=== PATIENT | male | born 2000 | race Hispanic/Latino ===

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

== ENCOUNTER 2021-09-04 09:39 | Emergency (ER) | payer SELFPAY ==
[2021-09-04] MEDS ORDERED: NA CHLORIDE 0.9% 1,000 ML ONE (10:16)
[2021-09-04] MEDS ORDERED: METOCLOPRAMIDE 10 MG/2mL INJ ONE (10:16)
[2021-09-04] MEDS ORDERED: DIPHENHYDRAMINE 50 MG/ML VIAL ONE (10:16)
[2021-09-04] MEDS ORDERED: dexAMETHasone 10 MG/ML VIAL ONE (10:16)
[2021-09-04 10:35] LABS: Absolute Lymphocytes (CBC) 3.5 K/uL (0.7-4.9); Lymphocytes % 37.9 % (15.3-44.8); MCV 95.2 fL (80-100); MPV 8.4 fL (7.6-11.3); RBC Red Blood Cell Count 5.25 M/uL (4.33-5.43)
[2021-09-04 10:40] LABS: Protime INR 0.99
--- NOTE | 2021-09-04 10:51 | RAD REPORT ---
EXAM DESCRIPTION: CT - Head Brain Wo Cont - 09/04/2021 10:30 am CLINICAL HISTORY: Headache COMPARISON: 2015 TECHNIQUE: Computed axial tomography of the head was obtained. IV contrast was not requested. All CT scans are performed using dose optimization technique as appropriate and may include automated exposure control or mA/KV adjustment according to patient size. FINDINGS: An intracranial bleed is not seen . The ventricles are normal in caliber. No significant hypodense areas within the brain visualized No extra-axial fluid collection is noted. Fluid within the sinuses/ mastoids is not seen. IMPRESSION: No acute intracranial abnormality is seen. If patient's symptoms persist MRI of the bra in would be recommended.
[2021-09-04 10:56] LABS: Albumin 3.9 g/dL (3.4-5.0); Bilirubin Total 0.3 mg/dL (0.2-1.0); Protein, Total 7.9 g/dL (6.4-8.2)
--- NOTE | 2021-09-04 12:03 | ER ---
Nurse's Notes [facility] Name: Triston Ballard Age: 21 yrs Sex: Male : 2000 Arrival Date: 09/04/2021 Time: 09:41 Bed 14 Private MD: Diagnosis: Unspecified otitis externa, right ear;Headache Presentation: 09/04 09:55 Chief complaint: Patient states: I have been having this headache to the right temporal jg9 area for 3 days and today when I woke up I was very unsteady on my feet and my vision was blurry in the right eye. I normally have headache on both temporal sides but his one is different in that it has lasted longer and is only on one side. Coronavirus screen: Vaccine status: Patient reports receiving the 2nd dose of the covid vaccine. Ebola Screen: Patient negative for fever greater than or equal to 101.5 degrees Fahrenheit, and additional compatible Ebola Virus Disease symptoms Patient denies exposure to infectious person. Patient denies travel to an Ebola-affected area in the 21 days before illness onset. Initial Sepsis Screen: Does the patient meet any 2 criteria? No. Patient's initial sepsis screen is negative. Does the patient have a suspected source of infection? No. Patient's initial sepsis screen is negative. Risk Assessment: Do you want to hurt yourself or someone else? Patient reports no desire to harm self or others. Onset of symptoms is unknown. 09:55 [place] [facility] [place] Acuity: JULIANNE 3 g9 Triage Assessment: 09:55 Headache History: The patient has had previous headaches and this one is different than jg9 previous episodes. General: Appears uncomfortable, Behavior is calm, cooperative. Pain: Complains of pain in right buddhism Pain currently is 9 out of 10 on a pain scale. Pain began 2-3 days ago. Also complains of blurred vision. Neuro: Reports headache in right that is the "worst ever", since 3 days. Cardiovascular: No deficits noted. Respiratory: No deficits noted. GI: No deficits noted. : No deficits noted. Derm: No deficits noted. Musculoskeletal: No deficits noted. Historical: - Allergies: 10:02 NKA; jg9 - PMHx: 10:02 headaches; blood clot in r leg; jg9 - Immunization history:: Client reports receiving the 2nd dose of the Covid vaccine, Pneumococcal vaccine is not up to date, Flu vaccine is up to date. - Social history:: Smoking status: Patient reports the use of cigarette tobacco products, denies chronic smoking, but will smoke occasionally. Screenin:05 Abuse screen: Denies threats or abuse. Denies injuries from another. Nutritional jg9 screening: No deficits noted. Tuberculosis screening: No symptoms or risk factors identified. Fall Risk None identified. Assessment: 10:05 General: Appears in no apparent distress. uncomfortable, Behavior is calm, cooperative. vg1 Pain: Complains of pain in head Pain currently is 9 out of 10 on a pain scale. Pain began 2-3 days ago. Noted to be grimacing. Neuro: Level of Consciousness is awake, alert, obeys commands, Oriented to person, place, time, situation. Cardiovascular: Patient's skin is warm and dry. Respiratory: Airway is patent Respiratory effort is even, unlabored. GI: Abdomen is round non-distended, Patient currently denies pain, vomiting. : No signs and/or symptoms were reported regarding the genitourinary system. EENT: No signs and/or symptoms were reported regarding the EENT system. Derm: Skin is intact, is healthy with good turgor. Musculoskeletal: Circulation, motion, and sensation intact. 11:23 Reassessment: Patient appears in no apparent distress at this time. Patient and/or vg1 family updated on plan of care and expected duration. Pain level reassessed. Patient is alert, oriented x 3, equal unlabored respirations, skin warm/dry/pink. Patient states feeling better. 12:26 Reassessment: Patient appears in no apparent distress at this time. No changes from vg1 previously documented assessment. Patient and/or family updated on plan of care and expected duration. Pain level reassessed. Patient is alert, oriented x 3, equal unlabored respirations, skin warm/dry/pink. Vital Signs: 09:55 BP 127 / 78; Pulse 58; Resp 16 S; Temp 96.6(TE); Pulse Ox 100% on R/A; Weight 97.52 kg jg9 (R); Height 5 ft. 7 in. (170.18 cm) (R); Pain 9/10; 10:15 BP 126 / 77; Pulse 59; Resp 16; Pulse Ox 100% on R/A; vg1 11:21 BP 110 / 72; Pulse 60; Resp 14; Pulse Ox 98% on R/A; vg1 09:55 Body Mass Index 33.67 (97.52 kg, 170.18 cm) jg9 ED Course: 09:41 Patient arrived in ED. am2 09:44 Dick Ma, JOHNSON is PHCP. pm1 09:44 Jason Cifuentes MD is Attending Physician. pm1 10:02 Triage completed. jg9 10:05 Mona Hackett, RN is Primary Nurse. vg1 10:05 Arm band placed on right wrist. jg9 10:05 Patient has correct armband on for positive identification. Bed in low position. Call jg9 light in reach. Side rails up X 1. 10:05 Door closed. Noise minimized. Lights dimmed. jg9 10:14 Initial lab(s) drawn, by il, sent to lab. Inserted saline lock: 20 gauge in right vg1 antecubital area, using aseptic technique. Blood collected. 10:32 CT Head Brain wo Cont In Process Unspecified. EDMS 12:26 No provider procedures requiring assistance completed. IV discontinued, intact, vg1 bleeding controlled, No redness/swelling at site. Pressure dressing applied. Administered Medications: 10:16 Drug: Decadron - Dexamethasone 10 mg Route: IVP; Site: left antecubital; vg1 12:25 Follow up: Response: No adverse reaction vg1 10:18 Drug: Benadryl (diphenhydrAMINE) 12.5 mg Route: IVP; Site: right antecubital; vg1 12:25 Follow up: Response: No adverse reaction vg1 10:20 Drug: Reglan (metoCLOPramide) 10 mg Route: IVP; Site: right antecubital; vg1 12:25 Follow up: Response: No adverse reaction; Marked relief of symptoms vg1 10:20 Drug: NS 0.9% 1000 ml Route: IV; Rate: 1000 ml; Site: right antecubital; vg1 12:25 Follow up: IV Status: Completed infusion; IV Intake: 1000ml vg1 Medication: 10:05 VIS not applicable for this client. vg1 Intake: 12:25 IV: 1000ml; Total: 1000ml. vg1 Outcome: 12:03 Discharge ordered by . pm1 12:25 Discharged to home ambulatory. vg1 12: Condition: good 12:25 Discharge instructions given to patient, Instructed on discharge instructions, follow up and referral plans. medication usage, Demonstrated understanding of instructions, follow-up care, medications, Prescriptions given X 3. 12:27 Patient left the ED. vg1 Signatures: Dispatcher [employer] EDWA Dick Ma NP RETIREMENT ADMINISTRATOR pm1 Genie Angel am2 Mona Hackett, RN RN vg1 Maya Bacon RN RN jg9
--- NOTE | 2021-09-04 12:03 | EDPHYS ---
Physician Documentation [facility] Name: Triston Ballard Age: 21 yrs Sex: Male : 2000 Arrival Date: 09/04/2021 Time: 09:41 Bed 14 Private MD: ED Physician Jason Cifuentes HPI: 09/04 09:57 This 21 yrs old Male presents to ER via Ambulatory with complaints of pm1 Headache, Worst Ever. 09:57 The patient complains of pain to the periauricular with radiation to forehead, cheek pm1 and jaw. The patient describes the headache as aching. Onset: The symptoms/episode began/occurred 4 day(s) ago, Reports pain after having water in his ear and saw his PCP. Instructed to use [id number] medications to remove water. . Associated signs and symptoms: Pertinent negatives: fever, nausea, vision changes, vomiting. Severity of symptoms: in the emergency department the pain is actually worse. The symptoms are alleviated by Darkened room, the symptoms are aggravated by moving his jaw, palpation. The patient has not experienced similar symptoms in the past. The patient has not recently seen a physician. Historical: - Allergies: 10:02 NKA; jg9 - PMHx: 10:02 headaches; blood clot in r leg; jg9 - Immunization history:: Client reports receiving the 2nd dose of the Covid vaccine, Pneumococcal vaccine is not up to date, Flu vaccine is up to date. - Social history:: Smoking status: Patient reports the use of cigarette tobacco products, denies chronic smoking, but will smoke occasionally. ROS: 10:06 Constitutional: Negative for fever, chills, and weight loss. pm1 10:06 Eyes: Negative for injury, pain, redness, and discharge. 10:06 Neck: Negative for injury, pain, and swelling, Cardiovascular: Negative for chest pain, palpitations, and edema, Respiratory: Negative for shortness of breath, cough, wheezing, and pleuritic chest pain, Abdomen/GI: Negative for abdominal pain, nausea, vomiting, diarrhea, and constipation, Skin: Negative for injury, rash, and discoloration. 10:06 ENT: Positive for ear pain, Negative for sore throat. 10:06 Neuro: Positive for headache. 10:06 All other systems are negative. pm1 Exam: 10:06 Constitutional: This is a well developed, well nourished patient who is awake, alert, pm1 and in no acute distress. 10:06 Skin: Warm, dry with normal turgor. Normal color with no rashes, no lesions, and no evidence of cellulitis. MS/ Extremity: Pulses equal, no cyanosis. Neurovascular intact. Full, normal range of motion. 10:06 Head/face: Noted is no obvious of injury or deformity except tenderness, of the right side of forehead, right ear and right lutheran. 10:06 ENT: Ear canal(s): erythema, of the right canal, swelling, of the right canal, TM's: no acute changes, Dental exam: no acute changes. 10:06 Cardiovascular: Exam negative for acute changes, Rate: normal, Rhythm: regular, Pulses: no pulse deficits are appreciated. 10:06 Respiratory: Exam negative for acute changes, respiratory distress, shortness of breath. 10:06 Neuro: Exam negative for acute changes, Orientation: is normal, Mentation: is normal, Motor: is normal, moves all fours. Vital Signs: 09:55 BP 127 / 78; Pulse 58; Resp 16 S; Temp 96.6(TE); Pulse Ox 100% on R/A; Weight 97.52 kg jg9 (R); Height 5 ft. 7 in. (170.18 cm) (R); Pain 9/10; 10:15 BP 126 / 77; Pulse 59; Resp 16; Pulse Ox 100% on R/A; vg1 11:21 BP 110 / 72; Pulse 60; Resp 14; Pulse Ox 98% on R/A; vg1 09:55 Body Mass Index 33.67 (97.52 kg, 170.18 cm) jg9 MDM: 09:46 Patient medically screened. pm1 09:57 Differential diagnosis: cluster headache, migraine, otitis, subarachnoid bleed, pm1 subdural hematoma, temporal arteritis, tension headache, trigeminal neuralgia. 11:58 ED course: Patient reports significant improvement in pain, currently 3/10. pm1 11:58 Data reviewed: vital signs. Data interpreted: Pulse oximetry: on room air is 98 %. pm1 Interpretation: normal. Counseling: I had a detailed discussion with the patient and/or guardian regarding: the historical points, exam findings, and any diagnostic results supporting the discharge/admit diagnosis, the need for outpatient follow up, a family practitioner, a neurologist, to return to the emergency department if symptoms worsen or persist or if there are any questions or concerns that arise at home. 09/04 09:56 Order name: CBC with Diff; Complete Time: 10:48 pm1 09/04 09:56 Order name: CMP; Complete Time: 11:02 pm1 07 09:56 Order name: CT Head Brain wo Cont; Complete Time: 11:02 pm1 09/04 09:56 Order name: Ptt, Activated; Complete Time: 10:48 pm1 09/04 09:56 Order name: PT-INR; Complete Time: 10:48 pm1 09/04 09:56 Order name: IV Saline Lock; Complete Time: 10:25 pm1 Administered Medications: 10:16 Drug: Decadron - Dexamethasone 10 mg Route: IVP; Site: left antecubital; vg1 12:25 Follow up: Response: No adverse reaction vg1 10:18 Drug: Benadryl (diphenhydrAMINE) 12.5 mg Route: IVP; Site: right antecubital; vg1 12:25 Follow up: Response: No adverse reaction vg1 10:20 Drug: Reglan (metoCLOPramide) 10 mg Route: IVP; Site: right antecubital; vg1 12:25 Follow up: Response: No adverse reaction; Marked relief of symptoms vg1 10:20 Drug: NS 0.9% 1000 ml Route: IV; Rate: 1000 ml; Site: right antecubital; vg1 12:25 Follow up: IV Status: Completed infusion; IV Intake: 1000ml vg1 Disposition: 13:17 Co-signature as Attending Physician, Jason Cifuentes MD. rn Disposition Summary: 09/04/21 12:03 Discharge Ordered Location: Home pm1 Problem: new pm1 Symptoms: have improved pm1 Condition: Stable pm1 Diagnosis - Unspecified otitis externa, right ear pm1 - Headache pm1 Followup: pm1 - With: Emergency Department - When: As needed - Reason: Worsening of condition Followup: pm1 - With: Private Physician - When: 2 - 3 days - Reason: Recheck today's complaints, Continuance of care, Re-evaluation by your physician Discharge Instructions: - Discharge Summary Sheet pm1 - Otitis Externa pm1 - General Headache Without Cause pm1 Forms: - Medication Reconciliation Form pm1 - Thank You Letter pm1 - Antibiotic Education pm1 - Prescription Opioid Use pm1 Prescriptions: - Hydrocortisone/neomycin/polymyxin otic suspension 10 mg (1%) / 3.5 mg (0.35%)/10,000 units / 10 mL - instill 4 drop by OTIC route every 6 hours for 10 days; 10 milliliter; Refills: pm1 0, Product Selection Permitted - Medrol (Eric) 4 mg Oral Tablets, Dose Pack - take 1 tablet by ORAL route as directed - follow package instructions; 1 pm1 packet; Refills: 0, Product Selection Permitted - Tylenol-Codeine #3 300 mg-30 mg Oral - take 2 tablet by ORAL route every 6 hours As needed; 20 tablet; Refills: 0, pm1 Product Selection Permitted Signatures: Dispatcher [employer] EDJason Erwin MD MD rn Marinas, Patrick, NP SURGICAL TECHNOLOGY INSTRUCTOR pm1 Mona Hackett RN RN vg1 Maya Bacon RN RN jg9
[2021-09-04 12:47] VITALS: TEMP 96.6
[2021-09-04 12:52] VITALS: BP 110/72; O2SAT 98
== END 2021-09-04 12:27 | disposition home or self-care (01) ==
LOC: ER 09:39
DX: H60.91 Unspecified otitis externa, right ear (principal); F17.210 Nicotine dependence, cigarettes, uncomplicated
CPT/HCPCS: 36415; 70450; 80053; 85025; 85610; 85730; 99284; J1100; J1200; J2765; J7030

== ENCOUNTER 2022-03-06 17:35 | Emergency (ER) | payer SELFPAY ==
--- OUTSIDE RECORDS SUMMARY | 2022-03-06 17:38 | XMS REPORT | Continuity of Care Document ---
:2000 Author Organization [facility] t Address [address] [place] [address] Care Team Providers Name Role Phone PCP, PATIENT DOES NOT HAVE A Primary Care Physician UnavailVIANEY Garg Attending Clinician Unavailable Vianey Suggs Attending Clinician Laura Sanders RN Attending Clinician Unavailable Ana Maria Zhang Attending Clinician Doctor Unassigned, [employer] Attending Clinician Unavailable IRMA DSOUZA Attending Clinician Unavailable Katja Gutierrez Attending Clinician Irma Dsouza MD Attending Clinician IRMA DSOUZA Admitting Clinician Unavailable Irma Dsouza MD Admitting Clinician Problems Condition Condition Condition Status Onset Resolution Last Treating Co mments Source Name Details Category Date Date Treatment Clinician Date DVT (deep DVT (deep Disease Active 2017-02 Uni vers venous venous 2-09 [place]y of [place] ) [address] [place] [address] Obesity Obesity Disease Active 2017-02 Univers (BMI (BMI 2-09 ity of 30-39.9) 30-39.9) 00:00: [address] Allergies, Adverse Reactions, Alerts Allergy Allergy Status Severity Reaction(s) Onset Inactive Treating Comm ents Source Name Type Date Date Clinician NO KNOWN Drug Active Univers ALLERGIE Class ity of S [facility] Social History Social Habit Start Date Stop Date Quantity Comments Source History SDOH University o f Alcohol Frequency [place] [facility] History SDOH University o f Alcohol Std [place] [facility] Drinks Branch History SDOH University o f Alcohol Binge [place] [facility] Exposure to Not sure University of SARS-CoV-2 [facility] (event) Branch History of Cigar Smoker University o f tobacco use [facility] Tobacco use and 2019-08-02 2019-08-02 Never used Universit y of exposure 00:00:00 00:00:00 [facility] Alcohol intake 2019-08-02 2019-08-02 Current drinker Unive rsity of 00:00:00 00:00:00 of alcohol [place] [facility] (finding) Branch Tobacco Comment 2018-02-04 2018-02-04 1 cigar a week Unive rsity of 00:00:00 00:00:00 for the past 1.5 [place] [facility] dical years [place] Alcohol Comment 2017-05-12 2017-05-12 socially Universit y of 00:00:00 00:00:00 [facility] Sex Assigned At [birth year] Universit y of 00:00:00 00:00:00 [facility] Smoking Status Start Date Stop Date Source Former smoker 2019-08-02 00:00:00 2019-08-02 00:00:00 Universi ty of [facility] Current some 2019-01-07 00:00:00 [facility] Medications Ordered Filled Start Stop Current Ordering Indication Dosage Frequency Signature Comments Components Source Medication Medication Date Date Medication? Clinician (SIG) Name Name HYDROcodone 2021- No 1{tbl} 1 tablet, Univers -acetaminop -09 27-08 Oral, ity of hen (NORCO 08:30: 07:29 ONCE, 1 [place] 5) 5-325 mg 00 :00 dose, On Medi cindi tablet 1 03/06/21 Branc h tablet at 0230, KEMI colchicine Yes [id number] Take 2 U nivers 0.6 mg 1-08 pills by ity of tablet 00:00: mouth [place] 00 followed Medical by 1 pill Branch one hour after acetaminoph Yes [id number] 1{tbl} Take 1 Un shantel en-codeine 1-08 tablet by ity of 300-30 mg 00:00: mouth [place] tablet 00 every 4 Medical (four) Branch hours as needed for Pain (scale 7-10). Indication s: acute pain apixaban 5 2020-0 Yes [id number] 5mg Take 1 Unive rs mg tablet 6-29 tablet by ity o f 00:00: mouth 2 (two) Medical times Branch daily. Indication s: Treatment to Prevent Recurrence of a Clot in a Deep Vein apixaban 5 2020-0 Yes [id number] 5mg Take 1 Unive rs mg tablet 6-29 tablet by ity o f 00:00: mouth 2 (two) Medical times Branch daily. Indication s: Treatment to Prevent Recurrence of a Clot in a Deep Vein apixaban 5 2020-0 Yes [id number] 5mg Take 1 Unive rs mg tablet 6-29 tablet by ity o f 00:00: mouth 2 (two) Medical times Branch daily. Indication s: Treatment to Prevent Recurrence of a Clot in a Deep Vein apixaban 5 2020-0 Yes [id number] 5mg Take 1 Unive rs mg tablet 6-29 tablet by ity o f 00:00: mouth 2 (two) Medical times Branch daily. Indication s: Treatment to Prevent Recurrence of a Clot in a Deep Vein apixaban 5 2020-0 Yes [id number] 5mg Take 1 Unive rs mg tablet 6-29 tablet by ity o f 00:00: mouth (two) Medical times Branch daily. Indication s: Treatment to Prevent Recurrence of a Clot in a Deep Vein apixaban 5 2020-0 2020- No 4675 5mg Take 1 Univ ers mg tablet 6-15 06-08 tablet by ity of 00:00: 00:00 mouth 2 00 : (two) Medical times Branch daily for 30 days. Indication s: Treatment to Prevent Recurrence of a Clot in a Deep Vein apixaban 5 2020-0 2020- No 4675 5mg Take 1 Univ ers mg tablet 6-15 06-08 tablet by ity of 00:00: 00:00 mouth 2 00 : (two) Medical times Branch daily. Indication s: Treatment to Prevent Recurrence of a Clot in a Deep Vein docusate 2020-0 Yes 100mg 100 mg, Unive rs (COLACE) 6-08 Oral, ity of capsule 100 14:00: DAILY, [place] mg 00 First dose Medical on Mon Branch 08/05/19 at 0900, Until Discontinu ed, Routine Polyethylen 2020-0 2020- No 17g 17 g, Univ ers e Glycol 08-04- Oral, ity of 3350 03:27: 05:15 ONCE, 1 [place] (MIRALAX) 00 :00 dose, Sun Medic al powder 17 g 08/04/19 at [facility] 2230, Routine melatonin 2019-0 2020- No 6mg 6 mg, Univer s (MELATIN) 08-04- Oral, ity of tablet 6 mg 02:41: 03:16 ONCE, 1 [place] :[place] dose, [place] Medical 08/04/19 at Branch 2145, Routine acetaminoph 2020-0 Yes [id number] 1{tbl} Take 1 Univers en-codeine 6- 9107 tablet by ity of 300-30 mg 00:00: mouth [place] tablet 00 every 4 Medical (four) Branch hours as needed (foot pain). acetaminoph 2019-0 Yes [id number] 1{tbl} Take 1 Univers en-codeine 6- 9107 tablet by ity of 300-30 mg 00:00: mouth [place] tablet 00 every 4 Medical (four) Branch hours as needed (foot pain). acetaminoph 2019-0 Yes [id number] 1{tbl} Take 1 Univers en-codeine 6- 9107 tablet by ity of 300-30 mg 00:00: mouth [place] tablet 00 every 4 Medical (four) Branch hours as needed (foot pain). acetaminoph 2020-0 Yes [id number] 1{tbl} Take 1 Univers en-codeine 6-08 9107 tablet by ity of 300-30 mg 00:00: mouth [place] tablet 00 every 4 Medical (four) Branch hours as needed (foot pain). acetaminoph 2020-0 2021- No [id number] 1{tbl} Take 1 Univers en-codeine 6-08 -08 9107 tablet by ity of 300-30 mg 00:00: 00:00 mouth [place] tablet 00 :00 every 4 Medical (four) Branch hours as needed (foot pain). rivaroxaban 2019-0 2020- No [id number] 15mg Take 1 Uni vers (XARELTO) 08-04-30 tablet by ity of 15 mg 00:00: 04:59 mouth 2 [place] tablet 00 :00 (two) Medical times Branch daily for 21 days. Indication s: Treatment to Prevent Recurrence of a Clot in a Deep Vein rivaroxaban 2019-2019- No 4675 15mg Take 1 Uni vers (XARELTO) 08-04 tablet by ity of 15 mg 00:00: 04:59 mouth 2 [place] tablet 00 :00 (two) Medical times Branch daily for 21 days. Indication s: Treatment to Prevent Recurrence of a Clot in a Deep Vein rivaroxaban 2019-2019- No 4675 15mg Take 1 Uni vers (XARELTO) 08-0430 tablet by ity of 15 mg 00:00: 04:59 mouth 2 [place] tablet 00 :00 (two) Medical times Branch daily for 21 days. Indication s: Treatment to Prevent Recurrence of a Clot in a Deep Vein apixaban 5 2019- No 4675 10mg Take 2 Univ ers mg tablet 08-04 tablets by ity of 00:00: 00:00 mouth 2 [place] 00 :00 (two) Medical times Branch daily for 7 days. Indication s: Treatment to Prevent Recurrence of a Clot in a Deep Vein HYDROcodone Yes 1{tbl} 1 tablet, Univers -acetaminop 08-03 Oral, ity of hen (NORCO) 23:45: Q6HPRN, Cj as 10-325 mg 14 Starting Medica l tablet 1 08/04/19 Branc h tablet at 1845, Until Discontinu ed, Routine, Pain (scale 4-6) melatonin 2019- No 6mg 6 mg, Univer s (MELATIN) 08-03 Oral, ity of tablet 6 mg 08:06: 08:16 ONCE, 1 [place] :[place] dose, Sun Medical 08/04/19 at Branch 0315, Routine lidocaine 2019- No 1{patch 1 Patch, Univers (LIDODERM) 08-03 } Topical, ity of 5 % (700 07:45: 18:39 Administer [place] mg/patch) 00 :00 over 12 Medical patch 1 Hours, Branch Patch ONCE, 1 dose, 08/04/19 at 0245, Routine acetaminoph 2019- No 1{tbl} 1 tablet, Univers en-codeine 08-02 Oral, ity of (TYLENOL 20:14: 23:45 Q4HPRN, [place] #3) 300-30 30 :01 Starting Medic al mg tablet 1 08/03/19 Br anch tablet at 1514, Until 08/04/19 at 1845, Routine, Pain (scale 4-6) morpHINE 2019-0 Yes 2mg 2 mg, Slow Uni vers injection 2 08-02 IV Push, ity of mg 05:57: [facility] [place] [facility] Starting Medical 08/03/19 Branch at 0057, Until Discontinu ed, Routine, Pain (scale 7-10) enoxaparin 2019-0 2020- No 1mg/kg 100 mg Un shantel (LOVENOX) 08-02- (rounded ity o f injection 01:45: 00:54 [place] 104.3 [place] 100 mg 00 :42 mg = 1 Medical mg/kg Branch ?104.3 kg), [facility], ONCE, 1 dose, Mon08/02/19 at 204, KEMI traMADol 2019- No 50mg 50 mg, Univer s (ULTRAM) 08-02 Oral, ity of tablet 50 01:18: 20:14 Q8HPRN, [place] mg 13 :50 Starting Medical 08/02/19 Branch at 2018, Until 08/03/19 at 1514, Routine, Pain (scale 4-6) enoxaparin 2019-0 Yes 1mg/kg 100 mg Uni vers (LOVENOX) 08-02 (rounded ity of injection 01:00: [place] 104.3 [place] 100 mg 00 mg = 1 Medical mg/kg Branch ?104.3 kg), [facility], Q12H, First dose on Mon08/02/19 at 2000, Until Discontinu ed, Routine iohexol 2019- 2020- No 120mL 120 mL, Unive rs (OMNIPAQUE 08-01 Intravenou it y of 350 23:16: 23:17 s, ONCE, 1 [place] BULK-150 00 :00 dose, Fri Medica l mL) 08/02/19 at Branch injection 1830, 120 mL Routine traMADol 50 2018-0 Yes [id number] 50mg Take 1 Univers mg tablet 10-08 [id number] tablet by ity of 00:00: mouth [place] 00 every 6 Medical (six) Branch hours as needed for Pain (scale 4-6). traMADol 50 2018- Yes [id number] 50mg Take 1 Univers mg tablet 8-12 [id number] tablet by ity of 00:00: mouth [place] 00 every 6 Medical (six) Branch hours as needed for Pain (scale 4-6). traMADol 50 2018- 2020- No [id number] 50mg Take 1 Univers mg tablet 8-12 06-08 [id number] tablet by it y of 00:00: 00:00 mouth [place] 00 :00 every 6 Medical (six) Branch hours as needed for Pain (scale 4-6). acetaminoph Yes [id number] 1{tbl} Take 1 Univers en-codeine 7-04 9107 tablet by ity of 300-30 mg 00:00: mouth [place] tablet 00 every 4 Medical (four) Branch hours as needed (foot pain). acetaminoph Yes [id number] 1{tbl} Take 1 Univers en-codeine 7-04 9107 tablet by ity of 300-30 mg 00:00: mouth [place] tablet 00 every 4 Medical (four) Branch hours as needed (foot pain). acetaminoph Yes [id number] 1{tbl} Take 1 Univers en-codeine 7-04 9107 tablet by ity of 300-30 mg 00:00: mouth [place] tablet 00 every 4 Medical (four) Branch hours as needed (foot pain). acetaminoph 2020- No [id number] 1{tbl} Take 1 Univers en-codeine 7-04 06-08 9107 tablet by ity of 300-30 mg 00:00: 00:00 mouth [place] tablet 00 :00 every 4 Medical (four) Branch hours as needed (foot pain). cyclobenzap Yes [id number] 10mg Take 1 Univers rine 10 mg 6-17 tablet by ity of tablet 00:00: mouth 3 [place] 00 (three) Medical times Branch daily. cyclobenzap 2019- No [id number] 10mg Take 1 Univers rine 10 mg 6-17 08-12 tablet by ity of tablet 00:00: 00:00 mouth 3 [place] 00 :00 (three) Medical times Branch daily. traMADOL 2018-0 Yes [id number] 50mg Take 1 Univers (ULTRAM) 50 3-24 9109 tablet by ity of mg tablet 00:00: mouth [place] 00 every 6 Medical (six) Branch hours as needed for Pain (scale 4-6). traMADOL 2019- No [id number] 50mg Take 1 Univers (ULTRAM) 50 3-24 08-12 9109 tablet by it y of mg tablet 00:00: 00:00 mouth [place] 00 :00 every 6 Medical (six) Branch hours as needed for Pain (scale 4-6). apixaban 5 2017-02 Yes 5mg Take 1 Unive rs mg tablet 2-18 tablet by ity o f 00:00: mouth 2 [place] 00 (two) Medical times Branch daily. cephALEXin 2017-02 Yes 500mg Take 1 Univ ers (KEFLEX) 2-18 capsule by ity o f 500 mg 00:00: mouth 4 [place] capsule 00 (four) Medical times Branch daily. apixaban 5 2017-02 Yes 5mg Take 1 Unive rs mg tablet 2-18 tablet by ity o f 00:00: mouth 2 [place] 00 (two) Medical times Branch daily. cephALEXin 2017-02 Yes 500mg Take 1 Univ ers (KEFLEX) 2-18 capsule by ity o f 500 mg 00:00: mouth 4 [place] capsule 00 (four) Medical times Branch daily. apixaban 2017-02 Yes 5mg Take 1 Unive rs mg tablet 2-18 tablet by ity o f 00:00: mouth 2 [place] 00 (two) Medical times Branch daily. cephALEXin 2017-02 Yes 500mg Take 1 Univ ers (KEFLEX) 2-18 capsule by ity o f 500 mg 00:00: mouth 4 [place] capsule 00 (four) Medical times Branch daily. apixaban 5 2017-02- No 5mg Take 1 Univ ers mg tablet 2-18 06-08 tablet by ity of 00:00: 00:00 mouth 2 [place] 00 :00 (two) Medical times Branch daily. cephALEXin 2017-02- No 500mg Take 1 Uni vers (KEFLEX) 2-18 06-08 capsule by ity of 500 mg 00:00: 00:00 mouth 4 [place] capsule 00 :00 (four) Medical times Branch daily. apixaban 5 2017-02 Yes 10mg Take 2 Unive rs mg tablet 2-11 tablets by ity of 00:00: mouth 2 [place] 00 (two) Medical times Branch daily. apixaban 5 2017-02 Yes 10mg Take 2 Unive rs mg tablet 2-11 tablets by ity of 00:00: mouth 2 [place] 00 (two) Medical times Branch daily. apixaban 5 2017-02 Yes 10mg Take 2 Unive rs mg tablet 2-11 tablets by ity of 00:00: mouth 2 [place] 00 (two) Medical times Branch daily. apixaban 5 2017-02 2020- No 10mg Take 2 Univ ers mg tablet 2-11 06-08 tablets by ity of 00:00: 00:00 mouth 2 [place] 00 :00 (two) Medical times Branch daily. Immunizations Ordered Filled Immunization Date Status Comments [facility] e Immunization Name Name Influenza Virus 2017-05-12 Completed Universit y of Vaccine Quad IM 3+ 00:00:00 [facility] Influenza Virus 2017-05-12 Completed Universit y of Vaccine Quad IM 3+ 00:00:00 [facility] Influenza Virus 2017-05-12 Completed Universit y of Vaccine Quad IM 3+ 00:00:00 [facility] Influenza Virus 2017-05-12 Completed Universit y of Vaccine Quad IM 3+ 00:00:00 [facility] Influenza Virus 2017-05-12 Completed Universit y of Vaccine Quad IM 3+ 00:00:00 [facility] Influenza Virus 2017-05-12 Completed Universit y of Vaccine Quad IM 3+ 00:00:00 [facility] Influenza Virus 2017-05-12 Completed Universit y of Vaccine Quad IM 3+ 00:00:00 [facility] Influenza Virus 2017-05-12 Completed Universit y of Vaccine Quad IM 3+ 00:00:00 [facility] Vital Signs Vital Name Observation Time Observation Value Comments Source Systolic blood 2021-03-06 07:31:00 132 mm[Hg] Univer sity of pressure [facility] Diastolic blood 2021-03-06 07:31:00 89 mm[Hg] Unive rsity of pressure [facility] Heart rate 2021-03-06 07:31:00 105 /min [facility] Body temperature 2021-03-06 06:03:00 37.67 Jennie [facility] Respiratory rate 2021-03-06 06:03:00 18 /min Univ ersity of [place] [facility] Body height 2021-03-06 06:03:00 170.2 cm Universi ty of [place] [facility] Body weight 2021-03-06 06:03:00 102.513 kg Universi ty of [place] [facility] BMI 2021-03-06 06:03:00 35.40 kg/m2 Universi ty of [place] [facility] Oxygen saturation in 2021-03-06 06:03:00 97 /min University of Arterial blood by [place] [facility] cindi Pulse oximetry Branch Heart rate 2019-08-05 15:50:00 108 /min Universi ty of [place] [facility] Body temperature 2019-08-05 15:50:00 36.17 Jennie Univ ersity of [place] [facility] Respiratory rate 2019-08-05 15:50:00 18 /min Univ ersity of [place] [facility] Oxygen saturation in 2019-08-05 15:50:00 94 /min University of Arterial blood by [place] [facility]i cindi Pulse oximetry Branch Systolic blood 2019-08-05 15:50:00 124 mm[Hg] Univer sity of pressure [place] [facility] Diastolic blood 2019-08-05 15:50:00 80 mm[Hg] Unive rsity of pressure [place] [facility] Body weight 2019-08-05 09:13:00 102.468 kg Universi ty of [place] [facility] BMI 2019-08-05 09:13:00 38.78 kg/m2 Universi ty of [place] [facility] Body height 2019-08-02 20:57:00 162.6 cm Universi ty of [place] [facility] Systolic blood 2018-10-08 19:00:00 128 mm[Hg] Univer sity of pressure [place] [facility] Diastolic blood 2018-10-08 19:00:00 78 mm[Hg] Unive rsity of pressure [place] [facility] Heart rate 2018-10-08 19:00:00 109 /min Universi ty of [place] [facility] Respiratory rate 2018-10-08 19:00:00 20 /min Univ ersity of [place] [facility] Oxygen saturation in 2018-10-08 19:00:00 97 /min University of Arterial blood by [facility] cindi Pulse oximetry Branch Body temperature 2018-10-08 17:30:00 37.5 Jennie Univ ersity of [place] [facility] Body height 2018-10-08 17:30:00 165.1 cm Universi ty of [place] [facility] Body weight 2018-10-08 17:30:00 97.523 kg [facility] Medical [place] BMI 2018-10-08 17:30:00 35.78 kg/m2 [facility] Medical [place] Procedures Procedure Date / Time Performing Clinician Source Performed NOTICE OF PRIVACY 2021-03-06 05:54:45 Doctor Elly, [facility] PRACTICES [employer] Medical [place] CONSENT/REFUSAL FOR 2021-03-06 05:54:27 Doctor Elly [facility] DIAGNOSIS AND TREATMENT [employer] [facility] MEDICATION CORRESPONDENCE 2019-08-06 05:01:00 Doctor Elly, [facility] [employer] [facility] UNILATERAL VENOUS DUPLEX 2019-08-05 15:42:25 Donaldo Smith [facility] UPPER BY VASCULAR LAB Medical Br anch XR ELBOW <3 VW RIGHT 2019-08-04 15:40:55 Donaldo Smith [facility] BASIC METABOLIC PANEL 2019-08-03 08:41:00 Irma Dsouza [facility] (NA, K, CL, CO2, GLUCOSE, Medica l Branch BUN, CREATININE, CA) COVID-19 (ID NOW RAPID 2019-08-03 00:53:00 Kataj Saez [facility] TESTING) Medical Branch EKG-12 LEAD 2019-08-03 00:39:18 Korin Yen [facility] CT CHEST PULMONARY 2019-08-02 23:25:53 Katja Saez [facility] ANGIOGRAM Medical Branch UNILATERAL VENOUS DUPLEX 2019-08-02 21:43:52 Katja Saez [facility] LOWER EXTREMITY BY Medical [facility] h VASCULAR LAB COMP. METABOLIC PANEL 2019-08-02 21:41:00 Katja Saez [facility] ([id number]) Medical Branch CBC WITH DIFFERENTIAL 2019-08-02 21:41:00 Katja Saez [facility] Medical [place] EKG-12 LEAD 2019-08-02 21:33:27 Katja Saez [employer] [facility] [place] [facility] NOTICE OF PRIVACY 2019-08-02 21:24:25 Doctor Elly, [facility] PRACTICES [employer] Medical [place] CONSENT/REFUSAL FOR 2019-08-02 20:53:33 Doctor Ana Sanabria [facility] DIAGNOSIS AND TREATMENT [employer] [facility] XR ELBOW <3 VW RIGHT 2018-10-08 18:45:13 [facility]ey [facility]ers [facility] VW RIGHT 2018-10-08 18:45:13 Vianey Meyers [facility] CONSENT/REFUSAL FOR 2018-10-08 17:13:21 Doctor Ana Sanabria [facility] DIAGNOSIS AND TREATMENT [employer] [facility] Encounters Start End Encounter Admission Attending Care Care Encounter Source Date/Time Date/Time Type Type Clinicians Facility Department ID 2021-03-06 2021-03-06 Emergency X FELICIANO [facility] ERT [id number] Univers 00:29:00 01:37:00 [facility] 2021-03-06 2021-03-06 [facility] [id number] Univers 00:29:00 01:37:00 Vianey ROLLINS [id number] i ty of [place] 4[place]2.[place] [id number] [facility] 084 Branch 2020-08-29 2020-08-29 Nurse Laura Sanders [id number] Univers 00:00:00 00:00:00 Triage SEVEN [id number] it y of HOSPITAL 4.2.7.2.686 Cj as [id number] [facility] 019 Branch 2019-08-07 2019-08-07 Transition Haydee Zhnag [id number] Univers 00:00:00 00:00:00 of Care Ana Maria Dinero [id number] ity of [place] 4[place].2.686 [place] [id number] [facility] 403 Branch 2019-08-06 2019-08-06 Orders Doctor REYES [id number] Univers 00:00:00 00:00:00 Only Unassigned, SEVEN 350.1.13.10 ity of [employer] [facility] 4.2.7.2.686 Cj as [id number] [facility] 009 Branch 2019-08-02 2019-08-05 Inpatient X LIANNA [facility] [id number] Univers 15:59:29 13:35:00 SHEBEY ity of [facility] 2019-08-02 2019-08-05 [facility] Katja Saez [facility] [id number] Univers 15:59:29 13:35:00 Encounter Irma Dsouza 350.1.13.10 ity of [place] 4.2.7.2.686 [facility] [id number] [place] [id number] Branch 2019-08-02 2019-08-02 Orders Doctor AMY [id number] Univers 00:00:00 00:00:00 Only Unassigned, SEVEN 350.1.13.10 ity of [employer] HOSPITAL 4.2.7.2.686 Cj as [id number] [place] [address] Branch 2018-10-08 2018-10-08 Emergency [facility] [id number] Univers 12:31:39 14:41:00 Vianey Rollins 350.1.13.10 i ty of [place] 4.2.7.2.686 [facility] [id number] [place] 756474 Branch 2018-10-08 2018-10-08 Orders Doctor AMY [id number] Univers 00:00:00 00:00:00 Only Unassigned, SEVEN 350.1.13.10 ity of [employer] HOSPITAL 4.2.7.2.686 Cj as [phone] [address] Results Test Description Test Time Test Comments Results Result Sour e Comments XR ELBOW <3 VW Questionable Univers ity of RIGHT 7 epitrochlear [place] Medica l 18:27:55 lymphadenopathy. No Branc h acute bony abnormality. Mild swelling. EXAM: XR ELBOW <3 VW RIGHT HISTORY: pain COMPARISON: September 2018 FINDINGS: Imaging of the elbow demonstrates a traction enthesophyte versus remoteavulsion extending from the sublime tubercle. An IV catheter is seen overthe anterior lateral elbow joint line on the frontal projection only.Rounded soft tissue fullness is seen within the epitrochlear tissues. Noeffusion is present. Mild swelling is seen at the olecranon. [facility], Radiant Results Inft User - 08/04/2019 1:29 PM CDTEXAM:XR ELBOW <3 VW RIGHTHISTORY:pain COMPARISON:September 2018FINDINGS: Imaging of the elbow demonstrates a traction enthesophyte versus remoteavulsion extending from the sublime tubercle. An IV catheter is seen overthe anterior lateral elbow joint line on the frontal projection only.Rounded soft tissue fullness is seen within the epitrochlear tissues. Noeffusion is present. Mild swelling is seen at the olecranon.IMPRESSIO NQuestionable epitrochlear lymphadenopathy.No acute bony abnormality.Mild swelling. Basic Metabolic Panel (NA, K, CL, CO2, GLUCOSE, BUN, 2019-07 10:59:00 CREATININE, CA) Test Item Value Reference Range Interpretation Comme nts NA (test code = 1241896137) 136 mmol/L 135-145 K (test code = 1348234286) 3.9 mmol/L 3.5-5 CL (test code = 1495147609) 104 mmol/L 98-108 CO2 TOTAL (test code = 8458761228) 26 mmol/L 23-31 AGAP (test code = 6242789401) 2-16 BUN (test code = 2747888371) 9 mg/dL 7-23 GLUCOSE (test code = 3404947511) 119 mg/dL 70-110 H CREATININE (test code = 0.66 mg/dL 0.6-1.25 6364808915) CALCIUM (test code = 5548151604) 9.8 mg/dL 8.6-10.6 eGFR Calculation (Non- mL/min/1.73m2 Chinese) (test code = 5556288981) eGFR Calculation ( mL/min/1.73m2 Chinese) (test code = 9648625652) SARAH (test code = SARAH) Association of Glomerular Filtration Rate (GFR) and Staging of Kidney Disease* + +-------- + ------+| GFR (mL/min/1.73 m2) ?| With Kidney Damage ?| ?Without Kidney Damage+ +-- + +| ?>90 ?| ?Stage one ?| ? Normal ?+ +------- + -------+| ?60-89 ?| ?Stage two ?| ? Decreased GFR ? + +-------- + ------+| ?30-59 ?| ?Stage three ?| ? Stage three ? + +-------- + ------+| ?15-29 ?| ?Stage four ? | ? Stage four ?+ +------- + -------+| ?<15 (or dialysis) ? ?| ?Stage five ? | ? Stage five ?+ +------- + -------+ *Each stage assumes the associated GFR level has been in effect for at least three months. ?Stages 1 to 5, with or without kidney disease, indicate chronic kidney disease. Notes: Determination of stages one and two (with eGFR >59mL/min/1.73 m2) requires estimation of kidney damage for at least three months as defined by structural or functional abnormalities of the kidney, manifested by either:Pathological abnormalities or Markers of kidney damage (including abnormalities in the composition of the blood or urine or abnormalities in imaging tests). Lab Interpretation (test code = Abnormal 48043-1) [facility])2019-08-03 01:47:00 Test Item Value Reference Range Interpretation Comments SARS-CoV-2 Rapid ID NOW Not Detected Not Detected (test code = 39829-1) SARAH (test code = SARAH) ID NOW COVID-19 Assay is an isothermal nucleic acid amplification test intended for the qualitative detection of nucleic acid from SARS-CoV-2 viral RNA in nasopharyngeal ([employer]P) specimens. It is used under Emergency Use Authorization (EUA) by FDA. The limit of detection (LOD) of the assay is 125 Genome Equivalents/mL. A positive result is indicative of the presence of SARS-CoV-2 RNA. ?Clinical correlation with patient history and other diagnostic information is necessary to determine patient infection status. A negative (Not Detected) result does not preclude SARS-CoV-2 infection. In patients with clinical symptoms and other tests that are consistent with SARS-CoV-2 infection, negative results should be treated as presumptive negative and a new specimen should be tested with alternative PCR molecular test. Invalid: Please collect a new specimen for repeat patient testing if clinically indicated. Lab Interpretation Normal (test code = 45601-7) [facility] P[facility]MONARY [id number] 23:52:46 1. ?No acute pulmonary embolism. 2. ?Minimal nonspecific air is seen in bilateral glenohumeral articulations(4:32 and 51). Preliminary Report Dictated by Resident: Kaity Lopez ?MD. Purnima, have reviewed this study and agree with theabove report.PROCEDURE: CT ANGIO CHEST WITH CONTRAST - PE PROTOCOL CLINICAL INDICATION: 19 years Male PE suspected, high pretest prob COMPARISON: CT chest with contrast 02/13/2018. TECHNIQUE: ?Helical CT was performed and reconstructed at 1.25 mm slicethickness from lung apices to bases using 100 mL Omnipaque intravenouscontrast, without complication. ? Axial MIPs were generated and reviewed tofurther define anatomy and possible pathology. ? (DFOV =40 cm) FINDINGS: PULMONARY ARTERIES: Enhancement is appropriate for evaluation. No acute pulmonary embolism isidentified. CHEST: Lower neck/thyroid: Unremarkable. Lungs: Normal. Central airway: Unremarkable. Pleura: No pleural effusion, thickening or pneumothorax. Thoracic aorta and great vessels: ?Normal in diameter. Heart and pericardium: No detectable coronary arterial calcification.Unremarkable cardiac morphology and pericardium. Lymph nodes: No enlarged thoracic lymph nodes. Mediastinum: Unremarkable. Thoracic spine and chest wall: Minimal nonspecific air is seen in bilateralglenohumeral articu lations (4:32 and 51). Other Lines/Tubes/Devices/Hardware: None Visualized upper abdomen: Unremarkable. [facility], Radiant Results Inft User - 08/02/2019 6:53 PM CDTPROCEDURE: CT ANGIO CHEST WITH CONTRAST - PE PROTOCOLCLINICAL INDICATION: 19 years Male PE suspected, high pretest prob COMPARISON: CT chest with contrast 02/13/2018.TECHNIQUE: Helical CT was performed and reconstructed at 1.25 mm slicethickness from lung apices to bases using 100 mL Omnipaque intravenouscontrast, without complication. Axial MIPs were generated and reviewed tofurther define anatomy and possible pathology. (DFOV = 40 cm)FINDINGS:PULMONARY ARTERIES: Enhancement is appropriate for evaluation. Noacute pulmonary embolism isidentified.CHEST:Lower neck/thyroid: Unremarkable.Lungs: Normal.Central airway: Unremarkable.Pleura: No pleural effusion, thickening or pneumothorax.Thoracic aorta and great vessels: Normal in diameter.Heart and pericardium: No detectable coronary arterial calcification.Unremarkable cardiac morphology and pericardium.Lymph nodes: No enlarged thoracic lymph nodes.Mediastinum: Unremarkable.Thoracic spine and chest wall: Minimal nonspecific air is seen in bilateralglenohumeral articulations (4:32 and 51).Other Lines/Tubes/Devices/Hardware: NoneVisualized upper abdomen: Unremarkable. IMPRESSION1. No acute pulmonary embolism.2. Minimal nonspecific air is seen in bilateral glenohumeral articulations(4:32 and 51).Preliminary Report Dictated by Resident: Kaity Horowitz MD., have reviewed this study and agree with theabove report.[facility]. METABOLIC PANEL (95631) 2019-08-02 22:39:00 Test Item Value Reference Range Interpretation Comments NA (test code = 138 mmol/L 135-145 4480628730) K (test code = 4.5 mmol/L 3.5-5 7072653153) CL (test code = 101 mmol/L 98-108 7489817573) CO2 TOTAL (test code = 29 mmol/L 23-31 7913198538) AGAP (test code = 2-16 6864148931) BUN (test code = 10 mg/dL 7-23 4318686577) GLUCOSE (test code = 103 mg/dL 70-110 7100630529) CREATININE (test code = 0.61 mg/dL 0.6-1.25 1185602180) TOTAL BILI (test code = 0.9 mg/dL 0.1-1.6 6711348297) CALCIUM (test code = 10.4 mg/dL 8.6-10.6 9803361064) T PROTEIN (test code = 8.9 g/dL 6.3-8.2 H 6008179870) ALBUMIN (test code = 5.0 g/dL 3.5-5 9456763872) ALK PHOS (test code = 84 U/L 34-122 4852739147) ALTv (test code = 185 U/L 5-50 H 1742-6) AST(SGOT) (test code = 71 U/L 13-40 H 7207163309) eGFR Calculation mL/min/1.73m2 (Non-) (test code = 5288659332) eGFR Calculation mL/min/1.73m2 () (test code = 6680109281) SARAH (test code = SARAH) Association of Glomerular Filtration Rate (GFR) and Staging of Kidney Disease* + --+ --+ ------+| GFR (mL/min/1.73 m2) ?| With Kidney Damage ?| ?Without Kidney Damage+ --------+ --------+ +| ?>90 ?| ?Stage one ?| ? Normal ?+ ---+ ---+ -------+| ?60-89 ?| ?Stage two ?| ? Decreased GFR ? + --+ --+ ------+| ?30-59 ?| ?Stage three ?| ? Stage three ? + --+ --+ ------+| ?15-29 ?| ?Stage four ? | ? Stage four ?+ ---+ ---+ -------+| ?<15 (or dialysis) ? ?| ?Stage five ? | ? Stage five ?+ ---+ ---+ -------+ *Each stage assumes the associated GFR level has been in effect for at least three months. ?Stages 1 to 5, with or without kidney disease, indicate chronic kidney disease. Notes: Determination of stages one and two (with eGFR >59mL/min/1.73 m2) requires estimation of kidney damage for at least three months as defined by structural or functional abnormalities of the kidney, manifested by either:Pathological abnormalities or Markers of kidney damage (including abnormalities in the composition of the blood or urine or abnormalities in imaging tests). Lab Interpretation Abnormal (test code = 44357-4) [facility] WITH [id number] 21:53:00 Test Item Value Reference Range Interpretation Comments WBC (test code = See_Comment H [Automated 4236-2) message] The sy stem which generated this result transmitted reference range : 4.20 - 10.70 10*3/?L. The reference range was not used to interpret this result as normal/abnormal . RBC (test code = See_Comment [Automated 279-8) message] The sy stem which generated this result transmitted reference range : 4.26 - 5.52 10*6/?L. The reference range was not used to interpret this result as normal/abnormal . HGB (test code = 16.0 g/dL 12.2-16.4 718-7) HCT (test code = 45.3 % 38.4-49.3 4544-3) MCV (test code = 95.0 fL 81.7-95.6 787-2) MCH (test code = 33.5 pg 26.1-32.7 H 785-6) MCHC (test code = 35.3 g/dL 31.2-35 H 786-4) RDW-SD (test code = 41.3 fL 38.5-51.6 25196-1) RDW-CV (test code = 11.8 % 12.1-15.4 L 788-0) PLT (test code = See_Comment [Automated 777-3) message] The sy stem which generated this result transmitted reference range : 150 - 328 10*3/ ?L. The reference r lynn was not used to interpret this result as normal/abnormal . MPV (test code = 10.3 fL 9.8-13 34179-0) NRBC/100 WBC (test See_Comment [Automat ed code = 3438728069) message] The system which generated this result transmitted reference range : 0.0 - 10.0 /100 WBCs. The refer ence range was not u sed to interpret th is result as normal/abnormal . NRBC x10^3 (test code <0.01 See_Comment [Auto mated = 4462185804) message] The s ystem which generated this result transmitted reference range : 10*3/?L. The reference range was not used to interpret this result as normal/abnormal . GRAN MAT (NEUT) % 57.3 % (test code = 770-8) IMM GRAN % (test code 0.40 % = 7506767314) LYMPH % (test code = 30.2 % 736-9) MONO % (test code = 8.9 % 5905-5) EOS % (test code = 2.6 % 713-8) BASO % (test code = 0.6 % 706-2) GRAN MAT x10^3(ANC) 6.53 10*3/uL 1.99-6.95 (test code = 6724633028) IMM GRAN x10^3 (test 0.05 10*3/uL 0-0.06 code = 5455083500) LYMPH x10^3 (test code 3.45 10*3/uL 1.09-3.23 H = 731-0) MONO x10^3 (test code 1.02 10*3/uL 0.36-1.02 = 742-7) EOS x10^3 (test code = 0.30 10*3/uL 0.06-0.53 711-2) BASO x10^3 (test code 0.07 10*3/uL 0.01-0.09 = 704-7) Lab Interpretation Abnormal (test code = 49121-3) [facility] VW [id number] 18:50:46 No acute osseous abnormality. EXAM: XR ELBOW <3 VW RIGHT, XR SHOULDER 2+ VW RIGHT HISTORY: 18 years-old Male right elbow pain COMPARISON: None. FINDINGS: Radiographs of the right shoulder demonstrate no acute fracture ordislocation. The joint spaces are maintained. No soft tissue abnormality isseen. Radiographs of the right elbow demonstrate no acute fracture ordislocation. The joint spaces are maintained. Osteophytosis is noted at theulnotrochlear joint. No soft tissue abnormality is seen. [facility], Radiant Results Inft User - 10/08/2018 1:52 PM CDTEXAM: XR ELBOW <3 VW RIGHT, XR SHOULDER 2+ VW RIGHTHISTORY: 18 years-old Male right elbow pain COMPARISON: None.FINDINGS:Radiographs of the right sh oulder demonstrate no acute fracture ordislocation. The joint spaces are maintained. No soft tissue abnormality isseen.Radiographs of the right elbow demonstrate no acute fracture ordislocation. The joint spaces are maintained. Osteophytosis is noted at theulnotrochlear joint. No soft tissue abnormality is seen.IMPRESSIONNo acute osseous abnormality.[facility] VW [id number] 18:50:46 No acute osseous abnormality. EXAM: XR ELBOW <3 VW RIGHT, XR SHOULDER 2+ VW RIGHT HISTORY: 18 years-old Male right elbow pain COMPARISON: None. FINDINGS: Radiographs of the right shoulder demonstrate no acute fracture ordislocation. The joint spaces are maintained. No soft tissue abnormality isseen. Radiographs of the right elbow demonstrate no acute fracture ordislocation. The joint spaces are maintained. Osteophytosis is noted at theulnotrochlear joint. No soft tissue abnormality is seen. [facility], Radiant Results Inft User - 10/08/2018 1:52 PM CDTEXAM: XR ELBOW <3 VW RIGHT, XR SHOULDER 2+ VW RIGHTHISTORY: 18 years-old Male right elbow pain COMPARISON: None.FINDINGS:Radiographs of the right shoulder demonstrate no acute fracture ordislocation. The joint spaces are maintained. No soft tissue abnormality isseen.Radiographs of the right elbow demonstrate no acute fracture ordislocation. The joint spaces are maintained. Osteophytosis is noted at theulnotrochlear joint. No soft tissue abnormality is seen.IMPRESSIONNo acute osseous abnormality.[facility]"
[2022-03-06] MEDS ORDERED: dexAMETHasone 10 MG/ML VIAL ONE (18:27)
[2022-03-06] MEDS ORDERED: KETOROLAC 30 MG/ML INJ ONE (18:27)
--- NOTE | 2022-03-06 19:39 | ER ---
Nurse's Notes [facility] Name: Triston Ballard Age: 21 yrs Sex: Male : 2000 Arrival Date: 03/06/2022 Time: 17:37 Bed 16 Private MD: Diagnosis: Gout, unspecified Presentation: 03/06 17:42 Chief complaint: Right foot pain x 4 days. Hx of gout. Coronavirus screen: At this hb time, the client does not indicate any symptoms associated with coronavirus-19. Ebola Screen: No symptoms or risks identified at this time. Initial Sepsis Screen: Does the patient meet any 2 criteria? No. Patient's initial sepsis screen is negative. Does the patient have a suspected source of infection? No. Patient's initial sepsis screen is negative. Risk Assessment: Do you want to hurt yourself or someone else? Patient reports no desire to harm self or others. Onset of symptoms was March 02, 2022. 17:42 Method Of Arrival: Ambulatory hb 17:42 Acuity: JULIANNE 4 hb Triage Assessment: 18:00 General: Appears uncomfortable, Behavior is calm, cooperative, appropriate for age. bp Pain: Complains of pain in right foot. EENT: No deficits noted. Neuro: No deficits noted. Cardiovascular: No deficits noted. Respiratory: No deficits noted. GI: No signs and/or symptoms were reported involving the gastrointestinal system. : No signs and/or symptoms were reported regarding the genitourinary system. Derm: No deficits noted. Musculoskeletal: Reports pain in right foot. Historical: - Allergies: 17:43 NKA; hb - PMHx: 17:43 blood clot in R leg; Headaches; Gout; hb - Immunization history:: Adult Immunizations up to date. - Social history:: Smoking status: Patient denies any tobacco usage or history of. Screenin:53 [facility] ED Fall Risk Assessment (Adult) History of falling in the last 3 months, bp including since admission No falls in past 3 months (0 pts). Abuse screen: Denies threats or abuse. Denies injuries from another. Nutritional screening: No deficits noted. Tuberculosis screening: No symptoms or risk factors identified. Assessment: 18:53 General: SEE TRIAGE NOTE. bp 19:00 General: Appears in no apparent distress. comfortable, well groomed, well developed, pf1 Behavior is calm, cooperative, appropriate for age, quiet. 19:00 Pain: Complains of pain in right foot Pain currently is 4 out of 10 on a pain scale. pf1 Neuro: No deficits noted. Level of Consciousness is awake, alert, obeys commands, Oriented to person, place, time, situation. Cardiovascular: No deficits noted. Respiratory: No deficits noted. Airway is patent Trachea midline Respiratory effort is even, unlabored, Respiratory pattern is regular, symmetrical. GI: No deficits noted. No signs and/or symptoms were reported involving the gastrointestinal system. : No deficits noted. No signs and/or symptoms were reported regarding the genitourinary system. EENT: No deficits noted. No signs and/or symptoms were reported regarding the EENT system. Derm: No deficits noted. No signs and/or symptoms reported regarding the dermatologic system. Musculoskeletal: Reports pain in right foot Pain is 4 out of 10 on a pain scale. Vital Signs: 17:42 BP 130 / 74; Pulse 89; Resp 16; Temp 98.2; Pulse Ox 98% on R/A; Weight 99.79 kg; Height hb 5 ft. 9 in. (175.26 cm); Pain 9/10; 18:52 BP 110 / 61; Pulse 69; Resp 16; Pulse Ox 97% ; bp 17:42 Body Mass Index 32.49 (99.79 kg, 175.26 cm) hb ED Course: 17:37 Patient arrived in ED. as 17:38 Rajiv Link PA is PHCP. [facility] 17:38 Jason Cifuentes MD is Attending Physician. [facility] 17:39 Curtis Aguilera, RN is Primary Nurse. bp 17:43 Triage completed. hb 17:43 Arm band placed on. hb 18:53 Patient has correct armband on for positive identification. Bed in low position. Call bp light in reach. Side rails up X2. 19:38 Curtis Estrada DPM is Referral Physician. [facility] 19:49 No provider procedures requiring assistance completed. Patient did not have IV access pf1 during this emergency room visit. Administered Medications: 18:15 Drug: Ketorolac 30 mg Route: IM; Site: left gluteus; bp 19:00 Follow up: Response: No adverse reaction; Marked relief of symptoms; Pain is decreased; pf1 RASS: Alert and Calm (0) 18:15 Drug: Decadron (dexamethasone) 10 mg Route: IM; Site: left gluteus; bp 19:00 Follow up: Response: No adverse reaction; Marked relief of symptoms; Pain is decreased; pf1 RASS: Alert and Calm (0) Medication: 18:53 VIS not applicable for this client. bp Outcome: 19:38 Discharge ordered by . manasa 19:49 Discharged to home ambulatory. pf1 19:49 Condition: improved 19:49 Discharge instructions given to patient, Instructed on discharge instructions, follow up and referral plans. Demonstrated understanding of instructions, follow-up care, medications, Prescriptions given X 2. 19:49 Patient left the ED. pf1 Signatures: Rajiv Link PA PA jmm Martinez, Amelia as Baxter, Heather, ALEX RN Curtis Aguilera, ALEX RN bp Janette ott, ALEX RN pf1
--- NOTE | 2022-03-06 19:39 | EDPHYS ---
Physician Documentation [facility] Name: Triston Ballard Age: 21 yrs Sex: Male : 2000 Arrival Date: 03/06/2022 Time: 17:37 Bed 16 Private MD: ED Physician Jason Cifuentes HPI: 03/06 17:48 This 21 yrs old Male presents to ER via Ambulatory with complaints of Foot jmm Pain. 17:48 The patient presents with pain. Onset: The symptoms/episode began/occurred gradually. jmm This is a 21-year-old male that presents emerged part with complaints of right foot pain which she attributes to a gout flare. Symptoms have worsened over the past 4 days. Patient states he is still taking allopurinol. Denies any fever or chills. Denies calf or upper leg swelling. Denies shortness of breath. Historical: - Allergies: 17:43 NKA; hb - PMHx: 17:43 blood clot in R leg; Headaches; Gout; hb - Immunization history:: Adult Immunizations up to date. - Social history:: Smoking status: Patient denies any tobacco usage or history of. ROS: 17:48 Constitutional: Negative for fever, chills, and weight loss, Cardiovascular: Negative jm for chest pain, palpitations, and edema, Respiratory: Negative for shortness of breath, cough, wheezing, and pleuritic chest pain. 17:48 MS/extremity: Positive for pain. 17:48 All other systems are negative. Exam: 17:48 Constitutional: This is a well developed, well nourished patient who is awake, alert, jmm and in no acute distress. Head/Face: atraumatic. Eyes: EOMI, no conjunctival erythema appreciated ENT: Moist Mucus Membranes Neck: Trachea midline, Supple Chest/axilla: Normal chest wall appearance and motion. Cardiovascular: Regular rate and rhythm. No edema appreciated Respiratory: Normal respirations, no respiratory distress appreciated Abdomen/GI: Non distended Back: Normal ROM Skin: General appearance color normal 17:48 Musculoskeletal/extremity: Pain patient on palpation of the right foot, full dorsalis pedis pulse, compartments are soft, neurovascular intact. 17:48 Skin: Appearance: Color: normal in color. 17:48 Neuro: Orientation: is normal, Mentation: is normal, Memory: is normal. 17:48 Psych: Behavior/mood is pleasant, cooperative. Vital Signs: 17:42 BP 130 / 74; Pulse 89; Resp 16; Temp 98.2; Pulse Ox 98% on R/A; Weight 99.79 kg; Height hb 5 ft. 9 in. (175.26 cm); Pain 9/10; 18:52 BP 110 / 61; Pulse 69; Resp 16; Pulse Ox 97% ; bp 17:42 Body Mass Index 32.49 (99.79 kg, 175.26 cm) hb MDM: 17:48 Patient medically screened. [facility] 19:22 Data reviewed: vital signs, nurses notes. Counseling: I had a detailed discussion with manasa the patient and/or guardian regarding: the historical points, exam findings, and any diagnostic results supporting the discharge/admit diagnosis, the need for outpatient follow up, to return to the emergency department if symptoms worsen or persist or if there are any questions or concerns that arise at home. 19:37 ED course: Patient is alert nontoxic in appearance in the ED. I do not currently navya suspect cellulitis. Patient will be put on a course of anti-inflammatories and steroids for further care. Advised to discontinue allopurinol.. Administered Medications: 18:15 Drug: Ketorolac 30 mg Route: IM; Site: left gluteus; bp 19:00 Follow up: Response: No adverse reaction; Marked relief of symptoms; Pain is decreased; pf1 RASS: Alert and Calm (0) 18:15 Drug: Decadron (dexamethasone) 10 mg Route: IM; Site: left gluteus; bp 19:00 Follow up: Response: No adverse reaction; Marked relief of symptoms; Pain is decreased; pf1 RASS: Alert and Calm (0) Disposition Summary: 03/06/22 19:38 Discharge Ordered Location: Home [facility] Condition: Stable [facility] Diagnosis - Gout, unspecified [facility] Followup: navya - With: Curtis Estrada DPM - When: 2 - 3 days - Reason: Recheck today's complaints, Continuance of care, Re-evaluation by your physician Discharge Instructions: - Discharge Summary Sheet [facility] - Gout [facility] - Low-Purine Eating Plan [facility] - Form - Excuse from Work, School, or Physical Activity pf1 Forms: - Medication Reconciliation Form jmm - Thank You Letter jmm - Antibiotic Education jmm - Prescription Opioid Use jmm - Family Work Release pf1 - Work release form vc1 Prescriptions: - Diclofenac Sodium 75 mg Oral Tablet Sustained Release - take 1 tablet by ORAL route 2 times per day; 30 tablet; Refills: 0, Product jmm Selection Permitted - Medrol (Eric) 4 mg Oral Tablets, Dose Pack - take 1 tablet by ORAL route as directed - follow package instructions; 1 jmm packet; Refills: 0, Product Selection Permitted Addendum: 03/09/2022 19:53 Co-signature as Attending Physician, Jason Cifuentes MD I reviewed the patient's care r n provided by the Advanced Practice Provider and agree with the diagnosis and treatment plan. Signatures: Rajiv Link PA PA jmm Nieto, Roman, MD MD rn Baxter, Heather, RN RN Curtis Beltran RN RN Janette alejo RN pf1 Corrections: (The following items were deleted from the chart) 03/06 19:35 17:48 This is a 21-year-old male that presents emerged part with complaints of right jmm foot pain which she attributes to a gout flare. Symptoms have worsened over the past week. Patient states he is still taking allopurinol. Denies any fever or chills. Denies calf or upper leg swelling. Denies shortness of breath. jmm
[2022-03-06 19:58] VITALS: TEMP 98.2
[2022-03-06 19:59] VITALS: BP 110/61; O2SAT 97
== END 2022-03-06 19:49 | disposition home or self-care (01) ==
LOC: ER 17:35
DX: M10.9 Gout, unspecified (principal)
CPT/HCPCS: 96372; 99283; J1100

== ENCOUNTER 2022-08-27 23:28 | Emergency (ER) | payer SELFPAY ==
--- OUTSIDE RECORDS SUMMARY | 2022-08-27 23:32 | XMS REPORT | Continuity of Care Document ---
:2000 Author Organization [facility] t Address [address] [place] [address] Care Team Providers Name Role Phone PCP, PATIENT DOES NOT HAVE A Primary Care Physician UnavailVIANEY Garg Attending Clinician Unavailable Vianey Suggs Attending Clinician Laura Sanders RN Attending Clinician Unavailable Ana Maria Zhang Attending Clinician Doctor Unassigned, [place] Attending Clinician Unavailable IRMA DSOUZA Attending Clinician [...] thrombosis thrombosis [place] [address] [place] [address] Obesity Obesity Disease Active 2017-02 Univers (BMI (BMI 2-09 ity of 30-39.9) 30-39.9) 00:00: [address] Allergies, Adverse Reactions, Alerts Allergy Allergy Status Severity Reaction(s) Onset Inactive Treating Comm ents Source Name Type Date Date Clinician NO KNOWN Drug Active Univers ALLERGIE Class ity of S [facility] Social History Social Habit Start Date Stop Date Quantity Comments Source History SDOH University o f Alcohol Frequency [place] [facility] History SDOH University o f Alcohol Std [place] [facility] Drinks [facility] History SDOH University o f Alcohol Binge [place] [facility] Exposure to Not sure University of SARS-CoV-2 [facility] (event) Branch History of Cigar Smoker University o f tobacco use [facility] Tobacco use and 2019-08-02 2019-08-02 Never used Universit y of exposure 00:00:00 00:00:00 [facility] Alcohol intake 2019-08-02 2019-08-02 Current drinker Unive rsity of 00:00:00 00:00:00 of alcohol [place] [facility] (finding) Branch Tobacco Comment 2018-02-04 2018-02-04 1 cigar a week Unive rsity of 00:00:00 00:00:00 for the past 1.5 [place] [facility] dical years [place] Alcohol Comment 2017-05-12 2017-05-12 socially Universit y of 00:00:00 00:00:00 [facility] Sex Assigned At [birth year] Universit y of 00:00:00 00:00:00 [facility] Smoking Status Start Date Stop Date Source Former smoker 2019-08-02 00:00:00 2019-08-02 00:00:00 Universi ty of [facility] Current some 2019-01-07 00:00:00 [facility] Medications Ordered Filled Start Stop Current Ordering [...] h tablet at 0230, KEMI colchicine Yes [id number] Take 2 U nivers 0.6 mg 1-08 [...] Medic al powder 17 g 08/04/19 at [facility] 2230, Routine melatonin 2019-0 2020- No 6mg 6 mg, Univer s (MELATIN) 08-04- Oral, ity of tablet 6 mg 02:41: 03:16 [place]CE[place] 1 [place] dose, [facility] 08/04/19 at Branch 2145, Routine acetaminoph 2020-0 Yes [id number] 1{tbl} Take 1 Univers en-codeine 6- 9107 tablet by ity of 300-30 mg 00:00: mouth [place] tablet 00 every 4 Medical (four) Branch hours as needed (foot pain). acetaminoph 2019-0 Yes [id number] 1{tbl} Take 1 Univers en-codeine 6- 9107 tablet by ity of 300-30 mg 00:00: mouth [place] tablet 00 every 4 Medical (four) Branch hours as needed (foot pain). acetaminoph 2019-0 Yes [id number] 1{tbl} Take 1 Univers en-codeine 6- 9107 tablet by ity of 300-30 mg 00:00: mouth [place] tablet 00 every 4 Medical (four) Branch hours as needed (foot pain). acetaminoph 2020-0 Yes [id number] 1{tbl} Take 1 Univers en-codeine 6-08 9107 tablet by ity of 300-30 mg 00:00: mouth [place] tablet 00 every 4 Medical (four) Branch hours as needed (foot pain). acetaminoph 2020-0 2021- No [id number] 1{tbl} Take 1 Univers en-codeine 6-08 -08 [...] Oral, ity of (TYLENOL 20:14: 23:45 Q4HPRN, [place] #3) 300-30 30 :01 Starting Medic al mg tablet 1 08/03/19 Br anch tablet at 1514, Until 08/04/19 at 1845, Routine, Pain (scale 4-6) morpHINE 2019-0 Yes 2mg 2 mg, Slow Uni vers injection 2 08-02 IV Push, ity of mg 05:57: [facility] [place] [facility] Starting Medical 08/03/19 Branch at 0057, Until Discontinu ed, Routine, Pain (scale 7-10) enoxaparin 2019-0 2020- No 1mg/kg 100 mg Un shantel (LOVENOX) 08-02- (rounded ity o f injection 01:45: 00:54 [place] 104.3 [place] 100 mg 00 :42 mg = 1 Medical mg/kg Branch ?104.3 kg), [facility], 1 dose, Mon08/02/19 at 204, [...] = 1 Medical mg/kg Branch ?104.3 kg), [facility], Q[facility], First dose on Mon08/02/19 at 2000, Until Discontinu ed, Routine iohexol 2019- 2020- No 120mL 120 mL, Unive rs (OMNIPAQUE 08-01 Intravenou it y of 350 23:16: 23:17 s, ONCE, 1 [place] BULK-150 00 :00 dose, Fri Medica l mL) 08/02/19 at Branch injection 1830, 120 mL Routine traMADol 50 2018-0 Yes [id number] 50mg Take 1 Univers mg tablet 10-08 [id number] tablet by ity of 00:00: mouth [place] 00 every 6 Medical (six) Branch hours as needed for Pain (scale 4-6). traMADol 50 2018- Yes [id number] 50mg Take 1 Univers mg tablet 8-12 [id number] tablet by ity of 00:00: mouth [place] 00 every 6 Medical (six) Branch hours as needed for Pain (scale 4-6). traMADol 50 2018- 2020- No [id number] 50mg Take 1 Univers mg tablet 8-12 06-08 [id number] tablet by it y of 00:00: 00:00 mouth [place] 00 :00 every 6 Medical (six) Branch hours as needed for Pain (scale 4-6). acetaminoph Yes [id number] 1{tbl} Take 1 Univers en-codeine 7-04 9107 tablet by ity of 300-30 mg 00:00: mouth [place] tablet 00 every 4 Medical (four) Branch hours as needed (foot pain). acetaminoph Yes [id number] 1{tbl} Take 1 Univers en-codeine 7-04 9107 tablet by ity of 300-30 mg 00:00: mouth [place] tablet 00 every 4 Medical (four) Branch hours as needed (foot pain). acetaminoph Yes [id number] 1{tbl} Take 1 Univers en-codeine 7-04 9107 tablet by ity of 300-30 mg 00:00: mouth [place] tablet 00 every 4 Medical (four) Branch hours as needed (foot pain). acetaminoph 2020- No [id number] 1{tbl} Take 1 Univers en-codeine 7-04 06-08 9107 tablet by ity of 300-30 mg 00:00: 00:00 mouth [place] tablet 00 :00 every 4 Medical (four) Branch hours as needed (foot pain). cyclobenzap Yes [id number] 10mg Take 1 Univers rine 10 mg 6-17 tablet by ity of tablet 00:00: mouth 3 [place] 00 (three) Medical times Branch daily. cyclobenzap 2019- No [id number] 10mg Take 1 Univers rine 10 mg 6-17 08-12 tablet by ity of tablet 00:00: 00:00 mouth 3 [place] 00 :00 (three) Medical times Branch daily. traMADOL 2018-0 Yes [id number] 50mg Take 1 Univers (ULTRAM) 50 3-24 9109 tablet by ity of mg tablet 00:00: mouth [place] 00 every 6 Medical (six) Branch hours as needed for Pain (scale 4-6). traMADOL 2019- No [id number] 50mg Take 1 Univers (ULTRAM) 50 3-24 [...] Immunizations Ordered Filled Immunization Date Status Comments [facility] Immunization Name Name Influenza Virus 2017-05-12 Completed Universit y of Vaccine [place] [facility] 3+ 00:00:00 [facility] Influenza Virus 2017-05-12 Completed Universit y of Vaccine [place] IM 3+ 00:00:00 [facility] Influenza Virus 2017-05-12 Completed Universit y of Vaccine [place] IM 3+ 00:00:00 [facility] Influenza Virus 2017-05-12 Completed Universit y of Vaccine [place] IM 3+ 00:00:00 [facility] Influenza Virus 2017-05-12 Completed Universit y of Vaccine [place] IM 3+ 00:00:00 [facility] Influenza Virus 2017-05-12 Completed Universit y of Vaccine [place] IM 3+ 00:00:00 [facility] Influenza Virus 2017-05-12 Completed Universit y of Vaccine [place] IM 3+ 00:00:00 [facility] Influenza Virus 2017-05-12 Completed Universit y of Vaccine [place] IM 3+ 00:00:00 [facility] Vital Signs Vital Name Observation Time Observation Value Comments Source Systolic blood 2021-03-06 07:31:00 132 mm[Hg] Univer sity of pressure [facility] Diastolic blood 2021-03-06 07:31:00 89 mm[Hg] Unive rsity of pressure [facility] Heart rate 2021-03-06 07:31:00 105 /min [facility] [place] [facility] Body temperature 2021-03-06 06:03:00 37.67 Jennie [facility] [place] [facility] Respiratory rate 2021-03-06 06:03:00 18 /min Univ ersity of [place] [facility] Body height 2021-03-06 06:03:00 170.2 cm Universi ty of [place] [facility] Body weight 2021-03-06 06:03:00 102.513 kg Universi ty of [place] [facility] BMI 2021-03-06 06:03:00 35.40 kg/m2 Universi ty of [place] [facility] Oxygen saturation in 2021-03-06 06:03:00 97 /min University of Arterial blood by [place] [facility]i cindi Pulse oximetry Branch Heart rate 2019-08-05 15:50:00 108 /min Universi ty of [place] [facility] Body temperature 2019-08-05 15:50:00 36.17 Jennie Univ ersity of [place] [facility] Respiratory rate 2019-08-05 15:50:00 18 /min Univ ersity of [place] [facility] Oxygen saturation in 2019-08-05 15:50:00 94 /min University of Arterial blood by [place] [facility]i cindi Pulse oximetry Branch Systolic blood 2019-08-05 15:50:00 124 mm[Hg] Univer sity of pressure [place] [facility] Diastolic blood 2019-08-05 15:50:00 80 mm[Hg] Unive rsity of pressure [place] [facility] Body weight 2019-08-05 09:13:00 102.468 kg Universi ty of [place] [facility] BMI 2019-08-05 09:13:00 38.78 kg/m2 Universi ty of [place] [facility] Body height 2019-08-02 20:57:00 162.6 cm Universi ty of [place] [facility] Systolic blood 2018-10-08 19:00:00 128 mm[Hg] Univer sity of pressure [place] [facility] Diastolic blood 2018-10-08 19:00:00 78 mm[Hg] Unive rsity of pressure [place] [facility] Heart rate 2018-10-08 19:00:00 109 /min Universi ty of [place] [facility] Respiratory rate 2018-10-08 19:00:00 20 /min Univ ersity of [place] [facility] Oxygen saturation in 2018-10-08 19:00:00 97 /min University of Arterial blood by [facility] cindi Pulse oximetry Branch Body temperature 2018-10-08 17:30:00 37.5 Jennie Univ ersity of [place] [facility] Body height 2018-10-08 17:30:00 165.1 cm Universi ty of [place] [facility] Body weight 2018-10-08 17:30:00 97.523 kg [facility] Medical [place] BMI 2018-10-08 17:30:00 35.78 kg/m2 [facility] Medical [place] Procedures Procedure Date / Time Performing Clinician Source Performed NOTICE OF PRIVACY 2021-03-06 05:54:45 Doctor Elly, [facility] PRACTICES [place] [facility] [place] CONSENT/REFUSAL FOR 2021-03-06 05:54:27 Doctor Elly [facility] DIAGNOSIS AND TREATMENT [place] [facility] MEDICATION CORRESPONDENCE 2019-08-06 05:01:00 Doctor Elly, [facility] [place] [facility] UNILATERAL VENOUS DUPLEX 2019-08-05 15:42:25 Donaldo Smith [facility] UPPER BY VASCULAR LAB Medical Br anch XR ELBOW <3 VW RIGHT 2019-08-04 15:40:55 Donaldo Smith [facility] BASIC METABOLIC PANEL 2019-08-03 08:41:00 Irma Dsouza [facility] (NA, K, CL, CO2, GLUCOSE, Medica l Branch BUN, CREATININE, CA) COVID-19 (ID NOW RAPID 2019-08-03 00:53:00 Katja Saez [facility] TESTING) Medical Branch EKG-12 LEAD 2019-08-03 00:39:18 Korin Yen [facility] CHEST PULMONARY 2019-08-02 23:25:53 Katja Saez [facility] ANGIOGRAM Medical Branch UNILATERAL VENOUS DUPLEX 2019-08-02 21:43:52 Katja Saez [facility] LOWER EXTREMITY BY Medical [facility] h VASCULAR LAB COMP. METABOLIC PANEL 2019-08-02 21:41:00 Katja Saez [facility] ([id number]) Medical Branch CBC WITH DIFFERENTIAL 2019-08-02 21:41:00 Katja Saez [facility] Medical [place] EKG-12 LEAD 2019-08-02 21:33:27 Katja Saez [place] o f [place] [facility] NOTICE OF PRIVACY 2019-08-02 21:24:25 Doctor Elly, [facility] PRACTICES [place] [facility] [place] CONSENT/REFUSAL FOR 2019-08-02 20:53:33 Doctor Ana Sanabria [facility] DIAGNOSIS AND TREATMENT [place] [facility] XR ELBOW <3 VW RIGHT 2018-10-08 18:45:13 Vianey Meyers [facility] [place] [facility] SHOULDER 2+ VW RIGHT 2018-10-08 18:45:13 Vianey Meyers [facility] [place] [facility] CONSENT/REFUSAL FOR 2018-10-08 17:13:21 Doctor Ana Sanabria [facility] DIAGNOSIS AND TREATMENT [place] [facility] Encounters Start End Encounter Admission Attending Care Care Encounter Source Date/Time Date/Time Type Type Clinicians Facility Department ID 2021-03-06 2021-03-06 Emergency X FELICIANO [facility] ERT [id number] Univers 00:29:00 01:37:00 [facility] 2021-03-06 2021-03-06 [facility] [id number] Univers 00:29:00 01:37:00 Vianey ROLLINS 350.1.13.10 i ty [place] [id number] [facility] 084 Branch 2020-08-29 2020-08-29 Nurse Laura Sanders [id number] Univers 00:00:00 00:00:00 Triage SEVEN 350.1.13.10 it y of HOSPITAL 4.2.7.2.686 Cj as [id number] [facility] 019 Branch 2019-08-07 2019-08-07 Transition Haydee Zhang 1.2.840.114 [id number] Univers 00:00:00 00:00:00 of Care Ana Maria Dinero 350.1.13.10 ity of [place] [id number] [facility] 403 Branch 2019-08-06 2019-08-06 Orders Doctor REYES [id number] Univers 00:00:00 00:00:00 Only Unassigned, SEVEN 350.1.13.10 ity of [place] [facility] 4.2.7.2.686 Cj as [id number] [facility] 009 Branch 2019-08-02 2019-08-05 Inpatient X LIANNA [facility] [id number] Univers 15:59:29 13:35:00 SHEBEY ity of [facility] 2019-08-02 2019-08-05 [facility] Katja Saez [facility] 1.2.840.1 [id number] Univers 15:59:29 13:35:00 Encounter Irma Dsouza 350.1.13.10 ity of [place] 4.2.7.2.686 [facility] [id number] [place] [address]851 Branch 2019-08-02 2019-08-02 Orders Doctor AMY 1.2.840.114 [id number] Univers 00:00:00 00:00:00 Only Unassigned, SEVEN 350.1.13.10 ity of [place] [facility] 4.2.7.2.686 Cj as [id number] [place] [address] Branch 2018-10-08 2018-10-08 Emergency [facility] [id number] Univers 12:31:39 14:41:00 Vianey Rollins 350.1.13.10 i ty of [place] 4.2.7.2.686 [facility] [id number] [place] [address]854 Branch 2018-10-08 2018-10-08 Orders Doctor AMY 1.2.840.114 [id number] Univers 00:00:00 00:00:00 Only Unassigned, SEVEN 350.1.13.10 ity of [place] H[facility]PITAL 4.2.7.2.686 Cj as [id number] [address] Results Test Description Test Time Test [...] Mild swelling is seen at the olecranon. [facility], Radiant Results Inft User - 08/04/2019 1:29 [...] Interpretation Comme nts NA (test code = 7452531804) 136 mmol/L 135-145 K (test code = 4942207499) 3.9 mmol/L 3.5-5 CL (test code = 1543937005) 104 mmol/L 98-108 CO2 TOTAL (test code = 0856631266) 26 mmol/L 23-31 AGAP (test code = 5474791755) 2-16 BUN (test code = 8658522623) 9 mg/dL 7-23 GLUCOSE (test code = 3537614948) 119 mg/dL 70-110 H CREATININE (test code = 0.66 mg/dL 0.6-1.25 1266378223) CALCIUM (test code = 7509059877) 9.8 mg/dL 8.6-10.6 eGFR Calculation (Non- mL/min/1.73m2 Malagasy) (test code = 7870008619) eGFR Calculation ( mL/min/1.73m2 [place]ag[place]) (test code = 0126913881) SARAH (test code = SARAH) Association of [...] tests). Lab Interpretation (test code = Abnormal 29549-5) [facility] NOW RAPID TESTING)2019-08-03 01:47:00 Test Item Value Reference Range Interpretation Comments SARS-CoV-2 Rapid ID NOW Not Detected Not Detected (test code = 60311-9) SARAH (test code = SARAH) ID NOW COVID-19 Assay is an isothermal nucleic acid amplification test intended for the qualitative detection of nucleic acid from SARS-CoV-2 viral RNA in nasopharyngeal (SHEET METAL WORK FURNACE INSTALLER) specimens. It is used under Emergency Use [...] indicated. Lab Interpretation Normal (test code = 32342-6) [facility]MONARY [id number] 23:52:46 1. ?No acute pulmonary embolism. 2. [...] reviewed this study and agree with theabove report.[facility]. METABOLIC PANEL (67542) 2019-08-02 22:39:00 Test Item Value Reference Range Interpretation Comments NA (test code = 138 mmol/L 135-145 6906142616) K (test code = 4.5 mmol/L 3.5-5 6657561255) CL (test code = 101 mmol/L 98-108 7211036824) CO2 TOTAL (test code = 29 mmol/L 23-31 8142036239) AGAP (test code = 2-16 9214745989) BUN (test code = 10 mg/dL 7-23 3818937706) GLUCOSE (test code = 103 mg/dL 70-110 5884931279) CREATININE (test code = 0.61 mg/dL 0.6-1.25 3788880093) TOTAL BILI (test code = 0.9 mg/dL 0.1-1.0 3589448627) CALCIUM (test code = 10.4 mg/dL 8.6-10.6 2676593778) T PROTEIN (test code = 8.9 g/dL 6.3-8.2 H 6682293743) ALBUMIN (test code = 5.0 g/dL 3.5-5 8858317534) ALK PHOS (test code = 84 U/L 34-122 2652049889) ALTv (test code = 185 U/L 5-50 H 1742-6) AST(SGOT) (test code = 71 U/L 13-40 H 8135004138) eGFR Calculation mL/min/1.73m2 (Non-) (test code = 7045702431) eGFR Calculation mL/min/1.73m2 () (test code = 0112876941) SARAH (test code = SARAH) Association of [...] tests). Lab Interpretation Abnormal (test code = 34362-2) [facility] WITH [id number] 21:53:00 Test Item Value Reference Range Interpretation Comments WBC (test code = See_Comment H [Automated 4917-2) message] The sy stem which generated this result transmitted reference range : 4.20 - 10.70 10*3/?L. The reference range was not used to interpret this result as normal/abnormal . RBC (test code = See_Comment [Automated 339-8) message] The sy stem which generated this [...] RDW-SD (test code = 41.3 fL 38.5-51.6 90400-0) RDW-CV (test code = 11.8 % 12.1-15.4 L 788-0) PLT (test code = See_Comment [Automated 777-3) message] The sy stem which generated this result transmitted reference range : 150 - 328 10*3/ ?L. The reference r lynn was not used to interpret this result as normal/abnormal . MPV (test code = 10.3 fL 9.8-13 38394-4) NRBC/100 WBC (test See_Comment [Automat ed code = 5064750459) message] The system which generated this result transmitted reference range : 0.0 - 10.0 /100 WBCs. The refer ence range was not u sed to interpret th is result as normal/abnormal . NRBC x10^3 (test code <0.01 See_Comment [Auto mated = 8166804464) message] The s ystem which generated this result transmitted reference range : 10*3/?L. The reference range was not used to interpret this result as normal/abnormal . GRAN MAT (NEUT) % 57.3 % (test code = 770-8) IMM GRAN % (test code 0.40 % = 1448379978) LYMPH % (test code = 30.2 % 736-9) MONO % (test code = 8.9 % 5905-5) EOS % (test code = 2.6 % 713-8) BASO % (test code = 0.6 % 706-2) GRAN MAT x10^3(ANC) 6.53 10*3/uL 1.99-6.95 (test code = 1693645765) IMM GRAN x10^3 (test 0.05 10*3/uL 0-0.06 code = 0999302479) LYMPH x10^3 (test code 3.45 10*3/uL 1.09-3.23 H = 731-0) MONO x10^3 (test code 1.02 10*3/uL 0.36-1.02 = 742-7) EOS x10^3 (test code = 0.30 10*3/uL 0.06-0.53 711-2) BASO x10^3 (test code 0.07 10*3/uL 0.01-0.09 = 704-7) Lab Interpretation Abnormal (test code = 18236-6) [facility]+ VW [id number] 18:50:46 No acute osseous abnormality. EXAM: XR [...] joint. No soft tissue abnormality is seen. [facility] Results Inft User - 10/08/2018 1:52 [...] soft tissue abnormality is seen.IMPRESSIONNo acute osseous abnormality.[facility] EL[facility]OW <3 VW [id number] 18:50:46 No acute osseous abnormality. EXAM: XR [...] joint. No soft tissue abnormality is seen. [facility] Results Inft User - 10/08/2018 1:52 [...] soft tissue abnormality is seen.IMPRESSIONNo acute osseous abnormality.[facility]"
[2022-08-28] MEDS ORDERED: CYCLOBENZAPRINE 10 MG TAB ONE (00:15)
[2022-08-28] MEDS ORDERED: PROMETHAZINE 25 MG TABLET ONE (00:15)
[2022-08-28] MEDS ORDERED: predniSONE 20 MG TAB ONE (00:16)
[2022-08-28] MEDS ORDERED: HYDROCODONE/APAP 10/325 TAB ONE (00:16)
[2022-08-28] MEDS ORDERED: IBUPROFEN 400 MG TAB ONE (00:16)
--- NOTE | 2022-08-28 01:37 | EDPHYS ---
Physician Documentation [facility] Name: Triston Ballard Age: 22 yrs Sex: Male : 2000 Arrival Date: 08/27/2022 Time: 23:28 Bed 10 Private MD: ED Physician Jorge Palacio HPI: 08/27 23:41 This 22 yrs old Male presents to ER via Unassigned with complaints of Wrist sp4 Pain. 08/28 01:30 22-year-old male presents with worsening right hand right wrist pain secondary to acute sp4 gouty arthritis.. 01:30 Patient's pain in the right wrist and the right hand has started yesterday on August 27, sp4 patient states he is out of his gout medications. Patient denied any medical allergies, patient reports history of right lower extremity DVT and headaches, denied any history of diabetes. Patient states there is moderate to severe pain right hand second and third metacarpophalangeal joints, right radiocarpal joint and also right fifth metacarpal phalangeal joint. . Historical: - Allergies: 08/27 23:50 NKA; as6 - PMHx: 23:50 blood clot in R leg; Gout; Headaches; as6 - PSHx: 23:50 None; as6 - Immunization history:: Client reports receiving the 2nd dose of the Covid vaccine. - Social history:: Smoking status: Patient reports the use of cigarette tobacco products, denies chronic smoking, but will smoke occasionally. - Family history:: not pertinent. ROS: 08/28 01:30 Constitutional: Negative for fever, chills, and weight loss, Eyes: Negative for injury, sp4 pain, redness, and discharge, ENT: Negative for injury, pain, and discharge, Neck: Negative for injury, pain, and swelling, Cardiovascular: Negative for chest pain, palpitations, and edema, Respiratory: Negative for shortness of breath, cough, wheezing, and pleuritic chest pain, Abdomen/GI: Negative for abdominal pain, nausea, vomiting, diarrhea, and constipation, Back: Negative for injury and pain, : Negative for injury, bleeding, discharge, and swelling, MS/Extremity: Positive for right hand and right wrist pain and swelling associated with acute gouty arthritis. Otherwise negative MS review of systems Skin: Negative for injury, rash, and discoloration, Neuro: Negative for headache, weakness, numbness, tingling, and seizure, Psych: Negative for depression, anxiety, Allergy/Immunology: Negative for hives, rash, and allergies Endocrine: Negative for neck swelling, polydipsia, polyuria, polyphagia, and weight changes Hematologic/Lymphatic: Negative for swollen nodes, abnormal bleeding, and unusual bruising Exam: 01:30 Constitutional: This is a well developed, well nourished patient who is awake, alert, sp4 and in no acute distress. Head/Face: Normocephalic, atraumatic. Eyes: Pupils equal round and reactive to light, extra-ocular motions intact. Lids and lashes normal. Conjunctiva and sclera are not injected. Cornea within normal limits. Periorbital areas with no swelling, redness, or edema. ENT: Nares patent. No nasal discharge, no septal abnormalities noted. Tympanic membranes are normal and external auditory canals are clear. Oropharynx with no redness, swelling, or masses, exudates, or evidence of obstruction, uvula midline. Mucous membranes moist. Neck: Trachea midline, no thyromegaly or masses palpated, and no cervical lymphadenopathy. Supple, full range of motion without nuchal rigidity, or vertebral point tenderness. Chest/axilla: Normal chest wall appearance and motion. Nontender with no deformity. No lesions are appreciated. Cardiovascular: Regular rate and rhythm with a normal S1 and S2. No gallops, murmurs, or rubs. Normal PMI, no JVD. No pulse deficits. Respiratory: Lungs have equal breath sounds bilaterally, clear to auscultation and percussion. No rales, rhonchi or wheezes noted. No increased work of breathing, no retractions or nasal flaring. Abdomen/GI: Soft, non-tender, with normal bowel sounds. No distension or tympany. No guarding or rebound. No evidence of tenderness throughout. Back: No spinal tenderness. No costovertebral tenderness. Skin: Warm, dry with normal turgor. Normal color with no rashes, no lesions, and no evidence of cellulitis. MS/ Extremity: Pulses equal, no cyanosis. Neurovascular intact. Right hand second and third metacarpophalangeal joint swelling pain tenderness and heat, right radiocarpal joint swelling tenderness and heat, consistent with acute inflammatory arthropathy. There is also right fifth metacarpophalangeal joint heat redness tenderness decreased range of motion. Neurovascular status of the extremity is intact. Neuro: Awake and alert, GCS 15, oriented to person, place, time, and situation. Cranial nerves II-XII grossly intact. Motor strength 5/5 in all extremities. Sensory grossly intact. Psych: Awake, alert, with orientation to person, place and time. Behavior, mood, and affect are within normal limits Vital Signs: 08/27 23:46 BP 128 / 94; Pulse 113; Resp 18 S; Temp 100.8(O); Pulse Ox 98% on R/A; Weight 89.81 kg as6 (R); Height 5 ft. 6 in. (R); Pain 10/10; 08/28 01:11 BP 133 / 70; Pulse 88; Resp 18 S; Pulse Ox 98% on R/A; Pain 5/10; as6 01:43 Temp 98.9(O); as6 08/27 23:46 Body Mass Index 31.96 (89.81 kg, 167.64 cm) as6 08/27 23:46 Pain Scale: Adult as6 08/28 01:11 Pain Scale: Adult as6 MDM: 08/27 23:54 Patient medically screened. sp4 08/28 01:30 Differential diagnosis: dislocation, closed fracture, contusion, abrasion, tendonitis. sp4 Data reviewed: vital signs, nurses notes, lab test result(s), finger stick glucose. Consideration of Admission/Observation Escalation of care including admission/observation considered. ED course: Pain has improved after p.o. medications and ER patient stable for discharge home. With prednisone 20 mg 2 tabs once a day for 5 days also some symptomatic medications.. 08/28 00:35 Order name: Glucose, Ancillary Testing; Complete Time: 01:19 EDMS 08/27 23:59 Order name: Accucheck Blood Glucose; Complete Time: 00:24 sp4 Administered Medications: 00:24 Drug: predniSONE PO 60 mg Route: PO; :44 Follow up: Response: No adverse reaction as 00:24 Drug: Ibuprofen PO 800 mg Route: PO; :44 Follow up: Response: No adverse reaction 00:24 Drug: [place] PO 10 mg-325 mg 1 tabs Route: PO; :44 Follow up: Response: No adverse reaction as6 00:24 Drug: Promethazine PO 25 mg Route: PO; 01:44 Follow up: Response: No adverse reaction as 00:24 Drug: Cyclobenzaprine PO 10 mg Route: PO; :44 Follow up: Response: No adverse reaction as6 Point of Care Testing: Blood Glucose: 00:24 Blood Glucose: 155 mg/dL; as6 Ranges: Critical Glucose Levels:Adult <50 mg/dl or >400 mg/dl <40 mg/dl or >180 mg/dl Disposition Summary: 08/28/22 01:36 Discharge Ordered Location: Home sp4 Problem: new sp4 Symptoms: have improved sp4 Condition: Stable sp4 Diagnosis - Gout, unspecified sp4 - Right hand and wrist gouty arthritis, acute gout flare sp4 Followup: sp4 - With: Private Physician - When: 5 - 6 days - Reason: Recheck today's complaints Discharge Instructions: - Discharge Summary Sheet sp4 - Gout, [id number] sp4 Forms: - [email or web address] sp4 Prescriptions: - Ibuprofen 800 mg Oral Tablet - take 1 tablet by ORAL route every 6 hours As needed take with food, PRN pain; sp4 30 tablet; Refills: 0, Product Selection Permitted - Tramadol 50 mg Oral Tablet - take 1 tablet by ORAL route every 8 hours as needed; 20 tablet; Refills: 0, sp4 Product Selection Permitted - Prednisone 20 mg Oral Tablet - take 2 tablets by ORAL route once daily for 5 days; 10 tablet; Refills: 0, sp4 Product Selection Permitted - promethazine 25 mg Oral Tablet - take 1 tablet by ORAL route every 6 hours As needed; 20 tablet; Refills: 0, sp4 Product Selection Permitted Signatures: Josue Olmos RN RN as6 Jorge Palacio MD MD sp4
--- NOTE | 2022-08-28 01:37 | ER ---
Nurse's Notes [facility] Name: Triston Ballard Age: 22 yrs Sex: Male : 2000 Arrival Date: 08/27/2022 Time: 23:28 Bed 10 Private MD: Diagnosis: Gout, unspecified;Right hand and wrist gouty arthritis, acute gout flare Presentation: 08/27 23:46 Chief complaint: Patient states: "I have gout and I think I'm having a flair up". as6 Coronavirus screen: At this time, the client does not indicate any symptoms associated with coronavirus-19. Ebola Screen: No symptoms or risks identified at this time. Initial Sepsis Screen: Does the patient meet any 2 criteria? No. Patient's initial sepsis screen is negative. Does the patient have a suspected source of infection? No. Patient's initial sepsis screen is negative. Risk Assessment: Do you want to hurt yourself or someone else? Patient reports no desire to harm self or others. Onset of symptoms was August 27, 2022. 23:46 Method Of Arrival: Ambulatory as6 23:46 Acuity: JULIANNE 3 as6 Triage Assessment: 08/28 00:00 General: Appears uncomfortable, Behavior is calm, cooperative. Pain: Complains of pain as6 in right hand. EENT: No deficits noted. No signs and/or symptoms were reported regarding the EENT system. Neuro: No deficits noted. Cardiovascular: No deficits noted. Respiratory: No deficits noted. GI: No deficits noted. No signs and/or symptoms were reported involving the gastrointestinal system. : No deficits noted. No signs and/or symptoms were reported regarding the genitourinary system. Derm: No deficits noted. No signs and/or symptoms reported regarding the dermatologic system. Musculoskeletal: Swelling present in right hand. Historical: - Allergies: 08/27 23:50 NKA; as6 - PMHx: 23:50 blood clot in R leg; Gout; Headaches; as6 - PSHx: 23:50 None; as6 - Immunization history:: Client reports receiving the 2nd dose of the Covid vaccine. - Social history:: Smoking status: Patient reports the use of cigarette tobacco products, denies chronic smoking, but will smoke occasionally. - Family history:: not pertinent. Screenin/02 00:58 [facility] ED Fall Risk Assessment (Adult) Score/Fall Risk Level 0 - 2 = Low Risk. Abuse as6 screen: Denies threats or abuse. Denies injuries from another. Nutritional screening: No deficits noted. Tuberculosis screening: No symptoms or risk factors identified. Assessment: 01:11 Reassessment: Patient appears in no apparent distress at this time. Patient and/or as6 family updated on plan of care and expected duration. Pain level reassessed. Patient is alert, oriented x 3, equal unlabored respirations, skin warm/dry/pink. Vital Signs: 08/27 23:46 BP 128 / 94; Pulse 113; Resp 18 S; Temp 100.8(O); Pulse Ox 98% on R/A; Weight 89.81 kg as6 (R); Height 5 ft. 6 in. (R); Pain 10/10; 08/28 01:11 BP 133 / 70; Pulse 88; Resp 18 S; Pulse Ox 98% on R/A; Pain 5/10; as6 01:43 Temp 98.9(O); as6 08/27 23:46 Body Mass Index 31.96 (89.81 kg, 167.64 cm) as6 08/27 23:46 Pain Scale: Adult as6 08/28 01:11 Pain Scale: Adult as6 ED Course: 08/27 23:33 Patient arrived in ED. ja2 23:41 Jorge Palacio MD is Attending Physician. sp4 23:50 Triage completed. as6 23:50 Arm band placed on. as6 08/28 00:02 Josue Olmos, ALEX is Primary Nurse. as6 00:59 Bed in low position. Call light in reach. as6 00:59 No provider procedures requiring assistance completed. as6 01:44 Patient did not have IV access during this emergency room visit. as6 Administered Medications: 00:24 Drug: predniSONE PO 60 mg Route: PO; :44 Follow up: Response: No adverse reaction as6 00:24 Drug: Ibuprofen PO 800 mg Route: PO; :44 Follow up: Response: No adverse reaction as6 00:24 Drug: [place] PO 10 mg-325 mg 1 tabs Route: PO; :44 Follow up: Response: No adverse reaction as6 00:24 Drug: Promethazine PO 25 mg Route: PO; as6 01:44 Follow up: Response: No adverse reaction as6 00:24 Drug: Cyclobenzaprine PO 10 mg Route: PO; as6 01:44 Follow up: Response: No adverse reaction as6 Medication: 00:59 VIS not applicable for this client. as6 Point of Care Testing: Blood Glucose: 00:24 Blood Glucose: 155 mg/dL; as6 Ranges: Outcome: 01:36 Discharge ordered by . sp4 01:43 Discharged to home ambulatory. as6 01:43 Condition: stable 01:43 Discharge instructions given to patient, Instructed on discharge instructions, follow up and referral plans. medication usage, Demonstrated understanding of instructions, follow-up care, medications, Prescriptions given X 4. 01:44 Patient left the ED. as6 Signatures: Giovana Villasenor Ashby, RN RN as6 Jorge Palacio MD MD sp4
[2022-08-28 01:49] VITALS: O2SAT 98
[2022-08-28 01:51] VITALS: BP 133/70; TEMP 98.9
== END 2022-08-28 01:44 | disposition home or self-care (01) ==
LOC: ER 23:28
DX: M10.9 Gout, unspecified (principal)
CPT/HCPCS: 82947; 99283; J7512; Q0169

== ENCOUNTER 2022-12-29 21:56 | Emergency (ER) | payer SELFPAY ==
--- OUTSIDE RECORDS SUMMARY | 2022-12-29 21:59 | XMS REPORT | Continuity of Care Document ---
:2000 Author Organization [facility] t Address [address] [facility] [address] [place] [address] Care Team Providers Name Role Phone PCP, PATIENT DOES NOT HAVE A Primary Care Physician UnavailVIANEY Garg Attending Clinician Unavailable Vianey Suggs Attending Clinician Laura Sanders RN Attending Clinician Unavailable Ana Maria Zhang Attending Clinician Doctor Unassigned, [place] Attending Clinician Unavailable IRMA DSOUZA Attending Clinician [...] thrombosis thrombosis [place] ) [address] [place] [address] Obesity Obesity Disease Active 2017-02 Univers (BMI (BMI 2-09 ity of 30-39.9) 30-39.9) 00:00: [address] Allergies, Adverse Reactions, Alerts Allergy Allergy Status Severity Reaction(s) Onset Inactive Treating Comm ents Source Name Type Date Date Clinician NO KNOWN Drug Active Univers ALLERGIE Class ity of S [facility] Social History Social Habit Start Date Stop Date Quantity Comments Source History SDOH University o f Alcohol Frequency [place] [facility] History SDOH University o f Alcohol Std [place] [facility] Drinks Branch History SDOH University o f Alcohol Binge [place] [facility] Exposure to Not sure University of SARS-CoV-2 [facility] (event) Branch History of Cigar Smoker University o f tobacco use [facility] Tobacco use and 2019-08-02 2019-08-02 Never used Universit y of exposure 00:00:00 00:00:00 [facility] Alcohol intake 2019-08-02 2019-08-02 Current drinker Unive rsity of 00:00:00 00:00:00 of alcohol [place] [facility] (finding) Branch Tobacco Comment 2018-02-04 2018-02-04 1 cigar a week Unive rsity of 00:00:00 00:00:00 for the past 1.5 [place] Me dical years [place] Alcohol Comment 2017-05-12 2017-05-12 socially Universit y of 00:00:00 00:00:00 [facility] Sex Assigned At [birth year] Universit y of 00:00:00 00:00:00 [facility] Smoking Status Start Date Stop Date Source Former smoker 2019-08-02 00:00:00 2019-08-02 00:00:00 Universi ty of [facility] Current some 2019-01-07 00:00:00 [facility] Medications Ordered Filled Start Stop Current [...] h tablet at 0230, KEMI colchicine Yes [id number] Take 2 U nivers 0.6 mg 1-08 [...] Medic al powder 17 g 08/04/19 at [facility] 2230, Routine melatonin 2019-0 2020- No 6mg 6 mg, Univer s (MELATIN) 08-04- Oral, ity of tablet 6 mg 02:41: 03:16 [place]CE[place] 1 [place] dose, [facility] 08/04/19 at Branch 2145, Routine acetaminoph 2020-0 Yes [id number] 1{tbl} Take 1 Univers en-codeine 6- 9107 tablet by ity of 300-30 mg 00:00: mouth [place] tablet 00 every 4 Medical (four) Branch hours as needed (foot pain). acetaminoph 2019-0 Yes [id number] 1{tbl} Take 1 Univers en-codeine 6- 9107 tablet by ity of 300-30 mg 00:00: mouth [place] tablet 00 every 4 Medical (four) Branch hours as needed (foot pain). acetaminoph 2019-0 Yes [id number] 1{tbl} Take 1 Univers en-codeine 6- 9107 tablet by ity of 300-30 mg 00:00: mouth [place] tablet 00 every 4 Medical (four) Branch hours as needed (foot pain). acetaminoph 2020-0 Yes [id number] 1{tbl} Take 1 Univers en-codeine 6-08 9107 tablet by ity of 300-30 mg 00:00: mouth [place] tablet 00 every 4 Medical (four) Branch hours as needed (foot pain). acetaminoph 2020-0 2021- No [id number] 1{tbl} Take 1 Univers en-codeine 6-08 -08 [...] Oral, ity of (TYLENOL 20:14: 23:45 Q4HPRN, [place] #3) 300-30 30 :01 Starting Medic al mg tablet 1 08/03/19 Br anch tablet at 1514, Until 08/04/19 at 1845, Routine, Pain (scale 4-6) morpHINE 2019-0 Yes 2mg 2 mg, Slow Uni vers injection 2 08-02 IV Push, ity of mg 05:57: [facility] [place] [facility] Starting Medical 08/03/19 Branch at 0057, Until Discontinu ed, Routine, Pain (scale 7-10) enoxaparin 2019-0 2020- No 1mg/kg 100 mg Un shantel (LOVENOX) 08-02- (rounded ity o f injection 01:45: 00:54 [place] 104.3 [place] 100 mg 00 :42 mg = 1 Medical mg/kg Branch ?104.3 kg), [facility], 1 dose, Mon08/02/19 at 204, [...] = 1 Medical mg/kg Branch ?104.3 kg), [facility], Q12H, First dose on Mon08/02/19 at 2000, Until Discontinu ed, Routine iohexol 2019- 2020- No 120mL 120 mL, Unive rs (OMNIPAQUE 08-01 Intravenou it y of 350 23:16: 23:17 s, ONCE, 1 [place] BULK-150 00 :00 dose, Fri Medica l mL) 08/02/19 at Branch injection 1830, 120 mL Routine traMADol 50 2018-0 Yes [id number] 50mg Take 1 Univers mg tablet 10-08 [id number] tablet by ity of 00:00: mouth [place] 00 every 6 Medical (six) Branch hours as needed for Pain (scale 4-6). traMADol 50 2018- Yes [id number] 50mg Take 1 Univers mg tablet 8-12 [id number] tablet by ity of 00:00: mouth [place] 00 every 6 Medical (six) Branch hours as needed for Pain (scale 4-6). traMADol 50 2018- 2020- No [id number] 50mg Take 1 Univers mg tablet 8-12 06-08 [id number] tablet by it y of 00:00: 00:00 mouth [place] 00 :00 every 6 Medical (six) Branch hours as needed for Pain (scale 4-6). acetaminoph Yes [id number] 1{tbl} Take 1 Univers en-codeine 7-04 9107 tablet by ity of 300-30 mg 00:00: mouth [place] tablet 00 every 4 Medical (four) Branch hours as needed (foot pain). acetaminoph Yes [id number] 1{tbl} Take 1 Univers en-codeine 7-04 9107 tablet by ity of 300-30 mg 00:00: mouth [place] tablet 00 every 4 Medical (four) Branch hours as needed (foot pain). acetaminoph Yes [id number] 1{tbl} Take 1 Univers en-codeine 7-04 9107 tablet by ity of 300-30 mg 00:00: mouth [place] tablet 00 every 4 Medical (four) Branch hours as needed (foot pain). acetaminoph 2020- No [id number] 1{tbl} Take 1 Univers en-codeine 7-04 06-08 9107 tablet by ity of 300-30 mg 00:00: 00:00 mouth [place] tablet 00 :00 every 4 Medical (four) Branch hours as needed (foot pain). cyclobenzap Yes [id number] 10mg Take 1 Univers rine 10 mg 6-17 tablet by ity of tablet 00:00: mouth 3 [place] 00 (three) Medical times Branch daily. cyclobenzap 2019- No [id number] 10mg Take 1 Univers rine 10 mg 6-17 08-12 tablet by ity of tablet 00:00: 00:00 mouth 3 [place] 00 :00 (three) Medical times Branch daily. traMADOL 2018-0 Yes [id number] 50mg Take 1 Univers (ULTRAM) 50 3-24 9109 tablet by ity of mg tablet 00:00: mouth [place] 00 every 6 Medical (six) Branch hours as needed for Pain (scale 4-6). traMADOL 2019- No [id number] 50mg Take 1 Univers (ULTRAM) 50 3-24 [...] 00 (two) Medical times Branch daily. apixaban 2017-02 Yes 10mg Take 2 Unive rs mg tablet 2-11 tablets by ity of 00:00: mouth 2 [place] 00 (two) Medical times Branch daily. apixaban 2017-02 Yes 10mg Take 2 Unive rs mg tablet 2-11 tablets by ity of 00:00: mouth 2 [place] 00 (two) Medical times Branch daily. apixaban 2017-02 2020- No 10mg Take 2 Univ ers mg tablet 2-11 06-08 tablets by ity of 00:00: 00:00 mouth 2 [place] 00 :00 (two) Medical times Branch daily. Vital Signs Vital Name Observation Time Observation Value Comments Source Systolic blood 2021-03-06 07:31:00 132 mm[Hg] Univer sity of pressure [facility] Diastolic blood 2021-03-06 07:31:00 89 mm[Hg] Unive [facility] [place] Heart rate 2021-03-06 07:31:00 105 /min [facility] Body temperature 2021-03-06 06:03:00 37.67 Jennie [facility] Res[facility] rate 2021-03-06 06:03:00 18 /min [facility] Body height 2021-03-06 06:03:00 170.2 cm [facility] Body weight 2021-03-06 06:03:00 102.513 kg [facility] BMI 2021-03-06 06:03:00 35.40 kg/m2 [facility] Oxygen saturation in 2021-03-06 06:03:00 97 /min University of Arterial blood by [facility] Pulse oximetry Branch Heart rate 2019-08-05 15:50:00 108 /min [facility] Body temperature 2019-08-05 15:50:00 36.17 Jennie [facility] ersity [facility] Respiratory rate 2019-08-05 15:50:00 18 /min [facility] Oxygen saturation in 2019-08-05 15:50:00 94 /min University of Arterial blood by [facility] Pulse oximetry Branch Systolic blood 2019-08-05 15:50:00 124 mm[Hg] Univer sity of [facility] Diastolic blood 2019-08-05 15:50:00 80 mm[Hg] Unive rsity [facility] Body weight 2019-08-05 09:13:00 102.468 kg [facility] [place] [facility] BMI 2019-08-05 09:13:00 38.78 kg/m2 [facility] Body height 2019-08-02 20:57:00 162.6 cm [facility] Systolic blood 2018-10-08 19:00:00 128 mm[Hg] Univer sity of [facility] Diastolic blood 2018-10-08 19:00:00 78 mm[facility]Hg] [facility] rate 2018-10-08 19:00:00 109 /min [facility] Respiratory rate 2018-10-08 19:00:00 20 /min [facility] Oxygen saturation in 2018-10-08 19:00:00 97 /min [facility] Arterial blood by [facility] Pulse oximetry Branch Body temperature 2018-10-08 17:30:00 37.5 Jennie [facility] Body height 2018-10-08 17:30:00 165.1 cm [facility] Body weight 2018-10-08 17:30:00 97.523 kg [facility] BMI 2018-10-08 17:30:00 35.78 kg/m2 [facility] Procedures Procedure Date / Time Performing Clinician Source Performed NOTICE OF PRIVACY 2021-03-06 05:54:45 Doctor Unassigned, [facility] PRACTICES [place] [facility] CONSENT/REFUSAL FOR 2021-03-06 05:54:27 Doctor Unassigned, [facility] DIAGNOSIS AND TREATMENT [place] [facility] [place] MEDICATION CORRESPONDENCE 2019-08-06 05:01:00 Doctor Elly, [facility] [place] [facility] UNILATERAL VENOUS DUPLEX 2019-08-05 15:42:25 Donaldo Smith [facility] UPPER BY VASCULAR LAB Medical Br anch XR ELBOW <3 VW RIGHT 2019-08-04 15:40:55 Donaldo Smith [facility] BASIC METABOLIC PANEL 2019-08-03 08:41:00 Irma Dsouza [facility] (NA, K, CL, CO2, GLUCOSE, Medica l Branch BUN, CREATININE, CA) COVID-19 (ID NOW RAPID 2019-08-03 00:53:00 Katja Saez [facility] TESTING) Medical Branch EKG-12 LEAD 2019-08-03 00:39:18 Korin Yen [facility] CHEST PULMONARY 2019-08-02 23:25:53 Katja Saez [facility] ANGIOGRAM Medical Branch UNILATERAL VENOUS DUPLEX 2019-08-02 21:43:52 Katja Saez [facility] LOWER EXTREMITY BY Medical [facility] h VASCULAR LAB COMP. METABOLIC PANEL 2019-08-02 21:41:00 Katja Saez [facility] ([id number]) [facility] CBC WITH DIFFERENTIAL 2019-08-02 21:41:00 Katja Saez [facility] EKG-12 LEAD 2019-08-02 21:33:27 Katja Saez [facility] NOTICE OF PRIVACY 2019-08-02 21:24:25 Doctor Elly, [facility] PRACTICES [place] [facility] CONSENT/REFUSAL FOR 2019-08-02 20:53:33 Doctor Elly [facility] DIAGNOSIS AND TREATMENT [place] [facility] XR ELBOW <3 VW RIGHT 2018-10-08 18:45:13 Vianey Wiggins [facility] XR SHOULDER 2+ VW RIGHT 2018-10-08 18:45:13 Vianey Wiggins [facility] CONSENT/REFUSAL FOR 2018-10-08 17:13:21 Doctor [facility] DIAGNOSIS AND TREATMENT [place] [facility] [place] Encounters Start End Encounter Admission Attending Care Care Encounter Source Date/Time Date/Time Type Type Clinicians Facility Department ID 2021-03-06 2021-03-06 Emergency X ZEKE WIGGINS ERT [id number] Univers 00:29:00 01:37:00 [facility] 2021-03-06 2021-03-06 Emergency ZEKE Wiggins [id number] Univers 00:29:00 01:37:00 Vianey ROLLINS 350.1.13.10 i [place] [id number] [facility] 084 Branch 2020-08-29 2020-08-29 Nurse Laura Sanders [id number] Univers 00:00:00 00:00:00 Triage SEVEN 350.1.13.10 it y of HOSPITAL 4.2.7.2.686 Cj as [id number] [facility] 019 Branch 2019-08-07 2019-08-07 Transition Haydee Zhang [id number] Univers 00:00:00 00:00:00 of Care Ana Maria Dinero 350.1.13.10 ity of [place] 4[place]7.2.686 [place] [id number] [facility] 403 Branch 2019-08-06 2019-08-06 Orders Doctor REYES [id number] Univers 00:00:00 00:00:00 Only Unassigned, SEVEN 350.1.13.10 ity of [place] [facility] 4.2.7.2.686 Cj as [id number] [facility] 009 Branch 2019-08-02 2019-08-05 Inpatient X LIANNA [facility] KASANDRA [id number] Univers 15:59:29 13:35:00 SHEBEY ity of [facility] 2019-08-02 2019-08-05 [facility] Katja Saez [facility] 1.2.840.1 [id number] Univers 15:59:29 13:35:00 Encounter Irma Dsouza 350.1.13.10 ity of [place] [id number] [facility] 081 Branch 2019-08-02 2019-08-02 Orders Doctor REYES [id number] Univers 00:00:00 00:00:00 Only Unassigned, SEVEN 350.1.13.10 ity of [place] [facility] 4.2.7.2.686 Cj as [id number] [facility] 009 Branch 2018-10-08 2018-10-08 Emergency Luigi [facility] [id number] Univers 12:31:39 14:41:00 Vianey Rollins 350.1.13.10 i ty [place]2.[place] [id number] [facility] 084 Branch 2018-10-08 2018-10-08 Orders Doctor AMY 1.2.840.114 [id number] Univers 00:00:00 00:00:00 Only Unassigned, SEVEN 350.1.13.10 ity of [place] [facility] 4.2.7.2.686 Cj [id number] [facility] 009 Branch Results Test Description Test Time Test Comments Results Result Sourc e Comments XR ELBOW <3 VW Questionable Univers ity of RIGHT [facility]55 lymphadenopathy. No Branc h acute bony [...] Mild swelling is seen at the olecranon. [facility], Radiant Results Inft User - 08/04/2019 1:29 [...] Interpretation Comme nts NA (test code = 4390616066) 136 mmol/L 135-145 K (test code = 9761814869) 3.9 mmol/L 3.5-5 CL (test code = 6853153349) 104 mmol/L 98-108 CO2 TOTAL (test code = 0953955054) 26 mmol/L 23-31 AGAP (test code = 7200746927) 2-16 BUN (test code = 3540308112) 9 mg/dL 7-23 GLUCOSE (test code = 4263052548) 119 mg/dL 70-110 H CREATININE (test code = 0.66 mg/dL 0.6-1.25 8544521200) CALCIUM (test code = 9289983683) 9.8 mg/dL 8.6-10.6 eGFR Calculation (Non- mL/min/1.73m2 [place]) (test code = 2954273955) eGFR Calculation ( mL/min/1.73m2 [place]) (test code = 8658550041) SARAH (test code = SARAH) Association of [...] tests). Lab Interpretation (test code = Abnormal 59842-5) [facility] NOW [facility]APID TESTING)2019-08-03 01:47:00 Test Item Value Reference Range Interpretation Comments SARS-CoV-2 Rapid ID NOW Not Detected Not Detected (test code = 27445-3) SARAH (test code = SARAH) ID NOW COVID-19 Assay is an isothermal nucleic acid amplification test intended for the qualitative detection of nucleic acid from SARS-CoV-2 viral RNA in nasopharyngeal (MACHINE OVERHAULER) specimens. It is used under Emergency Use [...] indicated. Lab Interpretation Normal (test code = 89911-8) [facility] CHEST PULMONARY [id number] 23:52:46 1. ?No acute pulmonary embolism. 2. [...] reviewed this study and agree with theabove report.[facility]. METABOLIC PANEL (12332) 2019-08-02 22:39:00 Test Item Value Reference Range Interpretation Comments NA (test code = 138 mmol/L 135-145 3603525264) K (test code = 4.5 mmol/L 3.5-5 0344125986) CL (test code = 101 mmol/L 98-108 8151845014) CO2 TOTAL (test code = 29 mmol/L 23-31 0790337730) AGAP (test code = 2-16 4932431109) BUN (test code = 10 mg/dL 7-23 9426781359) GLUCOSE (test code = 103 mg/dL 70-110 1834764362) CREATININE (test code = 0.61 mg/dL 0.6-1.25 5431790728) TOTAL BILI (test code = 0.9 mg/dL 0.1-1.8 0854640784) CALCIUM (test code = 10.4 mg/dL 8.6-10.6 7909764861) T PROTEIN (test code = 8.9 g/dL 6.3-8.2 H 4135688594) ALBUMIN (test code = 5.0 g/dL 3.5-5 8527261561) ALK PHOS (test code = 84 U/L 34-122 5060782157) ALTv (test code = 185 U/L 5-50 H 1742-6) AST(SGOT) (test code = 71 U/L 13-40 H 1703602213) eGFR Calculation mL/min/1.73m2 (Non-) (test code = 3954872076) eGFR Calculation mL/min/1.73m2 () (test code = 4596595290) SARAH (test code = SARAH) Association of [...] tests). Lab Interpretation Abnormal (test code = 74293-7) [facility] WITH [id number] 21:53:00 Test Item Value Reference Range Interpretation Comments WBC (test code = See_Comment H [Automated 0690-2) message] The sy stem which generated this result transmitted reference range : 4.20 - 10.70 10*3/?L. The reference range was not used to interpret this result as normal/abnormal . RBC (test code = See_Comment [Automated 789-8) message] The sy stem which generated this [...] RDW-SD (test code = 41.3 fL 38.5-51.6 49411-0) RDW-CV (test code = 11.8 % 12.1-15.4 L 788-0) PLT (test code = See_Comment [Automated 777-3) message] The sy stem which generated this result transmitted reference range : 150 - 328 10*3/ ?L. The reference r lynn was not used to interpret this result as normal/abnormal . MPV (test code = 10.3 fL 9.8-13 66864-6) NRBC/100 WBC (test See_Comment [Automat ed code = 5908783703) message] The system which generated this result transmitted reference range : 0.0 - 10.0 /100 WBCs. The refer ence range was not u sed to interpret th is result as normal/abnormal . NRBC x10^3 (test code <0.01 See_Comment [Auto mated = 3747881272) message] The s ystem which generated this result transmitted reference range : 10*3/?L. The reference range was not used to interpret this result as normal/abnormal . GRAN MAT (NEUT) % 57.3 % (test code = 770-8) IMM GRAN % (test code 0.40 % = 0307603215) LYMPH % (test code = 30.2 % 736-9) MONO % (test code = 8.9 % 5905-5) EOS % (test code = 2.6 % 713-8) BASO % (test code = 0.6 % 706-2) GRAN MAT x10^3(ANC) 6.53 10*3/uL 1.99-6.95 (test code = 1429528687) IMM GRAN x10^3 (test 0.05 10*3/uL 0-0.06 code = 8206865475) LYMPH x10^3 (test code 3.45 10*3/uL 1.09-3.23 H = 731-0) MONO x10^3 (test code 1.02 10*3/uL 0.36-1.02 = 742-7) EOS x10^3 (test code = 0.30 10*3/uL 0.06-0.53 711-2) BASO x10^3 (test code 0.07 10*3/uL 0.01-0.09 = 704-7) Lab Interpretation Abnormal (test code = 76367-9) [facility]+ VW [id number] 18:50:46 No acute osseous abnormality. EXAM: XR [...] joint. No soft tissue abnormality is seen. [facility] [[email or web address]], Radiant Results Inft User - 10/08/2018 1:52 [...] soft tissue abnormality is seen.IMPRESSIONNo acute osseous abnormality.[facility] ELBOW <3 VW [id number] 18:50:46 No acute osseous abnormality. EXAM: XR [...] joint. No soft tissue abnormality is seen. [facility] [[email or web address]], [facility] - 10/08/2018 1:52 PM CDTEXAM: XR [...] soft tissue abnormality is seen.IMPRESSIONNo acute osseous abnormality.[facility]"
[2022-12-29] MEDS ORDERED: NA CHLORIDE 0.9% 1,000 ML ONE (22:57)
[2022-12-29] MEDS ORDERED: dexAMETHasone 10 MG/ML VIAL ONE (22:57)
[2022-12-29] MEDS ORDERED: ONDANSETRON 4 MG/2 ML VIAL ONE (22:57)
[2022-12-29] MEDS ORDERED: MORPHINE 4 MG/ML SYR ONE (22:57)
[2022-12-29] MEDS ORDERED: KETOROLAC 30 MG/ML INJ ONE (22:57)
[2022-12-29] MEDS ORDERED: COLCHICINE 0.6 MG TAB ONE ×2 (22:58→23:56)
[2022-12-29 23:22] LABS: Absolute Lymphocytes (CBC) 3.1 K/uL (0.7-4.9); Hematocrit 44.8 % (39.6-49.0); Lymphocytes % 25.4 % (15.3-44.8); MCV 94.2 fL (80-100); Platelets 240 thou/uL (152-406); RBC Red Blood Cell Count 4.76 M/uL (4.33-5.43)
[2022-12-29 23:45] LABS: Albumin 3.6 g/dL (3.4-5.0); Bilirubin Total 0.5 mg/dL (0.2-1.0); Potassium 3.9 mEq/L (3.5-5.1); Protein, Total 7.7 g/dL (6.4-8.2); Uric Acid 9.7 mg/dL (3.5-7.2)
--- NOTE | 2022-12-30 00:13 | ER ---
Nurse's Notes [facility] Name: Triston Ballard Age: 22 yrs Sex: Male : 2000 Arrival Date: 12/29/2022 Time: 21:56 Bed 14 Private MD: Diagnosis: Gout, unspecified;Pain in right hand Presentation: 12/29 22:08 Chief complaint: Patient states: "I'm pretty sure my gout is flaring up. I'm out of the as6 medication I usually take that makes it feel better". Coronavirus screen: At this time, the client does not indicate any symptoms associated with coronavirus-19. Ebola Screen: No symptoms or risks identified at this time. Initial Sepsis Screen: Does the patient meet any 2 criteria? No. Patient's initial sepsis screen is negative. Does the patient have a suspected source of infection? No. Patient's initial sepsis screen is negative. Risk Assessment: Do you want to hurt yourself or someone else? Patient reports no desire to harm self or others. Onset of symptoms was December 27, 2022. 22:08 Acuity: JULIANNE 4 as6 22:08 Method Of Arrival: Ambulatory as6 Triage Assessment: 22:30 General: Appears in no apparent distress. uncomfortable, Behavior is calm, cooperative, jw7 appropriate for age. Pain: Complains of pain in left hand Pain does not radiate. Pain currently is 8 out of 10 on a pain scale. Quality of pain is described as crampy, sharp, shooting, throbbing, Pain began 1 day ago. Is intermittent, Alleviated by medications, rest, Aggravated by increased activity, Noted to be quiet/stoic, resistant to movement. EENT: No deficits noted. No signs and/or symptoms were reported regarding the EENT system. Neuro: Olivera Agitation-Sedation Scale (RASS): 0 - Alert and Calm Level of Consciousness is awake, alert, obeys commands, Oriented to person, place, time, situation. Cardiovascular: No deficits noted. Respiratory: No deficits noted. GI: No deficits noted. : No deficits noted. Derm: Skin is intact, is healthy with good turgor, Skin is dry, Skin is normal, Skin temperature is warm redness and edema to left hand Reports pain. Musculoskeletal: Circulation, motion, and sensation intact. Range of motion: intact in all extremities. Historical: - Allergies: 22:08 NKA; as6 - PMHx: 22:08 blood clot in R leg; Gout; Headaches; as6 - PSHx: 22:08 None; as6 - Immunization history:: Adult Immunizations up to date. - Social history:: Smoking status: Patient reports the use of cigarette tobacco products, denies chronic smoking, but will smoke occasionally. Screenin:30 [facility] ED Fall Risk Assessment (Adult) History of falling in the last 3 months, jw7 including since admission No falls in past 3 months (0 pts) Score/Fall Risk Level 0 - 2 = Low Risk Oriented to surroundings, Maintained a safe environment. Abuse screen: Denies threats or abuse. Denies injuries from another. Nutritional screening: No deficits noted. Tuberculosis screening: No symptoms or risk factors identified. Assessment: 22:35 General: see triage assessment . jw7 23:30 Reassessment: Patient appears in no apparent distress at this time. No changes from [facility] previously documented assessment. Patient and/or family updated on plan of care and expected duration. Pain level reassessed. Patient is alert, oriented x 3, equal unlabored respirations, skin warm/dry/pink. 12/30 00:30 Reassessment: Patient appears in no apparent distress at this time. Patient and/or jw7 family updated on plan of care and expected duration. Pain level reassessed. Patient is alert, oriented x 3, equal unlabored respirations, skin warm/dry/pink. Patient states feeling better. Patient states symptoms have improved. Vital Signs: 12/29 22:07 BP 126 / 75; Pulse 93; Resp 18 S; Temp 98.2(TE); Pulse Ox 99% on R/A; Weight 97.52 kg as6 (R); Height 5 ft. 5 in. (R); Pain 8/10; 23:00 BP 115 / 99; Pulse 64; Resp 17 S; Pulse Ox 95% on R/A; jw7 12/30 00:00 BP 108 / 66; Pulse 76; Resp 16 S; Pulse Ox 96% on R/A; jw7 00:43 BP 115 / 71; Pulse 70; Resp 16 S; Pulse Ox 96% on R/A; jw7 12/29 22:07 Body Mass Index 35.78 (97.52 kg, 165.1 cm) as6 12/29 22:07 Pain Scale: Adult as6 ED Course: 12/29 21:59 Patient arrived in ED. ag3 22:00 Shawn Sheehan MD is Attending Physician. britton 22:04 Tara Vega, ALEX is Primary Nurse. jw7 22:07 Arm band placed on. as6 22:11 Triage completed. as6 22:30 Patient has correct armband on for positive identification. Bed in low position. Call jw7 light in reach. Side rails up X2. 23:50 Hand Left 3 View In Process Unspecified. EDMS 12/30 00:13 Prince Sprague MD is Referral Physician. [facility] 00:43 Provided Education on: discharge instructions and medication usage. jw7 00:43 No provider procedures requiring assistance completed. jw7 00:44 IV discontinued, intact, bleeding controlled, No redness/swelling at site. Pressure jw7 dressing applied. Administered Medications: 12/29 23:08 Drug: NS 0.9% IV 1000 ml IV at 1 bolus Per protocol; 1000 mL bolus Route: IV; Rate: 1 jw7 bolus; Site: right antecubital; 12/30 00:34 Follow up: Response: No adverse reaction; IV Status: Completed infusion; IV Intake: jw7 1000ml 12/29 23:08 Drug: Ketorolac IVP 15 mg IVP once Route: IVP; Site: right antecubital; jw7 12/30 00:34 Follow up: Response: No adverse reaction; Marked relief of symptoms 7 12/29 23:08 Drug: morphine IVP or IV 4 mg IVP once over 4 mins Route: IVP; Infused Over: 4 mins; jw7 Site: right antecubital; 12/30 00:35 Follow up: Response: No adverse reaction; Marked relief of symptoms [facility] 12/29 23:08 Drug: Ondansetron IVP 4 mg IVP once; over 2 minutes Route: IVP; Site: right antecubital;7 12/30 00:35 Follow up: Response: No adverse reaction 7 12/29 23:08 Drug: Colcrys PO 1.2 mg PO once Route: PO; jw7 12/30 00:35 Follow up: Response: No adverse reaction [facility] 12/29 23:08 Drug: Decadron - Dexamethasone IVP 10 mg IVP once Route: IVP; Site: right antecubital; jw7 12/30 00:35 Follow up: Response: No adverse reaction jw7 12/29 23:45 Drug: Colcrys PO 0.6 mg PO once; give 1 hour after the 1.2 mg dose Route: PO; jw7 12/30 00:35 Follow up: Response: No adverse reaction jw7 Medication: 00:43 VIS not applicable for this client. jw7 Intake: 00:34 IV: 1000ml; Total: 1000ml. jw7 Outcome: 00:13 Discharge ordered by . britton 00:44 Discharged to home ambulatory, jw7 00:44 Condition: stable 00:44 Discharge instructions given to patient, Instructed on discharge instructions, follow up and referral plans. medication usage, Demonstrated understanding of instructions, follow-up care, medications, Prescriptions given X 4, 00:51 Patient left the ED. jw7 Signatures: Dispatcher [employer] EDMS Shawn Sheehan MD MD cha Gomez, Alice ag3 Josue Olmos RN RN as6 Tara Vega RN RN jw7 Corrections: (The following items were deleted from the chart) :12/29 23:30 General: Appears in no apparent distress. uncomfortable, Behavior is calm, jw7 cooperative, appropriate for age, jw7 12/31 99:12/29 23:30 Pain: Complains of pain in left hand Pain does not radiate. Pain currently jw7 is 8 out of 10 on a pain scale. Quality of pain is described as crampy, sharp, shooting, throbbing, Pain began 1 day ago. Is intermittent, Alleviated by medications, rest, Aggravated by increased activity, Noted to be quiet/stoic, resistant to movement, jw7 12/31 99:12/29 23:30 EENT: No deficits noted. No signs and/or symptoms were reported regarding jw7 the EENT system. 7 12/31 99:12/29 23:30 Neuro: Olivera Agitation-Sedation Scale (RASS): 0 - Alert and Calm Level jw7 of Consciousness is awake, alert, obeys commands, Oriented to person, place, time, situation, jw7 12/31 99:12/29 23:30 Cardiovascular: No deficits noted. jw7 jw7 12/31 99:12/29 23:30 Respiratory: No deficits noted. jw7 7 12/31 99:12/29 23:30 GI: No deficits noted. jw7 7 12/30 23:30 : No deficits noted. jw7 7 12/30 23:30 Derm: Skin is intact, is healthy with good turgor, Skin is dry, Skin is jw7 normal, Skin temperature is warm redness and edema to left hand Reports pain 7 12/31 99:12/29 23:30 Musculoskeletal: Circulation, motion, and sensation intact. Range of jw7 motion: intact in all extremities, jw7
--- NOTE | 2022-12-30 00:13 | EDPHYS ---
Physician Documentation [facility] Name: Triston Ballard Age: 22 yrs Sex: Male : 2000 Arrival Date: 12/29/2022 Time: 21:56 Bed 14 Private MD: ED Physician Shawn Sheehan HPI: 12/29 22:29 This 22 yrs old Male presents to ER via Ambulatory with complaints of Hand britton Swelling. 22:29 The patient or guardian reports decreased range of motion, pain, swelling, tenderness. britton The complaints affect the MCP of left index finger. Context: The problem was sustained at an unknown location, resulted from an unknown cause. Onset: The symptoms/episode began/occurred 2 day(s) ago. Modifying factors: The symptoms are alleviated by holding still, ice/coldpack to affected area, the symptoms are aggravated by movement, dependent position. Associated signs and symptoms: The patient has no apparent associated signs or symptoms. Severity of symptoms: At their worst the symptoms were moderate, severe, in the emergency department the symptoms are unchanged. The patient has experienced similar episodes in the past, a few times. Historical: - Allergies: 22:08 NKA; as6 - PMHx: 22:08 blood clot in R leg; Gout; Headaches; as6 - PSHx: 22:08 None; as6 - Immunization history:: Adult Immunizations up to date. - Social history:: Smoking status: Patient reports the use of cigarette tobacco products, denies chronic smoking, but will smoke occasionally. ROS: 22:30 Constitutional: Negative for fever, chills, and weight loss, Eyes: Negative for injury, britton pain, redness, and discharge, ENT: Negative for injury, pain, and discharge, Neck: Negative for injury, pain, and swelling, Cardiovascular: Negative for chest pain, palpitations, and edema, Respiratory: Negative for shortness of breath, cough, wheezing, and pleuritic chest pain, Abdomen/GI: Negative for abdominal pain, nausea, vomiting, diarrhea, and constipation, Back: Negative for injury and pain, : Negative for injury, bleeding, discharge, and swelling, Skin: Negative for injury, rash, and discoloration, Neuro: Negative for headache, weakness, numbness, tingling, and seizure, Psych: Negative for depression, anxiety, suicide ideation, homicidal ideation, and hallucinations, Allergy/Immunology: Negative for hives, rash, and allergies, Endocrine: Negative for neck swelling, polydipsia, polyuria, polyphagia, and marked weight changes, Hematologic/Lymphatic: Negative for swollen nodes, abnormal bleeding, and unusual bruising, 22:30 MS/extremity: Positive for injury or acute deformity, contusion, decreased range of motion, pain, swelling, tenderness, Exam: 22:30 Constitutional: This is a well developed, well nourished patient who is awake, alert, britton and in no acute distress. Head/Face: Normocephalic, atraumatic. Eyes: Pupils equal round and reactive to light, extra-ocular motions intact. Lids and lashes normal. Conjunctiva and sclera are non-icteric and not injected. Cornea within normal limits. Periorbital areas with no swelling, redness, or edema. ENT: Nares patent. No nasal discharge, no septal abnormalities noted. Tympanic membranes are normal and external auditory canals are clear. Oropharynx with no redness, swelling, or masses, exudates, or evidence of obstruction, uvula midline. Mucous membranes moist. Neck: Trachea midline, no thyromegaly or masses palpated, and no cervical lymphadenopathy. Supple, full range of motion without nuchal rigidity, or vertebral point tenderness. No Meningismus. Chest/axilla: Normal chest wall appearance and motion. Nontender with no deformity. No lesions are appreciated. Cardiovascular: Regular rate and rhythm with a normal S1 and S2. No gallops, murmurs, or rubs. Normal PMI, no JVD. No pulse deficits. Respiratory: Lungs have equal breath sounds bilaterally, clear to auscultation and percussion. No rales, rhonchi or wheezes noted. No increased work of breathing, no retractions or nasal flaring. Abdomen/GI: Soft, non-tender, with normal bowel sounds. No distension or tympany. No guarding or rebound. No evidence of tenderness throughout. Back: No spinal tenderness. No costovertebral tenderness. Full range of motion. Male : Normal genitalia with no discharge or lesions. Skin: Warm, dry with normal turgor. Normal color with no rashes, no lesions, and no evidence of cellulitis. Neuro: Awake and alert, GCS 15, oriented to person, place, time, and situation. Cranial nerves II-XII grossly intact. Motor strength 5/5 in all extremities. Sensory grossly intact. Cerebellar exam normal. Normal gait. Psych: Awake, alert, with orientation to person, place and time. Behavior, mood, and affect are within normal limits. 22:30 Musculoskeletal/extremity: Extremities: grossly normal except: noted in the dorsal aspect of proximal phalanx of left index finger and dorsum of left hand: contusion, decreased ROM, pain, Vital Signs: 22:07 BP 126 / 75; Pulse 93; Resp 18 S; Temp 98.2(TE); Pulse Ox 99% on R/A; Weight 97.52 kg as6 (R); Height 5 ft. 5 in. (R); Pain 8/10; 23:00 BP 115 / 99; Pulse 64; Resp 17 S; Pulse Ox 95% on R/A; jw7 12/30 00:00 BP 108 / 66; Pulse 76; Resp 16 S; Pulse Ox 96% on R/A; jw7 00:43 BP 115 / 71; Pulse 70; Resp 16 S; Pulse Ox 96% on R/A; jw7 12/29 22:07 Body Mass Index 35.78 (97.52 kg, 165.1 cm) as6 12/29 22:07 Pain Scale: Adult as6 MDM: 12/29 22:00 Patient medically screened. britton 22:31 Differential diagnosis: closed fracture, contusion, abrasion, tendonitis. Data britton reviewed: vital signs, nurses notes, lab test result(s), radiologic studies, plain films. Consideration of Admission/Observation Escalation of care including admission/observation considered. I considered the following discharge prescriptions or medication management in the emergency department Medications were administered in the Emergency Department. See MAR. Independent interpretation of the following test(s) in the Emergency Department X-Ray: My interpretation is no fx. Test considered but Not performed: EKG: no ekg. Care significantly affected by the following chronic conditions: Obesity, dvt. 12/29 23:20 Order name: Comprehensive Metabolic Panel; Complete Time: 00:12 EDMS 12/29 23:20 Order name: Uric Acid; Complete Time: 00:12 EDMS 12/29 23:21 Order name: CBC with Automated Diff; Complete Time: 00:12 EDMS 12/29 23:25 Order name: Hand Left 3 View EDMS Administered Medications: 23:08 Drug: NS 0.9% IV 1000 ml IV at 1 bolus Per protocol; 1000 mL bolus Route: IV; Rate: 1 jw7 bolus; Site: right antecubital; 12/30 00:34 Follow up: Response: No adverse reaction; IV Status: Completed infusion; IV Intake: jw7 1000ml 12/29 23:08 Drug: Ketorolac IVP 15 mg IVP once Route: IVP; Site: right antecubital; jw7 12/30 00:34 Follow up: Response: No adverse reaction; Marked relief of symptoms 7 12/29 23:08 Drug: morphine IVP or IV 4 mg IVP once over 4 mins Route: IVP; Infused Over: 4 mins; jw7 Site: right antecubital; 12/30 00:35 Follow up: Response: No adverse reaction; Marked relief of symptoms 7 12/29 23:08 Drug: Ondansetron IVP 4 mg IVP once; over 2 minutes Route: IVP; Site: right antecubital;jw7 12/30 00:35 Follow up: Response: No adverse reaction 7 12/29 23:08 Drug: Colcrys PO 1.2 mg PO once Route: PO; jw7 12/30 00:35 Follow up: Response: No adverse reaction 7 12/29 23:08 Drug: Decadron - Dexamethasone IVP 10 mg IVP once Route: IVP; Site: right antecubital; jw7 12/30 00:35 Follow up: Response: No adverse reaction 7 12/29 23:45 Drug: Colcrys PO 0.6 mg PO once; give 1 hour after the 1.2 mg dose Route: PO; jw7 12/30 00:35 Follow up: Response: No adverse reaction jw7 Disposition Summary: 12/30/22 00:13 Discharge Ordered Notes: Location: Home britton Problem: new britton Symptoms: have improved britton Condition: Stable britton Diagnosis - Gout, unspecified britton - Pain in right hand britton Followup: britton - With: Private Physician - When: 2 - 3 days - Reason: Recheck today's complaints, Continuance of care, Re-evaluation by your physician Followup: britton - With: Prince Sprague MD - When: 2 - 3 days - Reason: Recheck today's complaints, Re-evaluation by your physician Discharge Instructions: - Discharge Summary Sheet britton - Gout britton - Musculoskeletal Pain britton - Low-Purine Eating Plan britton - Hand Pain [facility] Forms: - Medication Reconciliation Form britton - Thank You Letter britton - Antibiotic Education britton - Prescription Opioid Use britton - Patient Portal Instructions britton - Leadership Thank You Letter britton - Work release form jw7 Prescriptions: - acetaminophen-codeine 300-30 mg Oral tablet - take 2 tablet ORAL route every 6 hours as needed for pain; 20 tablet; Refills: britton 0, Product Selection Permitted - colchicine 0.6 mg Oral tablet - take 2 tablet ORAL route as directed 2 tabs po x1 and 1 0.6 mg tab 1 hour britton later; 12 tablet; Refills: 0, Product Selection Permitted - indomethacin 25 mg Oral capsule - take 1 capsule ORAL route every 8 hours for 5 days as needed for premature britton labor; administer with food or milk; 15 capsule; Refills: 0, Product Selection Permitted - Medrol (Eric) 4 mg Oral Tablets, Dose Pack - take 1 tablet ORAL route as directed - follow package instructions; 1 packet; [facility] Refills: 0, Product Selection Permitted Signatures: Dispatcher [employer] Shawn Ansari MD MD cha Slawson, Ashby, RN RN as6 Tara Vega RN RN jw7
[2022-12-30 00:58] VITALS: TEMP 98.2
[2022-12-30 01:01] VITALS: O2SAT 96
[2022-12-30 01:02] VITALS: BP 115/71
--- NOTE | 2022-12-30 22:35 | RAD REPORT ---
EXAM DESCRIPTION: RAD - Hand Left 3 View - 12/29/2022 11:48 pm CLINICAL HISTORY: 22 years Male, pain, swelling COMPARISON: None. IMPRESSION: No fracture or dislocation. Radiocarpal and intercarpal degenerative changes. Dorsal wrist and hand swelling. Electronically signed by: Yung Millard DO 12/30/2022 12:30 AM CDT Due to temporary technical issues with the PACS/Fluency reporting system, reports are being signed by the in house radiologists without review as a courtesy to insure prompt reporting. The interpreting radiologist is fully responsible for the content of the report.
== END 2022-12-30 00:51 | disposition home or self-care (01) ==
LOC: ER 21:56
DX: M10.9 Gout, unspecified (principal); M79.641 Pain in right hand; F17.210 Nicotine dependence, cigarettes, uncomplicated
CPT/HCPCS: 36415; 80053; 84550; 85025; 96361; 96374; 96375; 99284; J1100; J2405; J7030

== ENCOUNTER 2023-01-28 22:28 | Emergency (ER) | payer SELFPAY ==
--- OUTSIDE RECORDS SUMMARY | 2023-01-28 22:31 | XMS REPORT | Continuity of Care Document ---
:[address] [facility] t Address [address] [facility] [address] [place] [address] Care Team Providers Name Role Phone PCP, PATIENT DOES NOT HAVE A Primary Care Physician UnavailVIANEY Garg Attending Clinician Unavailable Vianey Suggs Attending Clinician Laura Sanders RN Attending Clinician Unavailable Ana Maria Zhang Attending Clinician Doctor Unassigned, [place] Attending Clinician Unavailable IRMA DSOUZA Attending Clinician [...] thrombosis thrombosis [place] [address] [place] [address] Obesity Obesity Disease Active 2017-02 Univers (BMI (BMI 2-09 ity of 30-39.9) 30-39.9) 00:00: [address] Allergies, Adverse Reactions, Alerts Allergy Allergy Status Severity Reaction(s) Onset Inactive Treating Comm ents Source Name Type Date Date Clinician NO KNOWN Drug Active Univers ALLERGIE Class ity of S [facility] Social History Social Habit Start Date Stop Date Quantity Comments Source History SDOH University o f Alcohol Frequency [place] [facility] History SDOH University o f Alcohol Std [place] [facility] Drinks Branch History SDOH University o f Alcohol Binge [place] [facility] Exposure to Not sure University of SARS-CoV-2 [facility] (event) Branch History of Cigar Smoker University o f tobacco use [facility] Tobacco use and 2019-08-02 2019-08-02 Never used Universit y of exposure 00:00:00 00:00:00 [facility] Alcohol intake 2019-08-02 2019-08-02 Current drinker Unive rsity of 00:00:00 00:00:00 of alcohol [place] [facility] (finding) Branch Tobacco Comment 2018-02-04 2018-02-04 1 cigar a week Unive rsity of 00:00:00 00:00:00 for the past 1.5 [place] Me dical years [place] Alcohol Comment 2017-05-12 2017-05-12 socially Universit y of 00:00:00 00:00:00 [facility] Sex Assigned At [birth year] Universit y of 00:00:00 00:00:00 [facility] Smoking Status Start Date Stop Date Source Former smoker 2019-08-02 00:00:00 2019-08-02 00:00:00 Universi ty of [facility] Current some 2019-01-07 00:00:00 [facility] Medications Ordered Filled Start Stop Current Ordering [...] h tablet at 0230, KEMI colchicine Yes [id number] Take 2 U nivers 0.6 mg 1-08 [...] Medic al powder 17 g 08/04/19 at [facility] 2230, Routine melatonin 2019-0 2020- No 6mg 6 mg, Univer s (MELATIN) 08-04- Oral, ity of tablet 6 mg 02:41: 03:16 [place]CE[place] dose, [facility] 08/04/19 at Branch 2145, Routine acetaminoph 2020-0 Yes [id number] 1{tbl} Take 1 Univers en-codeine 6- 9107 tablet by ity of 300-30 mg 00:00: mouth [place] tablet 00 every 4 Medical (four) Branch hours as needed (foot pain). acetaminoph 2019-0 Yes [id number] 1{tbl} Take 1 Univers en-codeine 6- 9107 tablet by ity of 300-30 mg 00:00: mouth [place] tablet 00 every 4 Medical (four) Branch hours as needed (foot pain). acetaminoph 2019-0 Yes [id number] 1{tbl} Take 1 Univers en-codeine 6- 9107 tablet by ity of 300-30 mg 00:00: mouth [place] tablet 00 every 4 Medical (four) Branch hours as needed (foot pain). acetaminoph 2020-0 Yes [id number] 1{tbl} Take 1 Univers en-codeine 6-08 9107 tablet by ity of 300-30 mg 00:00: mouth [place] tablet 00 every 4 Medical (four) Branch hours as needed (foot pain). acetaminoph 2020-0 2021- No [id number] 1{tbl} Take 1 Univers en-codeine 6-08 -08 [...] Oral, ity of (TYLENOL 20:14: 23:45 Q4HPRN, [place] #3) 300-30 30 :01 Starting Medic al mg tablet 1 08/03/19 Br anch tablet at 1514, Until 08/04/19 at 1845, Routine, Pain (scale 4-6) morpHINE 2019-0 Yes 2mg 2 mg, Slow Uni vers injection 2 08-02 IV Push, ity of mg 05:57: [facility] [place] [facility] Starting Medical 08/03/19 Branch at 0057, Until Discontinu ed, Routine, Pain (scale 7-10) enoxaparin 2019-0 2020- No 1mg/kg 100 mg Un shantel (LOVENOX) 08-02- (rounded ity o f injection 01:45: 00:54 [place] 104.3 [place] 100 mg 00 :42 mg = 1 Medical mg/kg Branch ?104.3 kg), [facility], ONCE, 1 dose, Mon08/02/19 at 204, KEMI [...] = 1 Medical mg/kg Branch ?104.3 kg), [facility], Q12H, First dose on Mon08/02/19 at 2000, Until Discontinu ed, Routine iohexol 2019- 2020- No 120mL 120 mL, Unive rs (OMNIPAQUE 08-01 Intravenou it y of 350 23:16: 23:17 s, ONCE, 1 [place] BULK-150 00 :00 dose, Fri Medica l mL) 08/02/19 at Branch injection 1830, 120 mL Routine traMADol 50 2018-0 Yes [id number] 50mg Take 1 Univers mg tablet 10-08 [id number] tablet by ity of 00:00: mouth [place] 00 every 6 Medical (six) Branch hours as needed for Pain (scale 4-6). traMADol 50 2018- Yes [id number] 50mg Take 1 Univers mg tablet 8-12 [id number] tablet by ity of 00:00: mouth [place] 00 every 6 Medical (six) Branch hours as needed for Pain (scale 4-6). traMADol 50 2018- 2020- No [id number] 50mg Take 1 Univers mg tablet 8-12 06-08 [id number] tablet by it y of 00:00: 00:00 mouth [place] 00 :00 every 6 Medical (six) Branch hours as needed for Pain (scale 4-6). acetaminoph Yes [id number] 1{tbl} Take 1 Univers en-codeine 7-04 9107 tablet by ity of 300-30 mg 00:00: mouth [place] tablet 00 every 4 Medical (four) Branch hours as needed (foot pain). acetaminoph Yes [id number] 1{tbl} Take 1 Univers en-codeine 7-04 9107 tablet by ity of 300-30 mg 00:00: mouth [place] tablet 00 every 4 Medical (four) Branch hours as needed (foot pain). acetaminoph Yes [id number] 1{tbl} Take 1 Univers en-codeine 7-04 9107 tablet by ity of 300-30 mg 00:00: mouth [place] tablet 00 every 4 Medical (four) Branch hours as needed (foot pain). acetaminoph 2020- No [id number] 1{tbl} Take 1 Univers en-codeine 7-04 06-08 9107 tablet by ity of 300-30 mg 00:00: 00:00 mouth [place] tablet 00 :00 every 4 Medical (four) Branch hours as needed (foot pain). cyclobenzap Yes [id number] 10mg Take 1 Univers rine 10 mg 6-17 tablet by ity of tablet 00:00: mouth 3 [place] 00 (three) Medical times Branch daily. cyclobenzap 2019- No [id number] 10mg Take 1 Univers rine 10 mg 6-17 08-12 tablet by ity of tablet 00:00: 00:00 mouth 3 [place] 00 :00 (three) Medical times Branch daily. traMADOL 2018-0 Yes [id number] 50mg Take 1 Univers (ULTRAM) 50 3-24 9109 tablet by ity of mg tablet 00:00: mouth [place] 00 every 6 Medical (six) Branch hours as needed for Pain (scale 4-6). traMADOL 2019- No [id number] 50mg Take 1 Univers (ULTRAM) 50 3-24 [...] 07:31:00 132 mm[Hg] Univer sity of pressure [facility] Diastolic blood 2021-03-06 07:31:00 89 mm[Hg] Unive [facility] Heart rate 2021-03-06 07:31:00 105 /min [facility] Body temperature 2021-03-06 06:03:00 37.67 [facility] [place] [facility] Respiratory rate 2021-03-06 06:03:00 18 /min [facility] Body height 2021-03-06 06:03:[address] [facility] Body weight 2021-03-06 06:03:[address] [facility] BMI 2021-03-06 06:03:00 35.40 kg/m2 [facility] Oxygen saturation in 2021-03-06 06:03:00 97 /min University of Arterial blood by [facility] Pulse oximetry Branch Heart rate 2019-08-05 15:50:00 108 /min [facility] Body temperature 2019-08-05 15:50:00 36.17 [facility] ersity [facility] Respiratory rate 2019-08-05 15:50:00 18 /min [facility] Oxygen saturation in 2019-08-05 15:50:00 94 /min University of Arterial blood by [facility] Pulse oximetry Branch Systolic blood 2019-08-05 15:50:00 124 mm[Hg] Univer sity of [facility] Diastolic blood 2019-08-05 15:50:00 80 mm[Hg] Unive rsity [facility] Body weight 2019-08-05 09:13:00 102.468 kg [facility] BMI 2019-08-05 09:13:00 38.78 kg/m2 [facility] Body height 2019-08-02 20:57:[address] [facility] Systolic blood 2018-10-08 19:00:00 128 mm[Hg] Univer sity of [facility] Diastolic blood 2018-10-08 19:00:00 78 mm[facility]Hg] [facility] 2018-10-08 19:00:00 109 /min [facility] Respiratory rate 2018-10-08 19:00:00 20 /min [facility] Oxygen saturation in 2018-10-08 19:00:00 97 /min [facility] Arterial blood by [facility] Pulse oximetry Branch Body temperature 2018-10-08 17:30:00 37.5 [facility] [place] [facility] Body height 2018-10-08 17:30:[address] [facility] Body weight 2018-10-08 17:30:[address] [facility] BMI 2018-10-08 17:30:00 35.78 kg/m2 [facility] Procedures Procedure Date / Time Performing Clinician Source Performed NOTICE OF PRIVACY 2021-03-06 05:54:45 Doctor Unassigned, [facility] PRACTICES [facility] CONSENT/REFUSAL FOR 2021-03-06 05:54:27 Doctor Unassigned, [facility] DIAGNOSIS AND TREATMENT [facility] [place] MEDICATION CORRESPONDENCE 2019-08-06 05:01:00 Doctor Elly, [facility] UNILATERAL VENOUS DUPLEX 2019-08-05 15:42:25 Donaldo Smith [facility] UPPER BY VASCULAR LAB Medical Br anch XR ELBOW <3 VW RIGHT 2019-08-04 15:40:55 Donaldo Smith [facility] BASIC METABOLIC PANEL 2019-08-03 08:41:00 Irma Dsouza [facility] (NA, K, CL, CO2, GLUCOSE, Medica l Branch BUN, CREATININE, CA) COVID-19 (ID NOW RAPID 2019-08-03 00:53:00 Katja Saez [facility] TESTING) Medical Branch EKG-12 LEAD 2019-08-03 00:39:18 Korin Yen [facility] CHEST PULMONARY 2019-08-02 23:25:53 Katja Saez [facility] ANGIOGRAM Medical Branch UNILATERAL VENOUS DUPLEX 2019-08-02 21:43:[address] [facility]OWER EXTREMITY BY Medical [facility] h VASCULAR LAB COMP. METABOLIC PANEL 2019-08-02 21:41:00 Katja Saez [facility] ([id number]) [facility] CBC WITH DIFFERENTIAL 2019-08-02 21:41:00 Katja Saez [facility] EKG-12 LEAD 2019-08-02 21:33:27 Katja Saez [facility] NOTICE OF PRIVACY 2019-08-02 21:24:25 Doctor Elly, [facility] CONSENT/REFUSAL FOR 2019-08-02 20:53:33 Doctor Elly [facility] DIAGNOSIS AND TREATMENT [facility] XR ELBOW <3 VW RIGHT 2018-10-08 18:45:13 Vianey Wiggins [facility] XR SHOULDER 2+ VW RIGHT 2018-10-08 18:45:13 Vianey Wiggins [facility] CONSENT/REFUSAL FOR 2018-10-08 17:13:21 [facility] DIAGNOSIS AND TREATMENT [facility] Encounters Start End Encounter Admission Attending Care Care Encounter Source Date/Time Date/Time Type Type Clinicians Facility Department ID 2021-03-06 2021-03-06 Emergency X ZEKE WIGGINS ERT [id number] Univers 00:29:00 01:37:00 [facility] 2021-03-06 2021-03-06 Emergency ZEKE Wiggins [id number] Univers 00:29:00 01:37:00 Vianey ROLLINS 350.1.13.10 i ty [place] [id number] [facility] 084 Branch 2020-08-29 2020-08-29 Nurse Laura Sanders [id number] Univers 00:00:00 00:00:00 Triage SEVEN 350.1.13.10 it y of HOSPITAL 4.2.7.2.686 Cj as [id number] [facility] 019 Branch 2019-08-07 2019-08-07 Transition Haydee Zhang [id number] Univers 00:00:00 00:00:00 of Care Ana Maria Dinero 350.1.13.10 ity of [place]7.2.[place] [phone] [facility] 403 Branch 2019-08-06 2019-08-06 Orders Doctor REYES [id number] Univers 00:00:00 00:00:00 Only Unassigned, SEVEN 350.1.13.10 ity of [facility] 4.2.7.2.686 Cj as [id number] [facility] 009 Branch 2019-08-02 2019-08-05 Inpatient X LIANNA [facility] KASANDRA [id number] Univers 15:59:29 13:35:00 SHEBEY ity of [facility] 2019-08-02 2019-08-05 [facility] Katja Saez [facility] 1.2.840.1 [id number] Univers 15:59:29 13:35:00 Encounter Irma Dsouza 350.1.13.10 ity [place] [id number] [facility] 081 Branch 2019-08-02 2019-08-02 Orders Doctor REYES [id number] Univers 00:00:00 00:00:00 Only Unassigned, SEVEN 350.1.13.10 ity of [facility] 4.2.7.2.686 Cj as [id number] [facility] 009 Branch 2018-10-08 2018-10-08 Emergency Luigi [facility] [id number] Univers 12:31:39 14:41:00 Vianey Rollins 350.1.13.10 i ty [place] [id number] [facility] 084 Branch 2018-10-08 2018-10-08 Orders Doctor AMY 1.2.840.114 [id number] Univers 00:00:00 00:00:00 Only Unassigned, SEVEN 350.1.13.10 ity of [place] [facility] 4.2.7.2.686 Cj [id number] [facility] 009 Branch Results Test Description Test Time Test Comments Results Result Sourc e Comments XR ELBOW <3 VW Questionable Univers ity of RIGHT [facility] 18[facility]55 lymphadenopathy. No Branc h acute [...] Interpretation Comme nts NA (test code = 2244542065) 136 mmol/L 135-145 K (test code = 1835652943) 3.9 mmol/L 3.5-5 CL (test code = 1983445259) 104 mmol/L 98-108 CO2 TOTAL (test code = 9192150951) 26 mmol/L 23-31 AGAP (test code = 3302900096) 2-16 BUN (test code = 6583098182) 9 mg/dL 7-23 GLUCOSE (test code = 1585459749) 119 mg/dL 70-110 H CREATININE (test code = 0.66 mg/dL 0.6-1.25 1878054028) CALCIUM (test code = 5257971910) 9.8 mg/dL 8.6-10.6 eGFR Calculation (Non- mL/min/1.73m2 [place]) (test code = 5778344188) eGFR Calculation ( mL/min/1.73m2 [place]) (test code = 6685544051) SARAH (test code = SARAH) Association of [...] tests). Lab Interpretation (test code = Abnormal 34200-5) [facility]ID [facility])2019-08-03 01:47:00 Test Item Value Reference Range Interpretation Comments SARS-CoV-2 Rapid ID NOW Not Detected Not Detected (test code = 93557-5) SARAH (test code = SARAH) ID NOW COVID-19 Assay is an isothermal nucleic acid amplification test intended for the qualitative detection of nucleic acid from SARS-CoV-2 viral RNA in nasopharyngeal (SLOPE HOIST OPERATOR) specimens. It is used under Emergency Use [...] indicated. Lab Interpretation Normal (test code = 82211-6) [facility] CHEST PULMONARY [id number] 23:52:46 1. ?No acute pulmonary embolism. 2. [...] reviewed this study and agree with theabove report.[facility]. METABOLIC PANEL (08700) 2019-08-02 22:39:00 Test Item Value Reference Range Interpretation Comments NA (test code = 138 mmol/L 135-145 0676726124) K (test code = 4.5 mmol/L 3.5-5 0808601877) CL (test code = 101 mmol/L 98-108 7516221451) CO2 TOTAL (test code = 29 mmol/L 23-31 4575476080) AGAP (test code = 2-16 9357057798) BUN (test code = 10 mg/dL 7-23 3194514229) GLUCOSE (test code = 103 mg/dL 70-110 1823407676) CREATININE (test code = 0.61 mg/dL 0.6-1.25 4194789638) TOTAL BILI (test code = 0.9 mg/dL 0.1-1.4 0496159548) CALCIUM (test code = 10.4 mg/dL 8.6-10.6 5947154894) T PROTEIN (test code = 8.9 g/dL 6.3-8.2 H 8733541590) ALBUMIN (test code = 5.0 g/dL 3.5-5 8205947211) ALK PHOS (test code = 84 U/L 34-122 8770425208) ALTv (test code = 185 U/L 5-50 H 1742-6) AST(SGOT) (test code = 71 U/L 13-40 H 2522622406) eGFR Calculation mL/min/1.73m2 (Non-) (test code = 0482768046) eGFR Calculation mL/min/1.73m2 () (test code = 0627539231) SARAH (test code = SARAH) Association of [...] tests). Lab Interpretation Abnormal (test code = 51614-9) [facility] WITH [id number] 21:53:00 Test Item Value Reference Range Interpretation Comments WBC (test code = See_Comment H [Automated 7190-2) message] The sy stem which generated this [...] RDW-SD (test code = 41.3 fL 38.5-51.6 83028-0) RDW-CV (test code = 11.8 % 12.1-15.4 L 788-0) PLT (test code = See_Comment [Automated 777-3) message] The sy stem which generated this result transmitted reference range : 150 - 328 10*3/ ?L. The reference r lynn was not used to interpret this result as normal/abnormal . MPV (test code = 10.3 fL 9.8-13 41818-0) NRBC/100 WBC (test See_Comment [Automat ed code = 8589632865) message] The system which generated this result transmitted reference range : 0.0 - 10.0 /100 WBCs. The refer ence range was not u sed to interpret th is result as normal/abnormal . NRBC x10^3 (test code <0.01 See_Comment [Auto mated = 7568798869) message] The s ystem which generated this result transmitted reference range : 10*3/?L. The reference range was not used to interpret this result as normal/abnormal . GRAN MAT (NEUT) % 57.3 % (test code = 770-8) IMM GRAN % (test code 0.40 % = 6642655181) LYMPH % (test code = 30.2 % 736-9) MONO % (test code = 8.9 % 5905-5) EOS % (test code = 2.6 % 713-8) BASO % (test code = 0.6 % 706-2) GRAN MAT x10^3(ANC) 6.53 10*3/uL 1.99-6.95 (test code = 3032057170) IMM GRAN x10^3 (test 0.05 10*3/uL 0-0.06 code = 7140339636) LYMPH x10^3 (test code 3.45 10*3/uL 1.09-3.23 H = 731-0) MONO x10^3 (test code 1.02 10*3/uL 0.36-1.02 = 742-7) EOS x10^3 (test code = 0.30 10*3/uL 0.06-0.53 711-2) BASO x10^3 (test code 0.07 10*3/uL 0.01-0.09 = 704-7) Lab Interpretation Abnormal (test code = 20442-1) [facility] [place] [facility]+ VW [id number] 18:50:46 No acute osseous abnormality. EXAM: XR [...] soft tissue abnormality is seen.IMPRESSIONNo acute osseous abnormality.[facility] [place] [facility] ELBOW <3 VW [id number] 18:50:46 No acute osseous abnormality. EXAM: XR [...] tissue abnormality is seen. [facility] User - 10/08/2018 1:52 PM CDTEXAM: XR [...] soft tissue abnormality is seen.IMPRESSIONNo acute osseous abnormality.[facility]"
--- NOTE | 2023-01-28 22:43 | EDPHYS ---
Physician Documentation [facility] Name: Triston Ballard Age: 22 yrs Sex: Male : 2000 Arrival Date: 01/28/2023 Time: 22:28 Bed IW1 Private MD: ED Physician Shayne Rueda HPI: 01/28 22:43 This 22 yrs old Male presents to ER via Ambulatory with complaints of Eye ms3 Pain, Redness of Eye. 22:43 22-year-old male with past medical history of DVT, gout, headache presents to the [facility] emergency department for left eye pain that began 2 days prior to arrival. Patient states he purchased eyedrops and they did not relieve his pain. Patient states the pain is worse with blinking. Patient states pain is a 6/10 located in his lower eyelid. Patient denies any alleviating factors.. Historical: - Allergies: 22:35 NKA; cm10 - PMHx: 22:35 blood clot in R leg; Gout; Headaches; cm10 - Immunization history:: Adult Immunizations unknown. - Social history:: Smoking status: Patient reports the use of cigarette tobacco products, denies chronic smoking, but will smoke occasionally. ROS: 22:43 Constitutional: Negative for fever, and chills. Cardiovascular: Negative for chest ms3 pain, and palpitations. Respiratory: Negative for shortness of breath, cough, wheezing, and pleuritic chest pain, Abdomen/GI: Negative for abdominal pain, nausea, vomiting, diarrhea, and constipation, Back: Negative for injury and pain, MS/Extremity: Negative for injury and deformity, 22:43 Eyes: Positive for pain, 22:43 All other systems are negative, Exam: 22:43 Constitutional: This is a well developed, well nourished patient who is awake, alert, ms3 and in no acute distress. Head/Face: Normocephalic, atraumatic. Chest/axilla: Normal chest wall appearance and motion. Nontender with no deformity. Cardiovascular: Regular rate and rhythm with a normal S1 and S2. No gallops, murmurs, or rubs. Normal PMI, no JVD. No pulse deficits. Respiratory: Lungs have equal breath sounds bilaterally, clear to auscultation and percussion. No rales, rhonchi or wheezes noted. No increased work of breathing, no retractions or nasal flaring. Abdomen/GI: Soft, non-tender, with normal bowel sounds. No distension or tympany. No guarding or rebound. No evidence of tenderness throughout. 22:43 Eyes: Periorbital structures: swelling, that is mild, on the left lower eyelid, Pupils: equal, round, and reactive to light and accomodation, Extraocular movements: no acute changes, Conjunctiva: normal, Lids and lashes: erythema, on the left, stye, on the left lid, Vital Signs: 22:32 BP 137 / 94; Pulse 86; Resp 18 S; Temp 97.5(IR); Pulse Ox 100% on R/A; Weight 102.06 cm10 kg; Pain 6/10; 22:32 Pain Scale: Adult cm10 MDM: 22:41 Patient medically screened. ms3 22:43 Differential diagnosis: External hordeolum. Data reviewed: vital signs, nurses notes, ms3 and as a result, I will discharge patient. Care significantly affected by the following Social Determinants of Health: Poor access to healthcare and/or lack of insurance. Counseling: I had a detailed discussion with the patient and/or guardian regarding the historical points, exam findings, and any diagnostic results supporting the discharge/admit diagnosis, the need for outpatient follow up, to return to the emergency department if symptoms worsen or persist or if there are any questions or concerns that arise at home, smoking cessation. Special discussion: I discussed with the patient/guardian in detail that at this point there is no indication for admission to the hospital. It is understood, however, that if the symptoms persist or worsen the patient needs to return immediately for re-evaluation. ED course: Discussed physical exam findings with patient. Patient to follow-up with primary care physician in 2 to 3 days. Patient understands and agrees with plan. All questions were answered. Return precautions discussed include worsening symptoms, or any other concerns. Administered Medications: No medications were administered Disposition Summary: 01/28/23 22:43 Discharge Ordered Notes: Location: Home ms3 Condition: Stable ms3 Diagnosis - Left eye sty ms3 Followup: ms3 - With: Eulalio Lobo DO - When: 2 - 3 days - Reason: Recheck today's complaints Discharge Instructions: - Discharge Summary Sheet ms3 - Stye ms3 Forms: - Medication Reconciliation Form ms3 - Thank You Letter ms3 - Antibiotic Education ms3 - Prescription Opioid Use ms3 - Patient Portal Instructions ms3 - Leadership Thank You Letter ms3 Signatures: Shayne Rueda DO DO ms3 Estefanía Ortiz, RN RN cm10
--- NOTE | 2023-01-28 22:43 | ER ---
Nurse's Notes [facility] Name: Triston Ballard Age: 22 yrs Sex: Male : 2000 Arrival Date: 01/28/2023 Time: 22:28 Bed IW1 Private MD: Diagnosis: Left eye sty Presentation: 01/28 22:32 Chief complaint: Patient states: unsure if he got trash in left eye while changing oil cm10 last week. Pt states that he started having redness and started using Visine with relief so he stopped using the eye drops. Pt states that 2 days ago the pain and redness came back. No changes to vision. Coronavirus screen: Vaccine status: Patient reports receiving the 2nd dose of the covid vaccine. Client denies travel out of the [place] in the last 14 days. Ebola Screen: Patient denies travel to an Ebola-affected area in the 21 days before illness onset. No symptoms or risks identified at this time. Mechanism of Injury: No Mechanism of Injury. The patient denies any loss of vision. Initial Sepsis Screen: Does the patient meet any 2 criteria? No. Patient's initial sepsis screen is negative. Does the patient have a suspected source of infection? No. Patient's initial sepsis screen is negative. Risk Assessment: Do you want to hurt yourself or someone else? Patient reports no desire to harm self or others. Onset of symptoms was January 28, 2023. 22:32 Method Of Arrival: Ambulatory cm10 22:32 Acuity: JULIANNE 4 cm10 Triage Assessment: 22:35 General: Appears in no apparent distress. comfortable, Behavior is calm, cooperative. cm10 Pain: Complains of pain in left eye. EENT: Eyes are tearing on left eye. Neuro: No deficits noted. Level of Consciousness is awake, alert, obeys commands, Oriented to person, place, time, situation. Cardiovascular: No deficits noted. Patient's skin is warm and dry. Respiratory: No deficits noted. Airway is patent Respiratory effort is even, unlabored, Respiratory pattern is regular, symmetrical. GI: No deficits noted. No signs and/or symptoms were reported involving the gastrointestinal system. : No deficits noted. No signs and/or symptoms were reported regarding the genitourinary system. Derm: No deficits noted. No signs and/or symptoms reported regarding the dermatologic system. Skin is intact, Skin is pink, warm \T\ dry. Musculoskeletal: No deficits noted. No signs and/or symptoms reported regarding the musculoskeletal system. Range of motion: intact in all extremities. Historical: - Allergies: 22:35 NKA; cm10 - PMHx: 22:35 blood clot in R leg; Gout; Headaches; cm10 - Immunization history:: Adult Immunizations unknown. - Social history:: Smoking status: Patient reports the use of cigarette tobacco products, denies chronic smoking, but will smoke occasionally. Screenin:36 [facility] ED Fall Risk Assessment (Adult) History of falling in the last 3 months, cm10 including since admission No falls in past 3 months (0 pts) Confusion or Disorientation No (0 pts) Intoxicated or Sedated No (0 pts) Impaired Gait No (0 pts) Mobility Assist Device Used No (0 pt) Altered Elimination No (0 pt) Score/Fall Risk Level 0 - 2 = Low Risk Oriented to surroundings, Maintained a safe environment, Hourly rounding (assess needs \T\ fall precautionary measures) done. Abuse screen: Denies threats or abuse. Denies injuries from another. Nutritional screening: No deficits noted. Tuberculosis screening: No symptoms or risk factors identified. Assessment: 22:50 EENT: Sclera/Cornea are reddened in left eye. cm10 Vital Signs: 22:32 BP 137 / 94; Pulse 86; Resp 18 S; Temp 97.5(IR); Pulse Ox 100% on R/A; Weight 102.06 cm10 kg; Pain 6/10; 22:32 Pain Scale: Adult cm10 ED Course: 22:29 Patient arrived in ED. [id number] 22:30 Shayne Rueda DO is Attending Physician. ms3 22:35 Triage completed. cm10 22:35 Arm band placed on Patient placed in an exam room, on a stretcher. cm10 22:36 Patient has correct armband on for positive identification. Provided Education on: ER cm10 process and procedures. . 22:36 No provider procedures requiring assistance completed. Patient did not have IV access cm10 during this emergency room visit. 22:42 Eulalio Lobo DO is Referral Physician. ms3 Administered Medications: No medications were administered Medication: 22:36 VIS not applicable for this client. cm10 Outcome: 22:43 Discharge ordered by . ms3 22:50 Discharged to home ambulatory, cm10 22:50 Condition: good 22:50 Discharge instructions given to patient, Instructed on discharge instructions, follow up and referral plans. Demonstrated understanding of instructions, follow-up care, 22:51 Patient left the ED. cm10 Signatures: Shayne Rueda DO DO ms3 Maya [email or web address] Estefanía Ortiz, RN RN cm10
[2023-01-28 23:06] VITALS: BP 137/94; TEMP 97.5; O2SAT 100
== END 2023-01-28 22:51 | disposition home or self-care (01) ==
LOC: ER 22:28
DX: H00.016 Hordeolum externum left eye, unspecified eyelid (principal)
CPT/HCPCS: 99282

== ENCOUNTER → 2023-02-23 | Emergency (ER) | payer SELFPAY ==
[~2023-02-23] MED LIST: COLCHICINE 0.6 MG TAB ONE; HYDROCODONE/APAP 7.5/325 MG TAB ONE; predniSONE 20 MG TAB ONE
--- OUTSIDE RECORDS SUMMARY | 2023-02-23 08:08 | XMS REPORT | Continuity of Care Document ---
Author Name Unknown Address [address] [facility] [place] [address] [facility] Address [address] [facility] [address] [place] [address] Care Team Providers Care Older Adult Social Work Specialist Name Role Phone PCP, PATIENT DOES NOT HAVE A Primary Care Physic itz Unavailable VIANEY WIGGINS Attending Clinician Unavailable Vianey Suggs Attending Clinician [phone] Laura Sanders RN Attending Clinician Unavailable Ana Maria Zhang Attending Clinician [phone] Doctor Unassigned, [place] Attending Clinician U IRMA [place] Attending Clinician Unavailable Katja Gutierrez Attending Clinician [phone] Irma Jennings MD Attending Clinician [phone] IRMA JENNINGS Admitting Clinician Unavailable Irma Jennings MD Admitting Clinician [phone] Problems Condition Name Condition Details Condition Category Status Onset Date Resolution Date Last Treatment Date Treating Clinician Comments Source DVT (deep venous thrombosis ) DVT (deep venous thrombosis ) Disease Active 2017-02 00:00: 00 [facility] Obesity (BMI 30-39.9) Obesity (BMI 30-39.9) Disease Active 2017-02 00:00: 00 [facility] Allergies, Adverse Reactions, Alerts Allergy Name Allergy Type Status Severity Reaction(s) Onset Date Inactive Date Treating Clinician Comments Source NO KNOWN ALLERGIE S Drug Class Active [facility] Social History Social Habit Start Date Stop Date Quantity Comments Source History SDOH Alcohol Frequency [facility] History SDOH Alcohol Std Drinks [facility] History SDOH Alcohol Binge [facility] Exposure to SARS-CoV-2 (event) Not sure [facility] History of tobacco use Cigar Smoker [facility] Tobacco use and exposure 2019-08-02 00:00:00 2019-08-02 00:00:00 Never used [facility] Alcohol intake 2019-08-02 00:00:00 2019-08-02 00:00:00 Current drinker of alcohol (finding) [facility] Tobacco Comment 2018-02-04 00:00:00 2018-02-04 00:00:00 1 cigar a week for the past 1.5 years [facility] Alcohol Comment 2017-05-12 00:00:00 2017-05-12 00:00:00 socially [facility] Sex Assigned At 2000 00:00:00 2000 00:00:00 [facility] Smoking Status Start Date Stop Date Source Former smoker 2019-08-02 00:00:00 2019-08-02 00:00:00 [facility] Current some day smoker 2019-01-07 00:00:00 [facility] Medications Ordered Medication Name Filled Medication Name Start Date Stop Date Current Medication? Ordering Clinician Indication Dosage Frequency Signature (SIG) Comments Components Source HYDROcodone -acetaminop hen (NORCO 5) 5-325 mg tablet 1 tablet 03-06 08:30: 00 03-06 07:29 :00 No 1{tbl} 1 tablet, Oral, ONCE, 1 dose, On 03/06/21 at 0230, KEMI [facility] colchicine 0.6 mg tablet 03-06 00:00: 00 Yes [id number] Take 2 pills by mouth followed by 1 pill one hour after [facility] acetaminoph en-codeine 300-30 mg tablet 03-06 00:00: 00 Yes [id number] 1{tbl} Take 1 tablet by mouth every 4 (four) hours as needed for Pain (scale 7-10). Indication s: acute pain [facility] apixaban 5 mg tablet 08-25 00:00: 00 Yes [id number] 5mg Take 1 tablet by mouth 2 (two) times daily. Indication s: Treatment to Prevent Recurrence of a Clot in a Deep Vein [facility] apixaban 5 mg tablet 08-25 00:00: 00 Yes [id number] 5mg Take 1 tablet by mouth 2 (two) times daily. Indication s: Treatment to Prevent Recurrence of a Clot in a Deep Vein [facility] apixaban 5 mg tablet 08-25 00:00: 00 Yes [id number] 5mg Take 1 tablet by mouth 2 (two) times daily. Indication s: Treatment to Prevent Recurrence of a Clot in a Deep Vein [facility] apixaban 5 mg tablet 08-25 00:00: 00 Yes [id number] 5mg Take 1 tablet by mouth 2 (two) times daily. Indication s: Treatment to Prevent Recurrence of a Clot in a Deep Vein [facility] apixaban 5 mg tablet 08-25 00:00: 00 Yes [id number] 5mg Take 1 tablet by mouth 2 (two) times daily. Indication s: Treatment to Prevent Recurrence of a Clot in a Deep Vein [facility] apixaban 5 mg tablet 08-11 00:00: 00 08-04 00:00 :00 No [id number] 5mg Take 1 tablet by mouth 2 (two) times daily for 30 days. Indication s: Treatment to Prevent Recurrence of a Clot in a Deep Vein [facility] apixaban 5 mg tablet 08-11 00:00: 00 08-04 00:00 :00 No [id number] 5mg Take 1 tablet by mouth 2 (two) times daily. Indication s: Treatment to Prevent Recurrence of a Clot in a Deep Vein [facility] docusate (COLACE) capsule 100 mg 08-04 14:00: 00 Yes 100mg 100 mg, Oral, DAILY, First dose on Mon08/05/19 at 0900, Until Discontinu ed, Routine [facility] Polyethylen e Glycol 3350 (MIRALAX) powder 17 g 08-04 03:27: 00 08-04 05:15 :00 No 17g 17 g, Oral, ONCE, 1 dose, 08/04/19 at 2230, Routine [facility] melatonin (MELATIN) tablet 6 mg 08-04 02:41: 00 08-04 03:16 :00 No 6mg 6 mg, Oral, ONCE, 1 dose, 08/04/19 at 2145, Routine [facility] acetaminoph en-codeine 300-30 mg tablet 08-04 00:00: 00 Yes [id number] 1{tbl} Take 1 tablet by mouth every 4 (four) hours as needed (foot pain). [facility] acetaminoph en-codeine 300-30 mg tablet 08-04 00:00: 00 Yes [id number] 1{tbl} Take 1 tablet by mouth every 4 (four) hours as needed (foot pain). [facility] acetaminoph en-codeine 300-30 mg tablet 08-04 00:00: 00 Yes [id number] 1{tbl} Take 1 tablet by mouth every 4 (four) hours as needed (foot pain). [facility] acetaminoph en-codeine 300-30 mg tablet 08-04 00:00: 00 Yes [id number] 1{tbl} Take 1 tablet by mouth every 4 (four) hours as needed (foot pain). [facility] acetaminoph en-codeine 300-30 mg tablet 08-04 00:00: 00 03-06 00:00 :00 No [id number] [id number] 1{tbl} Take 1 tablet by mouth every 4 (four) hours as needed (foot pain). [facility] rivaroxaban (XARELTO) 15 mg tablet 08-04 00:00: 08-26 04:59 :00 No [id number] 15mg Take 1 tablet by mouth 2 (two) times daily for 21 days. Indication s: Treatment to Prevent Recurrence of a Clot in a Deep Vein [facility] rivaroxaban (XARELTO) 15 mg tablet 08-04 00:00: 08-26 04:59 :00 No [id number] 15mg Take 1 tablet by mouth 2 (two) times daily for 21 days. Indication s: Treatment to Prevent Recurrence of a Clot in a Deep Vein [facility] rivaroxaban (XARELTO) 15 mg tablet 08-04 00:00: 00 08-26 04:59 :00 No [id number] 15mg Take 1 tablet by mouth 2 (two) times daily for 21 days. Indication s: Treatment to Prevent Recurrence of a Clot in a Deep Vein [facility] apixaban 5 mg tablet 08-04 00:00: 00 08-04 00:00 :00 No [id number] 10mg Take 2 tablets by mouth 2 (two) times daily for 7 days. Indication s: Treatment to Prevent Recurrence of a Clot in a Deep Vein [facility] HYDROcodone -acetaminop hen (NORCO) 10-325 mg tablet 1 tablet 08-03 23:45: 14 Yes 1{tbl} 1 tablet, Oral, Q6HPRN, Starting 08/04/19 at 1845, Until Discontinu ed, Routine, Pain (scale 4-6) [facility] melatonin (MELATIN) tablet 6 mg 08-03 08:06: 00 08-03 08:16 :00 No 6mg 6 mg, Oral, ONCE, 1 dose, 08/04/19 at 0315, Routine [facility] lidocaine (LIDODERM) 5 % (700 mg/patch) patch 1 Patch 08-03 07:45: 00 08-03 18:39 :00 No 1{patch } 1 Patch, Topical, Administer over 12 Hours, ONCE, 1 dose, 08/04/19 at 0245, Routine [facility] acetaminoph en-codeine (TYLENOL #3) 300-30 mg tablet 1 tablet 08-02 20:14: 30 08-03 23:45 :01 No 1{tbl} 1 tablet, Oral, Q4HPRN, Starting 08/03/19 at 1514, Until 08/04/19 at 1845, Routine, Pain (scale 4-6) [facility] morpHINE injection 2 mg 08-02 05:57: 53 Yes 2mg 2 mg, Slow IV Push, Q4HPRN, Starting 08/03/19 at 0057, Until Discontinu ed, Routine, Pain (scale 7-10) [facility] enoxaparin (LOVENOX) injection 100 mg 08-02 01:45: 00 08-02 00:54 :42 No 1mg/kg 100 mg (rounded from 104.3 mg = 1 mg/kg ?104.3 kg), Subcutaneo us, ONCE, 1 dose, Mon08/02/19 at 2045, KEMI [facility] traMADol (ULTRAM) tablet 50 mg 08-02 01:18: 13 08-02 20:14 :50 No 50mg 50 mg, Oral, Q8HPRN, Starting Mon08/02/19 at 2018, Until 08/03/19 at 1514, Routine, Pain (scale 4-6) [facility] enoxaparin (LOVENOX) injection 100 mg 08-02 01:00: 00 Yes 1mg/kg 100 mg (rounded from 104.3 mg = 1 mg/kg ?104.3 kg), Subcutaneo us, Q12H, First dose on Mon08/02/19 at 2000, Until Discontinu ed, Routine [facility] iohexol (OMNIPAQUE 350 BULK-150 mL) injection 120 mL 08-01 23:16: 00 08-01 23:17 :00 No 120mL 120 mL, Intravenou s, ONCE, 1 dose, Mon08/02/19 at 1830, Routine [facility] traMADol 50 mg tablet 10-08 00:00: 00 Yes [id number] 50mg Take 1 tablet by mouth every 6 (six) hours as needed for Pain (scale 4-6). [facility] tra[facility] mg tablet 10-08 00:00: 00 Yes [id number] 50mg Take 1 tablet by mouth every 6 (six) hours as needed for Pain (scale 4-6). [facility] traMADol 50 mg tablet 10-08 00:00: 00 08-04 00:00 :00 No [id number] 50mg Take 1 tablet by mouth every 6 (six) hours as needed for Pain (scale 4-6). [facility] acetaminoph en-codeine 300-30 mg tablet 08-30 00:00: 00 Yes [id number] 1{tbl} Take 1 tablet by mouth every 4 (four) hours as needed (foot pain). [facility] acetaminoph en-codeine 300-30 mg tablet 08-30 00:00: 00 Yes [id number] 1{tbl} Take 1 tablet by mouth every 4 (four) hours as needed (foot pain). [facility] acetaminoph en-codeine 300-30 mg tablet 08-30 00:00: 00 Yes [id number] 1{tbl} Take 1 tablet by mouth every 4 (four) hours as needed (foot pain). [facility] acetaminoph en-codeine 300-30 mg tablet 08-30 00:00: 08-04 00:00 :00 No [id number] 1{tbl} Take 1 tablet by mouth every 4 (four) hours as needed (foot pain). [facility] cyclobenzap rine 10 mg tablet 08-13 00:00: 00 Yes [id number] 10mg Take 1 tablet by mouth 3 (three) times daily. [facility] cyclobenzap rine 10 mg tablet 08-13 00:00: 10-08 00:00 :00 No [id number] 10mg Take 1 tablet by mouth 3 (three) times daily. [facility] traMADOL (ULTRAM) 50 mg tablet 05-20 00:00: 00 Yes [id number] 50mg Take 1 tablet by mouth every 6 (six) hours as needed for Pain (scale 4-6). [facility] traMADOL (ULTRAM) 50 mg tablet 05-20 00:0010-08 00:00 :00 No [id number] 50mg Take 1 tablet by mouth every 6 (six) hours as needed for Pain (scale 4-6). [facility] apixaban 5 mg tablet 2017-02 00:00: 00 Yes 5mg Take 1 tablet by mouth 2 (two) times daily. [facility] cephALEXin (KEFLEX) 500 mg capsule 2017-02 00:00: 00 Yes 500mg Take 1 capsule by mouth 4 (four) times daily. [facility] apixaban 5 mg tablet 2017-02 00:00: 00 Yes 5mg Take 1 tablet by mouth 2 (two) times daily. [facility] cephALEXin (KEFLEX) 500 mg capsule 2017-02 00:00: 00 Yes 500mg Take 1 capsule by mouth 4 (four) times daily. [facility] apixaban 5 mg tablet 2017-02 00:00: 00 Yes 5mg Take 1 tablet by mouth 2 (two) times daily. [facility] cephALEXin (KEFLEX) 500 mg capsule 2017-02 00:00: 00 Yes 500mg Take 1 capsule by mouth 4 (four) times daily. [facility] apixaban 5 mg tablet 2017-02 00:00: 00 08-04 00:00 :00 No 5mg Take 1 tablet by mouth 2 (two) times daily. [facility] cephALEXin (KEFLEX) 500 mg capsule 2017-02 00:00: 00 08-04 00:00 :00 No 500mg Take 1 capsule by mouth 4 (four) times daily. [facility] apixaban 5 mg tablet 2017-02 00:00: 00 Yes 10mg Take 2 tablets by mouth 2 (two) times daily. [facility] apixaban 5 mg tablet 2017-02 00:00: 00 Yes 10mg Take 2 tablets by mouth 2 (two) times daily. [facility] apixaban 5 mg tablet 2017-02 00:00: 00 Yes 10mg Take 2 tablets by mouth 2 (two) times daily. [facility] apixaban 5 mg tablet 2017- 2-11 00:00: 00 08-04 00:00 :00 No 10mg Take 2 tablets by mouth 2 (two) times daily. [facility] Vital Signs Vital Name Observation Time Observation Value Geoff garcia Systolic blood pressure 2021-03-06 07:31:00 132 mm[Hg] [facility] Diastolic blood pressure 2021-03-06 07:31:00 89 mm[Hg] [facility] Heart rate 2021-03-06 07:31:00 105 /[facility] Body temperature 2021-03-06 06:03:00 37.67 Jennie [facility] Respiratory rate 2021-03-06 06:03:00 18 /min [facility] Body height 2021-03-06 06:03:00 170.2 cm [facility] Body weight 2021-03-06 06:03:00 102.513 kg [facility] BMI 2021-03-06 06:03:00 35.40 kg/m2 [facility] Oxygen saturation in Arterial blood by Pulse oximetry 2021-03-06 06:03:00 97 /min [facility] Heart rate 2019-08-05 15:50:00 108 /min [facility] Body temperature 2019-08-05 15:50:00 36.17 Jennie [facility] Respiratory rate 2019-08-05 15:50:00 18 /min [facility] Oxygen saturation in Arterial blood by Pulse oximetry 2019-08-05 15:50:00 94 /min [facility] Systolic blood pressure 2019-08-05 15:50:00 124 mm[Hg] [facility] Diastolic blood pressure 2019-08-05 15:50:00 80 mm[Hg] [facility] Body weight 2019-08-05 09:13:00 102.468 kg [facility] BMI 2019-08-05 09:13:00 38.78 kg/m2 [facility] Body height 2019-08-02 20:57:00 162.6 cm [facility] Systolic blood pressure 2018-10-08 19:00:00 128 mm[Hg] [facility] Diastolic blood pressure 2018-10-08 19:00:00 78 mm[Hg] [facility] Heart rate 2018-10-08 19:00:00 109 /min [facility] Respiratory rate 2018-10-08 19:00:00 20 /min [facility] Oxygen saturation in Arterial blood by Pulse oximetry 2018-10-08 19:00:00 97 /min [facility] Body temperature 2018-10-08 17:30:00 37.5 Jennie [facility] Body height 2018-10-08 17:30:00 165.1 cm [facility] Body weight 2018-10-08 17:30:00 97.523 kg [facility] BMI 2018-10-08 17:30:00 35.78 kg/m2 [facility] Procedures Procedure Date / Time Performed Performing Clinician Source NOTICE OF PRIVACY PRACTICES 2021-03-06 05:54:45 Doctor Unassigned, [place] [facility] CONSENT/REFUSAL FOR DIAGNOSIS AND TREATMENT 2021-03-06 05:54:27 Doctor Unassigned, [place] [facility] MEDICATION CORRESPONDENCE 2019-08-06 05:01:00 Do ctor Unassigned, [place] [facility] UNILATERAL VENOUS DUPLEX UPPER BY VASCULAR LAB 2019-08-05 15:42:25 [facility] XR ELBOW <3 VW RIGHT 2019-08-04 15:40:55 Donaldo Smith [facility] BASIC METABOLIC PANEL (NA, K, CL, CO2, GLUCOSE, BUN, CREATININE, CA) 2019-08-03 08:41:00 Irma Jennings [facility] COVID-19 (ID NOW RAPID TESTING) 2019-08-03 00:53:00 Katja Saez [facility] EKG-12 LEAD 2019-08-03 00:39:[address] [facility] CT CHEST PULMONARY ANGIOGRAM 2019-08-02 23:25:53 Katja Saez [facility] UNILATERAL VENOUS DUPLEX LOWER EXTREMITY BY VASCULAR LAB 2019-08-02 21:43:52 Katja Saez [facility] COMP. METABOLIC PANEL ([id number]) 2019-08-02 21:41:00 Ktaja Saez [facility] CBC WITH DIFFERENTIAL 2019-08-02 21:41:00 Katja Saez [facility] EKG-12 LEAD 2019-08-02 21:33:27 Katja Saez [facility] NOTICE OF PRIVACY PRACTICES 2019-08-02 21:24:25 Doctor Unassigned, [place] [facility] CONSENT/REFUSAL FOR DIAGNOSIS AND TREATMENT 2019-08-02 20:53:33 Doctor Unassigned, [place] [facility] XR ELBOW <3 VW RIGHT 2018-10-08 18:45:13 Vianey Wiggins [facility] XR SHOULDER 2+ VW RIGHT 2018-10-08 18:45:13 Von Wiggins [facility] CONSENT/REFUSAL FOR DIAGNOSIS AND TREATMENT 2018-10-08 17:13:21 Doctor Unassigned, [place] [facility] Encounters Start Date/Time End Date/Time Encounter Type Admission Type Attending [facility] Facility Care Department Encounter ID Source 2021-03-06 00:29:00 2021-03-06 01:37:00 Emergency X VIANEY WIGGINS [facility] ERT [id number] [facility] 2021-03-06 00:29:00 2021-03-06 01:37:00 Emergency Vianey Wiggins [facility] 1..114 350.1.13.10 4.2.7.2.686 [id number] [facility] 2020-08-29 00:00:00 2020-08-29 00:00:00 Nurse Triage Laura Sanders [facility] 1..114 350.1.13.10 4.2.7.2.686 [id number] [facility] 2019-08-07 00:00:00 2019-08-07 00:00:00 Transition of Care Ana Maria Zhang 1.2840.114 350.1.13.10 4.2.7.2.686 [id number] [facility] 2019-08-06 00:00:00 2019-08-06 00:00:00 Orders Only Doctor Unassigned, [place] [facility] [id number] 350.1.13.10 4.2.7.2.686 [id number] [facility] 2019-08-02 15:59:29 2019-08-05 13:35:00 Inpatient X IRMA JENNINGS [facility] [id number] [facility] 2019-08-02 15:59:29 2019-08-05 13:35:00 Hospital Encounter Katja Saez [facility] [id number] 350.1.13.10 4.2.7.2.686 [id number] [facility] 2019-08-02 00:00:00 2019-08-02 00:00:00 Orders Only Doctor Unassigned, [place] [facility] 1.2.840.114 350.1.13.10 4.2.7.2.686 [id number] [facility] 2018-10-08 12:31:39 2018-10-08 14:41:00 Emergency Vianey Wiggins [facility] [id number] 350.1.13.10 4.2.7.2.686 [id number] [facility] 2018-10-08 00:00:00 2018-10-08 00:00:00 Orders Only Doctor Unassigned, [place] [facility] [id number] 350.1.13.10 4.2.7.2.686 [id number] [facility] Results Test Description Test Time Test Comments Results Resul t Comments Source XR ELBOW <3 VW RIGHT 7 18:27:55 Questionable epitrochlear lymphadenopathy. No acute bony abnormality. Mild swelling. EXAM: XR [...] NQuestionable epitrochlear lymphadenopathy.No acute bony abnormality.[facility]ild swelling[facility]2019-08-03 01:47:00* Test Item Value Reference Range Interpretation Comme nts SARS-CoV-2 Rapid ID NOW (test code = 87538-4) Not Detected Not Detected SARAH (test code = SARAH) ID NOW COVID-19 As say is an isothermal nucleic acid amplification test intended for the qualitative detection of nucleic acid from SARS-CoV-2 viral RNA in nasopharyngeal (CLINICAL TRIAL COORDINATOR) specimens. It is used under Emergency Use [...] patient testing if clinically indicated. Lab Interpretation (test code = 37256-3) [facility] [id number] 23:52:461. ?No acute pulmonary embolism. 2. ?Minimal nonspecific air is seen in bilateral glenohumeral articulations(4:32 and 51). Preliminary Report Dictated by Resident: Kaity Lopez ?MD Purnima., have reviewed this study and agree with [...] define anatomy and possible pathology. ? (DFOV = 40 cm) FINDINGS: PULMONARY ARTERIES: Enhancement is appropriate for evaluation. No acute pulmonary embolism isidentified. CHEST: Lower neck/thyroid: Unremarkable. Lungs: Normal. Central airway:Unremarkable. Pleura: No pleural effusion, thickening or pneumothorax. Thoracic aorta and great vessels: ?Normal in diameter. Heart and pericardium: No detectable coronary arterial calcification.Unremarkable cardiac morphology and pericardium. Lymph nodes: No enlarged thoracic lymph nodes. Mediastinum: Unremarkable. Thoracic spine and chest wall: Minimal nonspecific air is seen in bilateralglenohumeral articulations (4:32 and 51). Other Lines/Tubes/Devices/Hardware: None Visualized [...] cm)FINDINGS:PULMONARY ARTERIES: Enhancement is appropriate for evaluation. No acute pulmonary embolism isidentified.CHEST:Lower neck/thyroid: Unremarkable.Lungs: Normal.Central airway: Unremarkable.Pleura: No pleural effusion, thickening or pneumothorax.Thoracic aorta and great vessels: Normal in diameter.Heart and pericardium: No detectable coronary arterial calcification.Unremarkable cardiac morphology and pericardium.Lymph nodes: No enlarged thoracic lymph nodes.Mediastinum: Unremarkable.Thoracic spine and chest wall: Minimal nonspecific air is seenin bilateralglenohumeral articulations (4:32 and 51).Other Lines/Tubes/Devices/Hardware: NoneVisualized upper abdomen: Unremarkable. IMPRESSION1. No acute pulmonary embolism.2. Minimal nonspecific air is seen in bilateral glenohumeral articulations(4:32 and 51).Preliminary Report Dictated by Resident: Kaity Horowitz MD., have reviewed this study and agree with theabove report.[facility]. METABOLIC PANEL ([id number]) 2019-08-02 22:39:00* Test Item Value Reference Range Interpretation Comme nts NA (test code = 5945367439) 138 mmol/L 135-145 K (test code = 2713398534) 4.5 mmol/L 3.5-5 CL (test code = 3340115377) 101 mmol/L 98-108 CO2 TOTAL (test code = 0480362103) 29 mmol/L 23-31 AGAP (test code = 0383371296) 2-16 BUN (test code = 4674416278) 10 mg/dL 7-23 GLUCOSE (test code = 6599193019) 103 mg/dL 70-110 CREATININE (test code = 4756550478) 0.61 mg/dL 0.6-1.25 TOTAL BILI (test code = 3594412749) 0.9 mg/dL 0.1-1.1 CALCIUM (test code = 5318135188) 10.4 mg/dL 8.6-10.6 T PROTEIN (test code = 0246296132) 8.9 g/dL 6.3-8.2 H ALBUMIN (test code = 9138486640) 5.0 g/dL 3.5-5 ALK PHOS (test code = 8270166329) 84 U/L 34-122 ALTv (test code = 1742-6) 185 U/L 5-50 H AST(SGOT) (test code = 8593729398) 71 U/L 13-40 H eGFR Calculation (Non-) (test code = 7192384826) mL/min/1.73m2 eGFR Calculation () (test code = 7568850692) mL/min/1.73m2 SARAH (test code = SARAH) Association of [...] imaging tests). Lab Interpretation (test code = 21919-4) Abnormal [facility] WITH [id number] 21:53:00* Test Item Value Reference Range Interpretation Comme nts WBC (test code = 6690-2) See_Comment H [Automated [employer]] The system which generated this result transmitted reference range: 4.20 - 10.70 10*3/?L. The reference range was not used to interpret this result as normal/abnormal. RBC (test code = 789-8) See_Comment [Automated [employer]] The system which generated this result transmitted reference range: 4.26 - 5.52 10*6/?L. The reference range was not used to interpret this result as normal/abnormal. HGB (test code = 718-7) 16.0 g/dL 12.2-16.4 HCT (test code = 4544-3) 45.3 % 38.4-49.3 MCV (test code = 787-2) 95.0 fL 81.7-95.6 MCH (test code = 785-6) 33.5 pg 26.1-32.7 H MCHC (test code = 786-4) 35.3 g/dL 31.2-35 H RDW-SD (test code = 01763-0) 41.3 fL 38.5-51.6 RDW-CV (test code = 788-0) 11.8 % 12.1-15.4 L PLT (test code = 777-3) See_Comment [Automated messa ge] The system which generated this result transmitted reference range: 150 - 328 10*3/?L. The reference range was not used to interpret this result as normal/abnormal. MPV (test code = 83211-1) 10.3 fL 9.8-13 NRBC/100 WBC (test code = 8639575642) See_Comment [Automated [employer]Ywindow ssage] The system which generated this result transmitted reference range: 0.0 - 10.0 /100 WBCs. The reference range was not used to interpret this result as normal/abnormal. NRBC x10^3 (test code = 1237584582) <0.01 See_Comment [Automated messa ge] The system which generated this result transmitted reference range: 10*3/?L. The reference range was not used to interpret this result as normal/abnormal. GRAN MAT (NEUT) % (test code = 770-8) 57.3 % IMM GRAN % (test code = 3141569233) 0.40 % LYMPH % (test code = 736-9) 30.2 % MONO % (test code = 5905-5) 8.9 % EOS % (test code = 713-8) 2.6 % BASO % (test code = 706-2) 0.6 % GRAN MAT x10^3(ANC) (test code = 1698606789) 6.53 10*3/uL 1.99-6.95 IMM GRAN x10^3 (test code = 7074103067) 0.05 10*3/uL 0-0.06 LYMPH x10^3 (test code = 731-0) 3.45 10*3/uL 1.09-3.23 H MONO x10^3 (test code = 742-7) 1.02 10*3/uL 0.36-1.02 EOS x10^3 (test code = 711-2) 0.30 10*3/uL 0.06-0.53 BASO x10^3 (test code = 704-7) 0.07 10*3/uL 0.01-0.09 Lab Interpretation (test code = 30136-4) [facility]normal [facility] VW [id number] 18:50:46No acute osseous abnormality. EXAM: XR ELBOW <3 [...] joint. No soft tissue abnormality is seen. [facility], Radiant Results Inft User - 10/08/2018 [...] abnormality.[facility]3 VW RIGHT 2018-10-08 18:50:46No acute osseous abnormality. EXAM: XR ELBOW <3 VW RIGHT, XR SHOULDER 2+ VW RIGHT HISTORY: 18 years-old Male right elbow pain COMPARISON: None. FINDINGS: Radiographs of the right shoulder demonstrate no acute fracture ordislocation. The joint spaces are maintained. No soft tissue abnormality kamryn en. Radiographs of the right elbow demonstrate no acute fracture ordislocation. The joint spaces are maintained. Osteophytosis is noted at theulnotrochlear joint. No soft tissue abnormality is seen. [facility], Radiant Results Inft User - 10/08/2018 [...] abnormality.[facility]"
--- NOTE | 2023-02-23 09:00 | EDPHYS ---
Physician Documentation [facility] Name: Triston Ballard Age: 22 yrs Sex: Male : 2000 Arrival Date: 02/23/2023 Time: 08:05 Bed 15 Private MD: ED Physician Raul Burrell HPI: 02/23 09:59 This 22 yrs old Male presents to ER via Ambulatory with complaints of Gout. kdr 09:59 Patient presents to the ED complaining of pain to both lower extremities and feet. kdr Primarily on the right side though. Patient had similar symptoms multiple times before. He has had multiple ED visits secondary to the flare of his gout. Patient denies any new aspect of his presentation today he denies fever chills, nausea or vomiting. Patient states that he has been out of his allopurinol and colchicine for about 2 weeks. Patient's not emergent appearing and does not require acute intervention. Onset: The symptoms/episode began/occurred gradually, 3 day(s) ago. Severity of symptoms: At their worst the symptoms were mild in the emergency department the symptoms are unchanged. The patient has experienced similar episodes in the past, multiple times, chronically. The patient has not recently seen a physician. Historical: - Allergies: 08:18 NKA; hb - Home Meds: 08:18 allopurinol 300 mg Oral tablet daily [Active]; hb - PMHx: 08:18 blood clot in R leg; Gout; Headaches; hb - Immunization history:: Adult Immunizations up to date. - Social history:: Smoking status: Patient denies any tobacco usage or history of. ROS: 09:59 Constitutional: Negative for fever, chills, and weight loss, Eyes: Negative for injury, kdr pain, redness, and discharge, Neck: Negative for injury, pain, and swelling, Cardiovascular: Negative for chest pain, palpitations, and edema, Respiratory: Negative for shortness of breath, cough, wheezing, and pleuritic chest pain, Abdomen/GI: Negative for abdominal pain, nausea, vomiting, diarrhea, and constipation, Back: Negative for injury and pain, : Negative for injury, bleeding, discharge, and swelling, Skin: Negative for injury, rash, and discoloration, Neuro: Negative for headache, weakness, numbness, tingling, and seizure activity. Psych: Negative for depression, anxiety, suicide ideation, homicidal ideation, and hallucinations, Allergy/Immunology: Negative for hives, rash, and allergies, Endocrine: Negative for neck swelling, polydipsia, polyuria, polyphagia, and marked weight changes, Hematologic/Lymphatic: Negative for swollen nodes, abnormal bleeding, and unusual bruising, 09:59 MS/extremity: Positive for pain, of the right foot and left foot, Exam: 09:59 Constitutional: This is a well developed, well nourished patient who is awake, alert, kdr and in no acute distress. Head/Face: Normocephalic, atraumatic. Eyes: Pupils equal round and reactive to light, extra-ocular motions intact. Lids and lashes normal. Conjunctiva and sclera are non-icteric and not injected. Cornea within normal limits. Periorbital areas with no swelling, redness, or edema. Neck: Trachea midline, no thyromegaly or masses palpated, and no cervical lymphadenopathy. Supple, full range of motion without nuchal rigidity, or vertebral point tenderness. No Meningismus. Chest/axilla: Normal chest wall appearance and motion. Nontender with no deformity. No lesions are appreciated. Cardiovascular: Regular rate and rhythm with a normal S1 and S2. No gallops, murmurs, or rubs. Normal PMI, no JVD. No pulse deficits. Respiratory: Lungs have equal breath sounds bilaterally, clear to auscultation and percussion. No rales, rhonchi or wheezes noted. No increased work of breathing, no retractions or nasal flaring. Abdomen/GI: Soft, non-tender, with normal bowel sounds. No distension or tympany. No guarding or rebound. No evidence of tenderness throughout. Back: No spinal tenderness. No costovertebral tenderness. Full range of motion. Skin: Warm, dry with normal turgor. Normal color with no rashes, no lesions, and no evidence of cellulitis. Psych: Awake, alert, with orientation to person, place and time. Behavior, mood, and affect are within normal limits. Vital Signs: 08:16 BP 128 / 100; Pulse 110; Resp 18; Temp 98.4; Pulse Ox 99% on R/A; Weight 102.06 kg; hb Height 5 ft. 6 in. ; Pain 9/10; 09:10 BP 118 / 98; Pulse 100; Resp 18; Temp 98; Pulse Ox 99% on R/A; ph 08:16 Body Mass Index 36.32 (102.06 kg, 167.64 cm) hb 08:16 Pain Scale: Adult hb MDM: 08:59 Patient medically screened. kdr 09:59 Data reviewed: vital signs, nurses notes. kdr Administered Medications: 08:40 Drug: Hydrocodone-Acetaminophen PO (7.5 mg-325 mg) 1 tabs PO once Route: PO; ph 09:19 Follow up: Response: No adverse reaction ph 08:40 Drug: Colchicine-Probenecid PO 1 tabs PO once Route: PO; ph 09:19 Follow up: Response: No adverse reaction ph 08:40 Drug: predniSONE PO 60 mg PO once Route: PO; ph 09:19 Follow up: Response: No adverse reaction ph Disposition Summary: 02/23/23 08:59 Discharge Ordered Notes: Location: Home kdr Problem: an acute exacerbation kdr Symptoms: have improved kdr Condition: Stable kdr Diagnosis - Gout, unspecified kdr - Idiopathic gout, left ankle and foot kdr - Idiopathic gout, right ankle and foot kdr Followup: kdr - With: Private Physician - When: 2 - 3 days - Reason: If symptoms return, Further diagnostic work-up, Recheck today's complaints, Continuance of care, Re-evaluation by your physician Discharge Instructions: - Discharge Summary Sheet kdr - Low-Purine Eating Plan kdr - Gout, [id number] kdr Forms: - Medication Reconciliation Form kdr - Thank You Letter kdr - Prescription Opioid Use kdr - Patient Portal Instructions kdr - Leadership Thank You Letter kdr Prescriptions: - acetaminophen-codeine 300-30 mg Oral tablet - take 1 tablet ORAL route every 6 hours; 10 tablet; Refills: 0, Product kdr Selection Permitted - colchicine 0.6 mg Oral tablet - take 2 tablet ORAL route once daily As needed; 20 tablet; Refills: 0, Product kdr Selection Permitted - indomethacin 50 mg Oral capsule - take 1 capsule ORAL route 3 times per day As needed administer with food or kdr milk, taper off to discontinue; 15 capsule; Refills: 0, Product Selection Permitted - Medrol (Eric) 4 mg Oral Tablets, Dose Pack - take 1 tablet ORAL route as directed - follow package instructions; 1 packet; kdr Refills: 0, Product Selection Permitted Signatures: Raul Burrell MD MD kdr Sushma Loera RN RN ph Franny Scanlon, RN RN hb
--- NOTE | 2023-02-23 09:00 | ER ---
Nurse's Notes [facility] Name: Triston Ballard Age: 22 yrs Sex: Male : 2000 Arrival Date: 02/23/2023 Time: 08:05 Bed 15 Private MD: Diagnosis: Gout, unspecified;Idiopathic gout, left ankle and foot;Idiopathic gout, right ankle and foot Presentation: 02/23 08:16 Chief complaint: Gout flare up x 3 days, c/o pain in bilateral knees and feet, left hb elbow, and left hand. Out of his allopurinol and colchicine. Coronavirus screen: At this time, the client does not indicate any symptoms associated with coronavirus-19. Ebola Screen: No symptoms or risks identified at this time. Initial Sepsis Screen: Does the patient meet any 2 criteria? No. Patient's initial sepsis screen is negative. Does the patient have a suspected source of infection? No. Patient's initial sepsis screen is negative. Risk Assessment: Do you want to hurt yourself or someone else? Patient reports no desire to harm self or others. Onset of symptoms was February 21, 2023. 08:16 Method Of Arrival: Ambulatory hb 08:16 Acuity: JULIANNE 3 hb Historical: - Allergies: 08:18 NKA; hb - Home Meds: 08:18 allopurinol 300 mg Oral tablet daily [Active]; hb - PMHx: 08:18 blood clot in R leg; Gout; Headaches; hb - Immunization history:: Adult Immunizations up to date. - Social history:: Smoking status: Patient denies any tobacco usage or history of. Screenin:25 [facility] ED Fall Risk Assessment (Adult) History of falling in the last 3 months, ph including since admission No falls in past 3 months (0 pts) Confusion or Disorientation No (0 pts) Intoxicated or Sedated No (0 pts) Impaired Gait Yes (1 pt) Mobility Assist Device Used Yes (1 pt) Altered Elimination No (0 pt) Score/Fall Risk Level 0 - 2 = Low Risk Oriented to surroundings, Maintained a safe environment, Provided non-skid footwear, Hourly rounding (assess needs \T\ fall precautionary measures) done. Abuse screen: Denies threats or abuse. Denies injuries from another. Nutritional screening: No deficits noted. Tuberculosis screening: Assessment: 09:09 General: Appears in no apparent distress. Behavior is calm, cooperative, appropriate ph for age. Pain: Complains of pain in right hand, left hand, right foot and left foot. Neuro: Level of Consciousness is awake, alert, obeys commands, Oriented to person, place, time, situation. Derm: Skin is pink, warm \T\ dry. Vital Signs: 08:16 BP 128 / 100; Pulse 110; Resp 18; Temp 98.4; Pulse Ox 99% on R/A; Weight 102.06 kg; hb Height 5 ft. 6 in. ; Pain 9/10; 09:10 BP 118 / 98; Pulse 100; Resp 18; Temp 98; Pulse Ox 99% on R/A; ph 08:16 Body Mass Index 36.32 (102.06 kg, 167.64 cm) hb 08:16 Pain Scale: Adult hb ED Course: 08:06 Patient arrived in ED. mr 08:09 Raul Burrell MD is Attending Physician. kdr 08:13 Sushma Loera, RN is Primary Nurse. ph 08:18 Triage completed. hb 08:18 Arm band placed on. hb 08:25 Patient has correct armband on for positive identification. Bed in low position. Call ph light in reach. Side rails up X 1. Door closed. Noise minimized. 09:10 No provider procedures requiring assistance completed. Patient did not have IV access ph during this emergency room visit. Administered Medications: 08:40 Drug: Hydrocodone-Acetaminophen PO (7.5 mg-325 mg) 1 tabs PO once Route: PO; ph 09:19 Follow up: Response: No adverse reaction ph 08:40 Drug: Colchicine-Probenecid PO 1 tabs PO once Route: PO; ph 09:19 Follow up: Response: No adverse reaction ph 08:40 Drug: predniSONE PO 60 mg PO once Route: PO; ph 09:19 Follow up: Response: No adverse reaction ph Medication: 08:25 VIS not applicable for this client. ph Outcome: 08:59 Discharge ordered by . kdr 09:20 Discharged to home ambulatory, ph 09:20 Condition: good 09:20 Discharge instructions given to patient, Instructed on discharge instructions, follow up and referral plans. medication usage, Demonstrated understanding of instructions, follow-up care, medications, Prescriptions given X 4, 09:20 Patient left the ED. ph Signatures: Raul Burrell MD MD [facility] Emma Lewis, Reg Reg mr Sushma Loera, RN RN ph Franny Scanlon RN RN hb
[2023-02-23 10:32] VITALS: O2SAT 99
[2023-02-23 10:55] VITALS: BP 118/98; TEMP 98
== END ==
LOC: ER 08:05
DX: M10.072 Idiopathic gout, left ankle and foot (principal); M10.071 Idiopathic gout, right ankle and foot; M10.9 Gout, unspecified
CPT/HCPCS: 99283; J7512

== ENCOUNTER 2023-07-27 00:18 | Emergency (ER) | payer SELFPAY ==
[2023-07-27] MEDS ORDERED: predniSONE 20 MG TAB ONE (01:27)
[2023-07-27] MEDS ORDERED: KETOROLAC 30 MG/ML INJ ONE (01:28)
[2023-07-27] MEDS ORDERED: HYDROCODONE/APAP 10/325 TAB ONE (01:28)
--- NOTE | 2023-07-27 03:27 | ER ---
Nurse's Notes [facility] Name: Triston Ballard Age: 23 yrs Sex: Male : 2000 Arrival Date: 07/27/2023 Time: 00:18 Bed 10 Private MD: Diagnosis: Gout, unspecified;Acute right hand contusion, acute right hand inflammatory arthritis Presentation: 07/26 01:04 Chief complaint: Patient states: right wrist pain s/p fall in shower reports may be kl gout. Coronavirus screen: Vaccine status: Patient reports receiving the 2nd dose of the covid vaccine. Ebola Screen: Patient negative for fever greater than or equal to 101.5 degrees Fahrenheit, and additional compatible Ebola Virus Disease symptoms. Initial Sepsis Screen: Does the patient meet any 2 criteria? No. Patient's initial sepsis screen is negative. Does the patient have a suspected source of infection? No. Patient's initial sepsis screen is negative. Risk Assessment: Do you want to hurt yourself or someone else? Patient reports no desire to harm self or others. Onset of symptoms was July 25, 2023. 01:04 Method Of Arrival: Ambulatory 01:04 Acuity: JULIANNE 4 kl Triage Assessment: 01:06 General: Appears uncomfortable, Behavior is calm, cooperative. Pain: Complains of pain kl in right hand Pain currently is 8 out of 10 on a pain scale. Musculoskeletal: Capillary refill < 3 seconds, Range of motion: Swelling present in right hand. Historical: - Allergies: 01:05 NKA; kl - PMHx: 01:05 blood clot in R leg; Gout; Headaches; kl - PSHx: 01:05 None; kl - Immunization history:: Adult Immunizations not immunized. - Infectious Disease History:: Denies. - Social history:: Smoking status: Patient reports the use of cigarette tobacco products, smokes one-half pack cigarettes per day. - Family history:: not pertinent. Screenin:35 [facility] ED Fall Risk Assessment (Adult) History of falling in the last 3 months, kl including since admission No falls in past 3 months (0 pts) Confusion or Disorientation No (0 pts) Intoxicated or Sedated No (0 pts) Impaired Gait No (0 pts) Mobility Assist Device Used No (0 pt) Altered Elimination No (0 pt) Score/Fall Risk Level 0 - 2 = Low Risk Oriented to surroundings, Maintained a safe environment. Abuse screen: Denies threats or abuse. Nutritional screening: No deficits noted. Tuberculosis screening: No symptoms or risk factors identified. Assessment: 01:35 Reassessment: see triage assessment. Vital Signs: 01:04 BP 131 / 85; Pulse 58; Resp 16; Temp 98(O); Pulse Ox 100% on R/A; Weight 98.88 kg (R); kl Height 5 ft. 6 in. ; Pain 8/10; 01:04 Body Mass Index 35.19 (98.88 kg, 167.64 cm) kl 01:04 Pain Scale: Adult [place] Coma Score: 06:01 Eye Response: spontaneous(4). Motor Response: obeys commands(6). Verbal Response: sp4 oriented(5). Total: 15. ED Course: 00:21 Patient arrived in ED. im 00:42 Jorge Palacio MD is Attending Physician. sp4 01:05 Triage completed. kl 01:31 Hand Right 3 View XRAY In Process Unspecified. EDMS 01:36 Patient has correct armband on for positive identification. Bed in low position. Call kl light in reach. Provided Education on: medication. Door closed. Noise minimized. Lights dimmed. Warm blanket given. 01:36 No provider procedures requiring assistance completed. Patient did not have IV access kl during this emergency room visit. 01:59 No apparent distress. Resting quietly. Appears to be sleeping. Awaiting radiology kl results. Administered Medications: 01:35 Drug: Ketorolac IM 60 mg IM once Route: IM; Site: right vastus lateralis; kl 01:59 Follow up: Response: No adverse reaction kl 01:35 Drug: [place] PO 10 mg-325 mg 1 tabs PO once Route: PO; kl 01:59 Follow up: Response: No adverse reaction kl 01:35 Drug: predniSONE PO 60 mg PO once Route: PO; kl 01:59 Follow up: Response: No adverse reaction Medication: 03:56 VIS not applicable for this client. vc1 Outcome: 03:26 Discharge ordered by . sp4 03:56 Discharged to home ambulatory, vc1 03:56 Condition: good 03:56 Discharge instructions given to patient, Instructed on discharge instructions, follow up and referral plans. medication usage, Demonstrated understanding of instructions, follow-up care, medications, Prescriptions given X 2, 03:56 Patient left the ED. vc1 Signatures: Dispatcher [employer] EDDaily Lawton RN RN kl Cal[place], Vanessa, RN RN vc1 Jorge Palacio MD MD sp4 Luna Edwards
--- NOTE | 2023-07-27 03:27 | EDPHYS ---
Physician Documentation [facility] Name: Triston Ballard Age: 23 yrs Sex: Male : 2000 Arrival Date: 07/27/2023 Time: 00:18 Bed 10 Private MD: ED Physician Jorge Palacio HPI: 07/26 00:42 This 23 yrs old Male presents to ER via Unassigned with complaints of Hand sp4 Injury - 07/25/23. 01:00 23-year-old male presents with right hand pain starting 2 days ago after he fell in the sp4 shower.. 06:01 Patient states he also has history of gout and he suspects gout flare in the right sp4 hand.. Historical: - Allergies: 01:05 NKA; kl - PMHx: 01:05 blood clot in R leg; Gout; Headaches; kl - PSHx: 01:05 None; kl - Immunization history:: Adult Immunizations not immunized. - Infectious Disease History:: Denies. - Social history:: Smoking status: Patient reports the use of cigarette tobacco products, smokes one-half pack cigarettes per day. - Family history:: not pertinent. ROS: 06:01 Constitutional: Negative for fever, chills, and weight loss, Eyes: Negative for injury, sp4 pain, redness, and discharge, ENT: Negative for injury, pain, and discharge, Neck: Negative for injury, pain, and swelling, Cardiovascular: Negative for chest pain, palpitations, and edema, Respiratory: Negative for shortness of breath, cough, wheezing, and pleuritic chest pain, Abdomen/GI: Negative for abdominal pain, nausea, vomiting, diarrhea, and constipation, Back: Negative for injury and pain, : Negative for injury, bleeding, discharge, and swelling, 06:01 All other systems are negative, Exam: 06:01 Constitutional: This is a well developed, well nourished patient who is awake, alert, sp4 and in no acute distress. Head/Face: Normocephalic, atraumatic. Eyes: Pupils equal round and reactive to light, extra-ocular motions intact. Lids and lashes normal. Conjunctiva and sclera are not injected. Cornea within normal limits. Periorbital areas with no swelling, redness, or edema. ENT: Nares patent. No nasal discharge, no septal abnormalities noted. Tympanic membranes are normal and external auditory canals are clear. Oropharynx with no redness, swelling, or masses, exudates, or evidence of obstruction, uvula midline. Mucous membranes moist. Neck: Trachea midline, no thyromegaly or masses palpated, and no cervical lymphadenopathy. Supple, full range of motion without nuchal rigidity, or vertebral point tenderness. Chest/axilla: Normal chest wall appearance and motion. Nontender with no deformity. No lesions are appreciated. Cardiovascular: Regular rate and rhythm with a normal S1 and S2. No gallops, murmurs, or rubs. Normal PMI, no JVD. No pulse deficits. Respiratory: Lungs have equal breath sounds bilaterally, clear to auscultation and percussion. No rales, rhonchi or wheezes noted. No increased work of breathing, no retractions or nasal flaring. Abdomen/GI: Soft, with normal bowel sounds. No distension or tympany. No guarding or rebound. No evidence of tenderness throughout. Back: No spinal tenderness. No costovertebral tenderness. Skin: Warm, dry with normal turgor. Normal color with no rashes, no lesions, and no evidence of cellulitis. MS/ Extremity: Pulses equal, no cyanosis. Neurovascular intact. Full, normal range of motion. Positive right hand swelling and tenderness without deformity. Without redness or signs of septic joint Neuro: Awake and alert, GCS 15, oriented to person, place, time, and situation. Cranial nerves II-XII grossly intact. Motor strength 5/5 in all extremities. Sensory grossly intact. Psych: Awake, alert, with orientation to person, place and time. Behavior, mood, and affect are within normal limits Vital Signs: 01:04 BP 131 / 85; Pulse 58; Resp 16; Temp 98(O); Pulse Ox 100% on R/A; Weight 98.88 kg (R); kl Height 5 ft. 6 in. ; Pain 8/10; 01:04 Body Mass Index 35.19 (98.88 kg, 167.64 cm) 01:04 Pain Scale: Adult Bureau Coma Score: 06:01 Eye Response: spontaneous(4). Motor Response: obeys commands(6). Verbal Response: sp4 oriented(5). Total: 15. Procedures: 06:04 Splinting: Splint applied to right wrist, right hand and palmar aspect of right forearm sp4 using wrist splint, Velcro wrist splint. applied by tech. Examined by me, post splint application: neurovascular intact, 2+ distal pulses palpable, brisk capillary refill noted, Patient tolerated well, Advised to wear wrist splint for the next 2 weeks.. MDM: 00:52 Patient medically screened. sp4 03:21 ED course: EXAM: XR Right Hand Complete, 3 Views CLINICAL HISTORY: swelling, pain sp4 TECHNIQUE: Frontal, lateral and oblique views of the right hand. COMPARISON: No relevant prior studies available. FINDINGS: Bones/joints: Well-corticated deformities with mild flattening and osseous beaking involving the second and fifth metacarpal heads an which may in part be related to remote trauma. Mild narrowing of the fifth metacarpophalangeal articulation. No acute fracture. No dislocation. Soft tissues: Dorsal soft tissue swelling. No radiopaque foreign body. IMPRESSION: Dorsal soft tissue swelling. No acute fracture. Electronically signed by: Genevieve Wakefield MD 07/27/2023 02:41 AM . 06:01 Differential diagnosis: dislocation, closed fracture, contusion, abrasion, tendonitis. sp4 Data reviewed: vital signs, nurses notes, radiologic studies, plain films. ED course: Right Velcro wrist splint applied. This is applied for comfort. Patient stable for discharge home with p.o. prednisone as needed pain meds a well. . 07/26 00:59 Order name: Hand Right 3 View XRAY sp4 Administered Medications: 01:35 Drug: Ketorolac IM 60 mg IM once Route: IM; Site: right vastus lateralis; kl 01:59 Follow up: Response: No adverse reaction kl 01:35 Drug: [place] PO 10 mg-325 mg 1 tabs PO once Route: PO; kl 01:59 Follow up: Response: No adverse reaction kl 01:35 Drug: predniSONE PO 60 mg PO once Route: PO; kl 01:59 Follow up: Response: No adverse reaction kl Disposition Summary: 07/27/23 03:26 Discharge Ordered Notes: Location: Home sp4 Problem: new sp4 Symptoms: have improved sp4 Condition: Stable sp4 Diagnosis - Gout, unspecified sp4 - Acute right hand contusion, acute right hand inflammatory arthritis sp4 Followup: sp4 - With: Private Physician - When: 7 - 10 days - Reason: Recheck today's complaints Discharge Instructions: - Discharge Summary Sheet sp4 - Gout sp4 Forms: - Prescription Opioid Use sp4 Prescriptions: - Ibuprofen 800 mg Oral Tablet - take 1 tablet ORAL route every 8 hours As needed take with food; 30 tablet; sp4 Refills: 0, Product Selection Permitted - Tramadol 50 mg Oral Tablet - take 1 tablet ORAL route every 8 hours as needed; 12 tablet; Refills: 0, sp4 Product Selection Permitted - Prednisone 20 mg Oral Tablet - take 2 tablets ORAL route once daily for 5 days; 10 tablet; Refills: 0, Product sp4 Selection Permitted Signatures: Dispatcher [employer] Daily Roque RN RN kl Potepalov, Sergey, MD MD sp4 Corrections: (The following items were deleted from the chart) 01:00 01:00 Wrist Right 3 View+[email or web address] ordered. MICKEY AREVALO
[2023-07-27 04:19] VITALS: BP 131/85; TEMP 98; O2SAT 100
--- NOTE | 2023-07-27 11:31 | RAD REPORT ---
EXAM DESCRIPTION: RAD - Hand Right 3 View - 07/27/2023 1:30 am CLINICAL HISTORY: Swelling, pain TECHNIQUE: Frontal, lateral and oblique views of the right hand. COMPARISON: No relevant prior studies available. FINDINGS: Bones/joints: Well-corticated deformities with mild flattening and osseous beaking invol ving the second and fifth metacarpal heads an which may in part be related to remote trauma. Mild tonja rowing of the fifth metacarpophalangeal articulation. No acute fracture. No dislocation. Soft tissues: Dorsal soft tissue swelling. No radiopaque foreign body. IMPRESSION: Dorsal soft tissue swelling. No acute fracture. Electronically signed by: Genevieve Wakefield MD 07/27/2023 02:41 AM CDT RP Due to temporary technical issues with the PACS/Fluency reporting system, reports are being signed by the in house radiologist without review as a courtesy to ensure prompt reporting. The interpreting r adiologist is fully responsible for the content of the report.
== END 2023-07-27 03:56 | disposition home or self-care (01) ==
LOC: ER 00:18
DX: S60.221A Contusion of right hand, initial encounter (principal); M10.9 Gout, unspecified; M13.841 Other specified arthritis, right hand
CPT/HCPCS: 96372; 99284; J7512

== ENCOUNTER 2024-10-17 18:37 | Emergency (ER) | payer OTHER, SELFPAY ==
--- OUTSIDE RECORDS SUMMARY | 2024-10-17 18:41 | XMS REPORT | Continuity of Care Document ---
Author Name Unknown Address [address] [facility] [place] [address] [facility] [place] Address [address] [facility] [address] [place] [address] Care Team Providers Care Plastics Process Hand Name Role Phone Galo Sandoval Primary Care Physician Campaigns, Generic Provider Attending Clinician Unavailable SHARON FAIR Attending Clinician Unavailable SHARON FAIR Attending Clinician Unavailable Sharon Henry Attending Clinician [phone] Doctor Unassigned, Abram Attending Clinician U TONY Walton Attending Clinician Unavailable TONY DELVALLE Attending Clinician Unavailable Tony Nelson Attending Clinician ELIZABETH MORAES Attending Clinician Unavaila ble Elizabeth Montano Attending Clinician VIANEY WIGGINS S Attending Clinician Unavailable Vianey Suggs S Attending Clinician [phone] Laura Sanders RN Attending Clinician Unavailable Ana Maria Zhang Attending Clinician Doctor Unassigned, Abram Attending Clinician U IRMA [place]burn Attending Clinician Unavailable Katja Gutierrez Attending Clinician [phone] Irma Dsouza MD Attending Clinician SHARON FAIR Admitting Clinician Unavailable TONY DELVALLE Admitting Clinician Unavailable IRMA DSOUZA Admitting Clinician Unavailable Irma Dsouza MD Admitting Clinician [phone] Payers Payer Name Policy Type Policy Number Effective Date Expirati on Date Source Problems Condition Name Condition Details Condition Category Status Onset Date Resolution Date Last Treatment Date Treating Clinician Comments Source DVT (deep venous thrombosis ) DVT (deep venous thrombosis ) Disease Active 2017-02 00:00: 00 [facility] Obesity (BMI 30-39.9) Obesity (BMI 30-39.9) Disease Active 2017-02 00:00: 00 [facility] Allergies, Adverse Reactions, Alerts Allergy Name Allergy Type Status Severity Reaction(s) Onset Date Inactive Date Treating Clinician Comments Source NO KNOWN ALLERGIE S Drug Class Active [facility] Social History Social Habit Start Date Stop Date Quantity Comments Source History SDOH Alcohol Frequency [facility] History SDOH Alcohol Std Drinks [facility] History SDOH Alcohol Binge [facility] of tobacco use Cigar Smoker [facility] History of Social function 2024-03-04 00:00:00 2024-03-04 00:00:00 [facility] Alcoholic beverage intake 2024-03-04 00:00:00 2024-03-04 00:00:00 Current drinker of alcohol (finding) [facility] Alcohol intake 2023-06-13 00:00:00 2023-06-13 00:00:00 Current drinker of alcohol (finding) [facility] Exposure to SARS-CoV-2 (event) 2021-02-04 00:00:00 2021-03-06 00:01:00 Not sure [facility] Tobacco use and exposure 2019-08-02 00:00:00 2019-08-02 00:00:00 Smokeless tobacco non-user [facility] Tobacco Comment 2018-02-04 00:00:00 2018-02-04 00:00:00 1 cigar a week for the past 1.5 years [facility] Alcohol Comment 2017-05-12 00:00:00 2017-05-12 00:00:00 socially [facility] Sex assigned at 2000 00:00:00 2000 00:00:00 [facility] Smoking Status Start Date Stop Date Source Ex-smoker 2019-08-02 00:00:00 2019-08-02 00:00:00 U [facility] Current some day smoker 2019-01-07 00:00:00 [facility] Never smoked tobacco [facility] Medications Ordered Medication Name Filled Medication Name Start Date Stop Date Current Medication? Ordering Clinician Indication Dosage Frequency Signature (SIG) Comments Components Source allopurinol 100 mg tablet 09-04 00:00: 00 Yes 1mg Byron Segovia colchicine 0.6 mg tablet 09-04 00:00: 00 Yes mg Byron Segovia allopurinol 100 mg tablet 08-07 00:00: 00 Yes 1mg Byron Segovia colchicine 0.6 mg tablet 08-05 00:00: 00 Yes mg Byron Segovia predniSONE (DELTASONE) tablet 50 mg 06-14 00:15: 00 06-13 23:33 :00 No 50mg 50 mg, Oral, ONCE NOW, 1 dose, On [facility] 06/13/24 at 191, Routine [facility] ketorolac (TORADOL) injection 30 mg 06-14 00:15: 00 06-13 23:35 :00 No 30mg 30 mg, Intramuscu lar, ONCE, 1 dose, On [facility] 06/13/24 at 191, Routine [facility] colchicine 0.6 mg tablet 06-13 00:00: 00 Yes [id number] .6mg Take 1 tablet by mouth 2 (two) times daily as needed for Other or Pain (scale 7-10) (beginning of gout attack). [facility] methylPREDN ISolone 4 mg tablets 06-13 00:00: 00 Yes [id number] Take by mouth SEE-INSTRU CTIONS. follow package directions [facility] ketorolac 10 mg tablet 06-13 00:00: 00 Yes [id number] 10mg Take 1 tablet by mouth every 6 (six) hours as needed for Pain (scale 4-6). [facility] dexamethaso ne sod phos PF injection 10 mg 03-05 01:25: 00 03-05 02:06 :00 No 10mg 10 mg, Intramuscu lar, ONCE, 1 dose, On Mon03/04/24 at 1930, 1 mL [facility] ketorolac (TORADOL) injection 30 mg 03-05 01:25: 00 03-05 02:06 :00 No 30mg 30 mg, Intramuscu lar, ONCE, 1 dose, On Mon03/04/24 at 1930, KEMI [facility] colchicine 0.6 mg tablet 03-04 00:00: 00 06-13 00:00 :00 No [id number] .6mg Take 1 tablet by mouth 2 (two) times daily as needed for Other or Pain (scale 7-10) (Gout attack pain). [facility] methylPREDN ISolone 4 mg tablets 03-04 00:00: 00 06-13 00:00 :00 No [id number] Take by mouth SEE-INSTRU CTIONS. follow package directions [facility] ketorolac (TORADOL) injection 30 mg 06-13 00:15: 00 06-13 01:30 :00 No 30mg 30 mg, Intramuscu lar, ONCE, 1 dose, On Mon06/13/23 at 1915, Routine [facility] dexamethaso ne (DECADRON PHOSPHATE) injection 10 mg 06-13 00:15: 00 06-13 01:29 :00 No 10mg 10 mg, Oral, ONCE, 1 dose, On Mon06/13/23 at 1915, Routine [facility] ibuprofen 800 mg tablet 06-12 00:00: 00 Yes [id number] 800mg Take 1 tablet by mouth every 8 (eight) hours as needed for Pain (scale 4-6). [facility] predniSONE 20 mg tablet 06-12 00:00: 00 06-26 04:59 :00 No [id number] Take 3 tablets by mouth every morning for 1 day, THEN 2.5 tablets every morning for 2 days, THEN 2 tablets every morning for 2 days, THEN 1.5 tablets every morning for 2 days, THEN 1 tablet every morning for 2 days, THEN 1 tablet every morning for 2 days, THEN 0.5 tablets every morning for 2 days. [facility] HYDROcodone -acetaminop hen (NORCO 5) 5-325 mg tablet 1 tablet 03-06 08:30: 00 03-06 07:29 :00 No 1{tbl} 1 tablet, Oral, ONCE, 1 dose, On 03/06/21 at 0230, KEMI [facility] colchicine 0.6 mg tablet 03-06 00:00: 00 Yes [id number] Take 2 pills by mouth followed by 1 pill one hour after [facility] acetaminoph en-codeine 300-30 mg tablet 03-06 00:00: 00 Yes [id number] 1{tbl} Take 1 tablet by mouth every 4 (four) hours as needed for Pain (scale 7-10). Indication s: acute pain [facility] apixaban 5 mg tablet 08-25 00:00: 00 Yes [id number] 5mg Take 1 tablet by mouth 2 (two) times daily. Indication s: Treatment to Prevent Recurrence of a Clot in a Deep Vein [facility] apixaban 5 mg tablet 08-11 00:00: 00 08-04 00:00 :00 No [id number] 5mg Take 1 tablet by mouth 2 (two) times daily for 30 days. Indication s: Treatment to Prevent Recurrence of a Clot in a Deep Vein [facility] docusate (COLACE) capsule 100 mg 08-04 14:00: 00 Yes 100mg 100 mg, Oral, DAILY, First dose on 08/05/19 at 0900, Until Discontinu ed, Routine [facility] Polyethylen e Glycol 3350 (MIRALAX) powder 17 g 08-04 03:27: 00 08-04 05:15 :00 No 17g 17 g, Oral, ONCE, 1 dose, 08/04/19 at 2230, Routine [facility] melatonin (MELATIN) tablet 6 mg 08-04 02:41: 00 08-04 03:16 :00 No 6mg 6 mg, Oral, ONCE, 1 dose, 08/04/19 at 2145, Routine [facility] acetaminoph en-codeine 300-30 mg tablet 08-04 00:00: 00 03-06 00:00 :00 No [id number] 1{tbl} Take 1 tablet by mouth every 4 (four) hours as needed (foot pain). [facility] rivaroxaban (XARELTO) 15 mg tablet 08-04 00:00: 00 08-26 04:59 :00 No [id number] 15mg Take 1 tablet by mouth 2 (two) times daily for 21 days. Indication s: Treatment to Prevent Recurrence of a Clot in a Deep Vein [facility] apixaban 5 mg tablet 08-04 00:00: 00 08-04 00:00 :00 No [id number] 10mg Take 2 tablets by mouth 2 (two) times daily for 7 days. Indication s: Treatment to Prevent Recurrence of a Clot in a Deep Vein [facility] HYDROcodone -acetaminop hen (NORCO) 10-325 mg tablet 1 tablet 08-03 23:45: 14 Yes 1{tbl} 1 tablet, Oral, Q6HPRN, Starting 08/04/19 at 1845, Until Discontinu ed, Routine, Pain (scale 4-6) [facility] melatonin (MELATIN) tablet 6 mg 08-03 08:06: 00 08-03 08:16 :00 No 6mg 6 mg, Oral, ONCE, 1 dose, 08/04/19 at 0315, Routine [facility] lidocaine (LIDODERM) 5 % (700 mg/patch) patch 1 Patch 08-03 07:45: 00 08-03 18:39 :00 No 1{patch } 1 Patch, Topical, Administer over 12 Hours, ONCE, 1 dose, 08/04/19 at 0245, Routine [facility] acetaminoph en-codeine (TYLENOL #3) 300-30 mg tablet 1 tablet 08-02 20:14: 30 08-03 23:45 :01 No 1{tbl} 1 tablet, Oral, Q4HPRN, Starting 08/03/19 at 1514, Until 08/04/19 at 1845, Routine, Pain (scale 4-6) [facility] morpHINE injection 2 mg 08-02 05:57: 53 Yes 2mg 2 mg, Slow IV Push, Q4HPRN, Starting 08/03/19 at 0057, Until Discontinu ed, Routine, Pain (scale 7-10) [facility] enoxaparin (LOVENOX) injection 100 mg 08-02 01:45: 00 08-02 00:54 :42 No 1mg/kg 100 mg (rounded from 104.3 mg = 1 mg/kg ?104.3 kg), Subcutaneo us, ONCE, 1 dose, Mon08/02/19 at 204, KEMI [facility] traMADol (ULTRAM) tablet 50 mg 08-02 01:18: 13 08-02 20:14 :50 No 50mg 50 mg, Oral, Q8HPRN, Starting Mon08/02/19 at 2018, Until 08/03/19 at 1514, Routine, Pain (scale 4-6) [facility] enoxaparin (LOVENOX) injection 100 mg 08-02 01:00: 00 Yes 1mg/kg 100 mg (rounded from 104.3 mg = 1 mg/kg ?104.3 kg), Subcutaneo us, Q12H, First dose on Mon08/02/19 at 2000, Until Discontinu ed, Routine [facility] iohexol (OMNIPAQUE 350 BULK-150 mL) injection 120 mL 08-01 23:16: 00 08-01 23:17 :00 No 120mL 120 mL, Intravenou s, ONCE, 1 dose, Mon08/02/19 at 1830, Routine [facility] traMADol 50 mg tablet 8-12 00:00: 08-04 00:00 :00 No [id number] 50mg Take 1 tablet by mouth every 6 (six) hours as needed for Pain (scale 4-6). [facility] acetaminoph en-codeine 300-30 mg tablet 7-04 00:00: 00 08-04 00:00 :00 No [id number] 9107 1{tbl} Take 1 tablet by mouth every 4 (four) hours as needed (foot pain). [facility] cyclobenzap rine 10 mg tablet 17 00:00: 00 Yes [id number] 10mg Take 1 tablet by mouth 3 (three) times daily. [facility] traMADOL (ULTRAM) 50 mg tablet 24 00:00: 00 Yes [id number] 50mg Take 1 tablet by mouth every 6 (six) hours as needed for Pain (scale 4-6). [facility] apixaban 5 mg tablet 2017-0218 00:00: 00 08-04 00:00 :00 No 5mg Take 1 tablet by mouth 2 (two) times daily. [facility] cephALEXin (KEFLEX) 500 mg capsule 2017-02 218 00:00: 00 08-04 00:00 :00 No 500mg Take 1 capsule by mouth 4 (four) times daily. [facility] apixaban 5 mg tablet 2017-02 2-11 00:00: 00 08-04 00:00 :00 No 10mg Take 2 tablets by mouth 2 (two) times daily. [facility] Immunizations Ordered Immunization Name Filled Immunization Name Date Status Comments Source Influenza Virus Vaccine Quad IM 3+ YRS 2017-05-12 00:00:00 Completed [facility] Influenza Virus Vaccine Quad IM 3+ YRS 2017-05-12 00:00:00 Completed [facility] Influenza Virus Vaccine Quad IM 3+ YRS 2017-05-12 00:00:00 Completed [facility] Influenza Virus Vaccine Quad IM 3+ YRS 2017-05-12 00:00:00 Completed [facility] Influenza Virus Vaccine Quad IM 3+ YRS 2017-05-12 00:00:00 Completed [facility] Influenza Virus Vaccine Quad IM 3+ YRS 2017-05-12 00:00:00 Completed [facility] Influenza Virus Vaccine Quad IM 3+ YRS 2017-05-12 00:00:00 Completed [facility] Influenza Virus Vaccine Quad IM 3+ YRS 2017-05-12 00:00:00 Completed [facility] Influenza Virus Vaccine Quad IM 3+ YRS 2017-05-12 00:00:00 Completed [facility] Influenza Virus Vaccine Quad IM 3+ YRS Unknown Completed [facility] Vital Signs Vital Name Observation Time Observation Value Comments Young garcia Systolic blood pressure 2024-06-14 01:35:41 119 mm[Hg] [facility] Diastolic blood pressure 2024-06-14 01:35:41 79 mm[Hg] [facility] Heart rate 2024-06-14 01:35:41 70 /min [facility] Body temperature 2024-06-14 01:35:41 36.83 Jennie [facility] Respiratory rate 2024-06-14 01:35:41 18 /min [facility] Oxygen saturation in Arterial blood by Pulse oximetry 2024-06-14 01:35:41 98 /min [facility] Body height 2024-06-13 23:07:00 170.2 cm [facility] Body weight 2024-06-13 23:07:00 95.255 kg [facility] BMI 2024-06-13 23:07:00 32.89 kg/m2 [facility] Systolic blood pressure 2024-03-05 03:30:19 110 mm[Hg] [facility] Diastolic blood pressure 2024-03-05 03:30:19 66 mm[Hg] [facility] Heart rate 2024-03-05 03:30:19 69 /min [facility] Body temperature 2024-03-05 03:30:19 36.94 Jennie [facility] Respiratory rate 2024-03-05 03:30:19 16 /min [facility] Oxygen saturation in Arterial blood by Pulse oximetry 2024-03-05 03:30:19 98 /min [facility] Body height 2024-03-05 00:13:00 167.6 cm [facility] Body weight 2024-03-05 00:13:00 81.647 kg [facility] BMI 2024-03-05 00:13:00 29.05 kg/m2 [facility] Systolic blood pressure 2023-06-14 01:29:25 133 mm[Hg] [facility] Diastolic blood pressure 2023-06-14 01:29:25 71 mm[Hg] [facility] Heart rate 2023-06-14 01:29:25 85 /min [facility] Respiratory rate 2023-06-14 01:29:25 16 /min [facility] Oxygen saturation in Arterial blood by Pulse oximetry 2023-06-14 01:29:25 98 /min [facility] Body temperature 2023-06-13 22:21:00 37.11 Jennie [facility] Body height 2023-06-13 22:21:00 167.6 cm [facility] Body weight 2023-06-13 22:21:00 97.523 kg [facility] BMI 2023-06-13 22:21:00 34.70 kg/m2 [facility] Systolic blood pressure 2021-03-06 07:31:00 132 mm[Hg] [facility] Diastolic blood pressure 2021-03-06 07:31:00 89 mm[Hg] [facility] Heart rate 2021-03-06 07:31:00 105 /min [facility] Body temperature 2021-03-06 06:03:00 37.67 Jennie [facility] Respiratory rate 2021-03-06 06:03:00 18 /min [facility] Body height 2021-03-06 06:03:00 170.2 cm [facility] Body weight 2021-03-06 06:03:00 102.513 kg [facility] BMI 2021-03-06 06:03:00 35.40 kg/m2 [facility] Oxygen saturation in Arterial blood by Pulse oximetry 2021-03-06 06:03:00 97 /min [facility] Heart rate 2019-08-05 15:50:00 108 /min [facility] Body temperature 2019-08-05 15:50:00 36.17 Jennie [facility] Respiratory rate 2019-08-05 15:50:00 18 /min [facility] Oxygen saturation in Arterial blood by Pulse oximetry 2019-08-05 15:50:00 94 /min [facility] Systolic blood pressure 2019-08-05 15:50:00 124 mm[Hg] [facility] Diastolic blood pressure 2019-08-05 15:50:00 80 mm[Hg] [facility] Body weight 2019-08-05 09:13:00 102.468 kg [facility] BMI 2019-08-05 09:13:00 38.78 kg/m2 [facility] Body height 2019-08-02 20:57:00 162.6 cm [facility] Systolic blood pressure 2018-10-08 19:00:00 128 mm[Hg] [facility] Diastolic blood pressure 2018-10-08 19:00:00 78 mm[Hg] [facility] Heart rate 2018-10-08 19:00:00 109 /min [facility] Respiratory rate 2018-10-08 19:00:00 20 /min [facility] Oxygen saturation in Arterial blood by Pulse oximetry 2018-10-08 19:00:00 97 /min [facility] Body temperature 2018-10-08 17:30:00 37.5 Jennie [facility] Body height 2018-10-08 17:30:00 165.1 cm [facility] Body weight 2018-10-08 17:30:00 97.523 kg [facility] BMI 2018-10-08 17:30:00 35.78 kg/m2 [facility] BP Systolic 2024-09-18 09:04:00 123 mm[Hg] Burke Segovia BP Diastolic 2024-09-18 09:04:00 80 mm[Hg] Deon Segovia Weight Measured 2024-09-18 09:04:00 188.60 pounds Byron Segovia Height Measured 2024-09-18 09:04:00 55.00 inches Byron F Luca Body Temperature 2024-09-18 09:04:00 98.50 degrees Byron F Luca Heart Rate 2024-09-18 09:04:00 82.00 /min Rukhsana en F Luca Respiratory Rate 2024-09-18 09:04:00 18.00 /min Byron F Luca BP Systolic 2024-09-04 10:34:00 144 mm[Hg] Step hen F Luca BP Diastolic 2024-09-04 10:34:00 88 mm[Hg] Deon phen F Luca Weight Measured 2024-09-04 10:34:00 197.00 pounds Byron F Luca Height Measured 2024-09-04 10:34:00 55.00 inches Byron F Luca Body Temperature 2024-09-04 10:34:00 97.70 degrees Byron F Luca Heart Rate 2024-09-04 10:34:00 56.00 /min Rukhsana en F Luca Respiratory Rate 2024-09-04 10:34:00 18.00 /min Byron F Luca Respiratory Rate 2024-08-05 15:25:00 18.00 /min Byron F Luca BP Systolic 2024-08-05 15:25:00 122 mm[Hg] Step hen F Luca BP Diastolic 2024-08-05 15:25:00 77 mm[Hg] Deon phen F Luca Weight Measured 2024-08-05 15:25:00 193.40 pounds Byron F Luca Height Measured 2024-08-05 15:25:00 55.00 inches Byron F Luca Body Temperature 2024-08-05 15:25:00 98.40 degrees Byron F Luca Heart Rate 2024-08-05 15:25:00 81.00 /min Rukhsana en F Luca Procedures Procedure Date / Time Performed Performing Clinician Source XR FINGERS 2 VW RIGHT 2024-06-13 23:46:00 Yonas Fair [facility] XR ELBOW >3 VW RIGHT 2024-03-05 02:08:00 Deepak Delvalle [facility] NOTICE OF PRIVACY PRACTICES 2021-03-06 05:54:45 Doctor Unassigned, Abram [facility] CONSENT/REFUSAL FOR DIAGNOSIS AND TREATMENT 2021-03-06 05:54:27 Doctor Unassigned, Abram [facility] MEDICATION CORRESPONDENCE 2019-08-06 05:01:00 Do ctor Unassigned, Abram [facility] UNILATERAL VENOUS DUPLEX UPPER BY VASCULAR LAB 2019-08-05 15:42:25 D[facility] XR ELBOW <3 VW RIGHT 2019-08-04 15:40:55 Donaldo Smith [facility] BASIC METABOLIC PANEL (NA, K, CL, CO2, GLUCOSE, BUN, CREATININE, CA) 2019-08-03 08:41:00 Irma Dsouza [facility] COVID-19 (ID NOW RAPID TESTING) 2019-08-03 00:53:00 Katja Saez [facility] EKG-12 LEAD 2019-08-03 00:39:18 Korin Yen [facility] CT CHEST PULMONARY ANGIOGRAM 2019-08-02 23:25:53 Katja Saez [facility] UNILATERAL VENOUS DUPLEX LOWER EXTREMITY BY VASCULAR LAB 2019-08-02 21:43:52 Katja Saez [facility] COMP. METABOLIC PANEL ([id number]) 2019-08-02 21:41:00 Katja Saez [facility] CBC WITH DIFFERENTIAL 2019-08-02 21:41:00 Katja Saez [facility] EKG-12 LEAD 2019-08-02 21:33:27 Kataj Saez [facility] NOTICE OF PRIVACY PRACTICES 2019-08-02 21:24:25 Doctor Unassigned, Abram [facility] CONSENT/REFUSAL FOR DIAGNOSIS AND TREATMENT 2019-08-02 20:53:33 Doctor Unassigned, Abram [facility] XR ELBOW <3 VW RIGHT 2018-10-08 18:45:13 Vianey Wiggins [facility] XR SHOULDER 2+ VW RIGHT 2018-10-08 18:45:13 Von Wiggins [facility] CONSENT/REFUSAL FOR DIAGNOSIS AND TREATMENT 2018-10-08 17:13:21 Doctor Unassigned, Abram [facility] Encounters Start Date/Time End Date/Time Encounter Type Admission Type Attending Clinicians Care Facility Care Department Encounter ID Source 2024-09-18 08:57:42 2024-09-18 08:57:[address] [facility] [id number] Byron Segovia 2024-09-18 00:00:00 2024-09-18 00:00:[address] [facility] [id number] Byron Segovia 2024-09-04 10:29:54 2024-09-04 10:29:[address] [facility] 09 Byron Segovia 2024-09-04 00:00:00 2024-09-04 00:00:[address] [facility] [id number] Byron Segovia 2024-08-05 15:17:02 2024-08-05 15:17:[address] [facility] 09 Byron Segovia 2024-08-05 00:00:00 2024-08-05 00:00:[address] [facility] [id number] Byron Mulligan Luca 2024-06-26 00:00:00 2024-06-26 10:00:01 Letter (Out) Campaigns, Generic Provider Campaigns, Generic Provider [facility] 1..840.114 [id number] [facility] 2024-06-13 18:10:00 2024-06-13 20:37:00 Emergency SHARON LAYNE ERICCA [facility] ERT [id number] [facility] 2024-06-13 18:10:00 2024-06-13 20:37:00 Emergency Sharon Fair [facility] AT [facility] 1..840.114 [id number] [facility] 2017-06-01 00:00:00 2024-04-13 03:22:53 Orders Only Doctor Unassigned, Abram Doctor Unassigned, Abram [facility] [place] [facility] [id number] [facility] 2024-03-04 18:15:00 2024-03-04 21:32:00 Emergency X TONY DELVALLE SHINTA [facility] ERT [id number] [facility] 2024-03-04 18:15:00 2024-03-04 21:32:00 Emergency Tony Delvalle [facility] AT [facility] [id number] [id number] [facility] 2023-06-13 17:22:00 2023-06-13 20:33:00 Emergency X ISABELLAGEOVANY ELIZABETH [facility] ERT [id number] [facility] 2023-06-13 17:22:00 2023-06-13 20:33:00 Emergency Adeline Sherrymarnienick F [facility] 1.2840.114 350.1.13.10 4.2.7.2.686 [id number] [facility] 2021-03-06 00:29:00 2021-03-06 01:37:00 Emergency X VIANEY WIGGINS [facility] ERT [id number] [facility] 2021-03-06 00:29:00 2021-03-06 01:37:00 Emergency Vianey Wiggins S [facility] 1.2840.114 350.1.13.10 4.2.7.2.686 [id number] [facility] 2020-08-29 00:00:00 2020-08-29 00:00:00 Nurse Triage Laura Sanders [facility] 1.2840.114 350.1.13.10 4.2.7.2.686 [id number] [facility] 2019-08-07 00:00:00 2019-08-07 00:00:00 Transition of Care Ana Maria Zhang 1.2.840.114 350.1.13.10 4.2.7.2.686 [id number] [facility] 2019-08-06 00:00:00 2019-08-06 00:00:00 Orders Only Doctor Unassigned, Abram [facility] 1.2840.114 350.1.13.10 4.2.7.2.686 [id number] [facility] 2019-08-02 15:59:29 2019-08-05 13:35:00 Inpatient X [facility] [id number] [facility] 2019-08-02 15:59:29 2019-08-05 13:35:00 Hospital Encounter Katja Saez [facility] 1.2840.114 350.1.13.10 4.2.7.2.686 [id number] [facility] 2019-08-02 00:00:00 2019-08-02 00:00:00 Orders Only Doctor Unassigned, Abram [facility] 1.2840.114 350.1.13.10 4.2.7.2.686 [id number] [facility] 2018-10-08 12:31:39 2018-10-08 14:41:00 Emergency Vianey Wiggins [facility] 1.2840.114 350.1.13.10 4.2.7.2.686 [id number] [facility] 2018-10-08 00:00:00 2018-10-08 00:00:00 Orders Only Doctor Unassigned, Abram [facility] 1.2840.114 350.1.13.10 4.2.7.2.686 [id number] [facility] Results Test Description Test Time Test Comments Results Result Co mments Source Byron SegoviaCOMPREHENSIVE METABOLIC [id number] 00:00:00* Test Item Value Reference Range Interpretation Comme nts GLUCOSE (test code = 2345-7) 94 mg/dL UREA NITROGEN (BUN) (test code = 3094-0) 13 mg/dL CREATININE (test code = 2160-0) 0.84 mg/dL EGFR (test code = 87869-8) 123 mL/min/1.73m2 BUN/CREATININE RATIO (test code = 3097-3) SEE NOTE: (calc) SODIUM (test code = 2951-2) 142 mmol/L POTASSIUM (test code = 2823-3) 3.7 mmol/L CHLORIDE (test code = 2075-0) 105 mmol/L CARBON DIOXIDE (test code = 2027-9) 25 mmol/L CALCIUM (test code = 72719-4) 10.1 mg/dL PROTEIN, TOTAL (test code = 2885-2) 7.6 g/dL ALBUMIN (test code = 1751-7) 4.7 g/dL GLOBULIN (test code = 11106-6) 2.9 g/dL(calc) ALBUMIN/GLOBULIN RATIO (test code = 1759-0) 1.6 (calc) BILIRUBIN, TOTAL (test code = 1975-2) 0.3 mg/dL ALKALINE PHOSPHATASE (test code = 6768-6) 91 U/L AST (test code = 1920-8) 13 U/L ALT (test code = 1742-6) 14 U/L Byron SegoviaURIC [id number] 00:00:00* Test Item Value Reference Range Interpretation Comme nts URIC ACID (test code = 3084-1) 9.1 mg/dL Byron SegoviaCBC (INCLUDES DIFF/PLT)2024-08-06 00:00:00* Test Item Value Reference Range Interpretation Comme nts WHITE BLOOD CELL COUNT (test code = 6690-2) 12.8 Thousand/uL RED BLOOD CELL COUNT (test code = 789-8) 4.81 Million/uL HEMOGLOBIN (test code = 718-7) 15.6 g/dL HEMATOCRIT (test code = 4544-3) 47.5 % MCV (test code = 787-2) 98.8 fL MCH (test code = 785-6) 32.4 pg MCHC (test code = 786-4) 32.8 g/dL RDW (test code = 788-0) 11.8 % PLATELET COUNT (test code = 777-3) 280 Thousand/uL MPV (test code = 776-5) 10.9 fL ABSOLUTE NEUTROPHILS (test code = 751-8) 7808 cells/uL ABSOLUTE BAND NEUTROPHILS (test code = 69385-5) DNR cells/uL ABSOLUTE METAMYELOCYTES (test code = 29233-4) DNR cells/uL ABSOLUTE MYELOCYTES (test code = 72515-2) DNR cells/uL ABSOLUTE PROMYELOCYTES (test code = 69666-8) DNR cells/uL ABSOLUTE LYMPHOCYTES (test code = 731-0) 3610 cells/uL ABSOLUTE MONOCYTES (test code = 742-7) 1165 cells/uL ABSOLUTE EOSINOPHILS (test code = 711-2) 179 cells/uL ABSOLUTE BASOPHILS (test code = 704-7) 38 cells/uL ABSOLUTE BLASTS (test code = 49778-7) DNR cells/uL ABSOLUTE NUCLEATED RBC (test code = 28980-9) DNR cells/uL NEUTROPHILS (test code = 770-8) 61 % BAND NEUTROPHILS (test code = 764-1) DNR % METAMYELOCYTES (test code = 740-1) DNR % MYELOCYTES (test code = 749-2) DNR % PROMYELOCYTES (test code = 783-1) DNR % LYMPHOCYTES (test code = 736-9) 28.2 % REACTIVE LYMPHOCYTES (test code = 80997-6) DNR % MONOCYTES (test code = 5905-5) 9.1 % EOSINOPHILS (test code = 713-8) 1.4 % BASOPHILS (test code = 706-2) 0.3 % BLASTS (test code = 709-6) DNR % NUCLEATED RBC (test code = 76970-2) DNR /100WBC COMMENT(S) (test code = 8251-1) DNR Byron F AustinCOMPREHENSIVE METABOLIC [id number] 00:00:00* Test Item Value Reference Range Interpretation Comme nts GLUCOSE (test code = 2345-7) 94 mg/dL UREA NITROGEN (BUN) (test code = 3094-0) 13 mg/dL CREATININE (test code = 2160-0) 0.84 mg/dL EGFR (test code = 43440-9) 123 mL/min/1.73m2 BUN/CREATININE RATIO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
--- NOTE | 2024-10-17 19:33 | RAD REPORT ---
EXAM: Hand Left 3 View HISTORY: PAIN COMPARISON: None FINDINGS: Bones: No acute fracture identified. Alignment:No significant malalignment. Degenerative changes:Degenerative changes radiocarpal joint where there is bgiy-gj-eyyp contact. Ther e is partial carpal collapse. Other: n/a IMPRESSION: No acute osseous abnormality involving the imaged hand.
--- NOTE | 2024-10-17 19:38 | RAD REPORT ---
EXAMINATION: Elbow Left 3 View VIEWS: Three views CLINICAL INDICATION: Male, 24 years old. PAIN COMPARISON: No prior exam. IMPRESSION: No acute fracture. Small ossific densities at the olecranon could be from an age indeterminate avulsion fracture.
[2024-10-17] MEDS ORDERED: HYDROCODONE/APAP 7.5/325 MG TAB ONE (19:51)
--- NOTE | 2024-10-17 20:44 | EDPHYS ---
Physician Documentation [facility] Name: Triston Ballard Age: 24 yrs Sex: Male : 2000 Arrival Date: 10/17/2024 Time: 18:37 Bed DX3 Private MD: ED Physician Shawn Sheehan HPI: 10/17 19:00 This 24 yrs old Male presents to ER via Ambulatory with complaints of Elbow cp pain. 19:00 The patient or guardian complains of pain, that is acute, swelling, tenderness. The cp complaints affect the left hand and left elbow. Context: history of gout. patient denies injury and reports pain and swelling due to flare up of gout. 19:00 Onset: The symptoms/episode began/occurred gradually, and became worse today. Treatment cp prior to arrival includes: no previous treatment. Associated signs and symptoms: Pertinent positives: painful ROM, Pertinent negatives: decreased range of motion, fever, numbness. Historical: - Allergies: 18:49 NKA; me1 - PMHx: 18:49 blood clot in R leg; Gout; Headaches; me1 - PSHx: 18:49 None; me1 - Immunization history:: Adult Immunizations up to date. - Infectious Disease History:: Denies. - Social history:: Smoking status: Patient reports the use of cigarette tobacco products, smokes one-half pack cigarettes per day. ROS: 19:05 Constitutional: Negative for body aches, chills, fever, poor PO intake, cp 19:05 Eyes: Negative for injury, pain, redness, and discharge, cp 19:05 Cardiovascular: Negative for chest pain, 19:05 Respiratory: Negative for cough, shortness of breath, wheezing, 19:05 Abdomen/GI: Negative for abdominal pain, vomiting, diarrhea, constipation, 19:05 MS/extremity: Positive for pain, swelling, tenderness, of the left elbow and left hand, Negative for injury or acute deformity, decreased range of motion, paresthesias, 19:05 All other systems are negative, Exam: 19:10 Constitutional: The patient appears in no acute distress, alert, awake, cp non-diaphoretic, non-toxic, well developed, well nourished, uncomfortable, 19:10 Head/Face: Normocephalic, atraumatic. cp 19:10 Chest/axilla: Inspection: normal, 19:10 Cardiovascular: Rate: normal, Rhythm: regular, Pulses: Pulses are 2+ in left radial artery. 19:10 Respiratory: the patient does not display signs of respiratory distress, Respirations: normal, no use of accessory muscles, no retractions, labored breathing, is not present, Breath sounds: are clear throughout, no decreased breath sounds, no stridor, no wheezing, 19:10 Abdomen/GI: Inspection: abdomen appears normal, Bowel sounds: active, all quadrants, Palpation: abdomen is soft and non-tender, in all quadrants, 19:10 Back: pain, is absent, ROM is normal, 19:10 Musculoskeletal/extremity: Extremities: noted in the left elbow: tenderness, mild cp swelling noted posterior left elbow, skin warm/dry/intact, pain with passive ROM, noted in the left hand: mild swelling, tenderness of dorsal side left hand, skin warm/dry/intact with no erythema, Vital Signs: 18:48 BP 128 / 79; Pulse 95; Resp 17; Temp 98.4; Pulse Ox 98% ; Weight 85.73 kg; Height 5 ft. me1 5 in. ; Pain 9/10; 20:55 BP 132 / 81; Pulse 92; Resp 16; Temp 98.3; Pulse Ox 100% ; me1 18:48 Body Mass Index 31.45 (85.73 kg, 165.1 cm) me1 18:48 Pain Scale: Adult me1 MDM: 19:00 Differential diagnosis: closed fracture, tendonitis, cellulitis, gout. 19:02 Medical Screening Exam initiated britton 20:42 Data reviewed: vital signs, nurses notes, radiologic studies, plain films, and as a cp result, I will discharge patient. 20:42 I considered the following discharge prescriptions or medication management in the emergency department Medications were administered in the Emergency Department. See MAR. Counseling: I had a detailed discussion with the patient and/or guardian regarding the historical points, exam findings, and any diagnostic results supporting the discharge/admit diagnosis, radiology results, to return to the emergency department if symptoms worsen or persist or if there are any questions or concerns that arise at home. Response to treatment: the patient's symptoms have mildly improved after treatment, and as a result, I will discharge patient. 10/17 18:50 Order name: XRAY Elbow LEFT 3 view 10/17 18:50 Order name: XRAY Hand LEFT 3 View cp 10/17 20:42 Order name: Sling; Complete Time: 20:49 cp Administered Medications: 18:50 CANCELLED (Physician Discretion): [id number] mg IVP once cp 19:56 Drug: Dexamethasone IM 10 mg IM once Route: IM; Site: right deltoid; me1 20:35 Follow up: Response: No adverse reaction me1 19:56 Drug: Hydrocodone-Acetaminophen PO (7.5 mg-325 mg) 1 tabs PO once; RASS on ADMIN: me1 Combtv4, Very Agttd3, Agttd2, Rstlss1, AlertClm0, Drwsy-1, Lt Sdtn-2, Mod Sdtn-3, Dp Sdtn-4, UnArsble-5 Route: PO; 20:35 Follow up: Response: No adverse reaction; Pain is decreased me1 Disposition Summary: 10/17/24 20:43 Discharge Ordered Notes: Location: Home cp Condition: Stable cp Diagnosis - Pain in left elbow cp - Pain in left hand cp Followup: cp - With: Private Physician - When: 2 - 3 days - Reason: Worsening of condition Discharge Instructions: - Discharge Summary Sheet cp - Joint Pain cp - Gout cp - Gout, Nwtz-do-Qlvb cp - Hand Pain cp Forms: - Medication Reconciliation Form cp - Antibiotic Education cp - Prescription Opioid Use cp - Patient Portal Instructions cp - Leadership Thank You Letter cp - Work release form me1 Prescriptions: - Tramadol 50 mg Oral Tablet - take 1 tablet ORAL route every 8 hours as needed; 12 tablet; Refills: 0, cp Product Selection Permitted - Medrol (Eric) 4 mg Oral Tablets, Dose Pack - take 1 tablet ORAL route as directed - follow package instructions; 1 packet; cp Refills: 0, Product Selection Permitted Addendum: 10/18/2024 23:34 Co-signature as Attending Physician, Shawn Sheehan MD I agree with the assessment and c matson plan of care. Signatures: Dispatcher [employer] Shawn Ansari MD MD cha Page, Corey, PA-C PA-C cp Kayli Glass, RN RN me1 Corrections: (The following items were deleted from the chart) 10/17 18:50 18:50 Ketorolac IVP 30 mg IVP once ordered. cp cp
--- NOTE | 2024-10-17 20:44 | ER ---
Nurse's Notes [facility] Name: Triston Ballard Age: 24 yrs Sex: Male : 2000 Arrival Date: 10/17/2024 Time: 18:37 Bed DX3 Private MD: Diagnosis: Pain in left elbow;Pain in left hand Presentation: 10/17 18:48 Chief complaint: Patient states: L knee pain started a few days ago and not left elbow me1 and left hand are hurting. Hx of gout. 11/06 "throbbing". Coronavirus screen: Vaccine status: Patient reports receiving the 2nd dose of the covid vaccine. Ebola Screen: No symptoms or risks identified at this time. Initial Sepsis Screen: Does the patient meet any 2 criteria? HR > 90 bpm. Does the patient have a suspected source of infection? No. Patient's initial sepsis screen is negative. Risk Assessment: Do you want to hurt yourself or someone else? Patient reports no desire to harm self or others. Onset of symptoms was October 15, 2024. 18:48 Method Of Arrival: Ambulatory pr1 18:48 Acuity: JULIANNE 4 me1 Triage Assessment: 18:49 General: Appears uncomfortable, well groomed, well developed, well nourished, Behavior me1 is calm, cooperative, appropriate for age. Pain: Complains of pain in left elbow Pain does not radiate. Pain currently is 9 out of 10 on a pain scale. Quality of pain is described as throbbing, Pain began 2-3 days ago. Is continuous. EENT: No signs and/or symptoms were reported regarding the EENT system. Neuro: Level of Consciousness is awake, alert, obeys commands, Oriented to person, place, time, situation, Appropriate for age. Cardiovascular: Patient's skin is warm and dry. Respiratory: Airway is patent Respiratory effort is even, unlabored, Respiratory pattern is regular, symmetrical. GI: No signs and/or symptoms were reported involving the gastrointestinal system. : No signs and/or symptoms were reported regarding the genitourinary system. Derm: Skin is intact, is healthy with good turgor, Skin is normal. Musculoskeletal: Circulation, motion, and sensation intact. Range of motion: limited in left elbow and left knee Reports pain in left elbow. Historical: - Allergies: 18:49 NKA; me1 - PMHx: 18:49 blood clot in R leg; Gout; Headaches; me1 - PSHx: 18:49 None; me1 - Immunization history:: Adult Immunizations up to date. - Infectious Disease History:: Denies. - Social history:: Smoking status: Patient reports the use of cigarette tobacco products, smokes one-half pack cigarettes per day. Screenin:50 [facility] ED Fall Risk Assessment (Adult) History of falling in the last 3 months, vc1 including since admission No falls in past 3 months (0 pts) Confusion or Disorientation No (0 pts) Intoxicated or Sedated No (0 pts) Impaired Gait No (0 pts) Mobility Assist Device Used No (0 pt) Altered Elimination No (0 pt) Score/Fall Risk Level 0 - 2 = Low Risk Oriented to surroundings, Maintained a safe environment, Educated pt \\T\\ family on fall prevention, incl call for assistance when getting out of bed, Assessed \\T\\ reinforced patient's understanding of fall precautions, Hourly rounding (assess needs \\T\\ fall precautionary measures) done. Abuse screen: Denies threats or abuse. Nutritional screening: No deficits noted. Tuberculosis screening: No symptoms or risk factors identified. Assessment: 20:45 General: See triage assessment. me1 Vital Signs: 18:48 BP 128 / 79; Pulse 95; Resp 17; Temp 98.4; Pulse Ox 98% ; Weight 85.73 kg; Height 5 ft. me1 5 in. ; Pain 9/10; 20:55 BP 132 / 81; Pulse 92; Resp 16; Temp 98.3; Pulse Ox 100% ; me1 18:48 Body Mass Index 31.45 (85.73 kg, 165.1 cm) me1 18:48 Pain Scale: Adult me1 ED Course: 18:40 Patient arrived in ED. mr 18:41 Shawn Winters PA-C is PHCP. cp 18:41 Shawn Sheehan MD is Attending Physician. cp 18:49 Triage completed. me1 18:49 Arm band placed on Patient placed in waiting room. me1 19:25 XRAY Elbow LEFT 3 view In Process Unspecified. EDMS 19:25 XRAY Hand LEFT 3 View In Process Unspecified. EDMS 19:56 Kayli Glass, ALEX is Primary Nurse. me1 20:51 Patient has correct armband on for positive identification. Bed in low position. vc1 Provided Education on: Plan of care, sling. 20:52 No provider procedures requiring assistance completed. vc1 20:56 Patient did not have IV access during this emergency room visit. me1 Administered Medications: 18:50 CANCELLED (Physician Discretion): [id number] mg IVP once cp 19:56 Drug: Dexamethasone IM 10 mg IM once Route: IM; Site: right deltoid; me1 20:35 Follow up: Response: No adverse reaction me1 19:56 Drug: Hydrocodone-Acetaminophen PO (7.5 mg-325 mg) 1 tabs PO once; RASS on ADMIN: me1 Combtv4, Very Agttd3, Agttd2, Rstlss1, AlertClm0, Drwsy-1, Lt Sdtn-2, Mod Sdtn-3, Dp Sdtn-4, UnArsble-5 Route: PO; 20:35 Follow up: Response: No adverse reaction; Pain is decreased me1 Medication: 20:52 VIS not applicable for this client. vc1 Outcome: 20:43 Discharge ordered by MD. cp 20:56 Discharged to home ambulatory, with significant other, me1 20:56 Condition: stable 20:56 Discharge instructions given to patient, significant other, Instructed on discharge instructions, follow up and referral plans. medication usage, Demonstrated understanding of instructions, follow-up care, medications, Prescriptions given X 2, 20:57 Patient left the ED. me1 Signatures: Dispatcher [employer] EDMN Emma Lewis, Reg Reg mr Shawn Winters, PADarinC PAJodie Washburn cp, RN RN vc1 Kayli Glass RN RN me1
[2024-10-17 21:44] VITALS: BP 128/79; TEMP 98.4; O2SAT 98
== END 2024-10-17 20:57 | disposition home or self-care (01) ==
LOC: ER 18:37
DX: M25.522 Pain in left elbow (principal); M79.642 Pain in left hand; F17.210 Nicotine dependence, cigarettes, uncomplicated
CPT/HCPCS: 73130; 73080; 96372; 99284; J1100